=== PATIENT | male | born 1945 | race Caucasian/White ===

== ENCOUNTER 2017-01-04 01:36 | Inpatient (IN) | payer MEDICARE, OTHER ==
[~2017-01-04] VITALS: Ht 172.7 cm; Wt 73.4 kg
[2017-01-04] VITALS (20 sets, daily range): BP systolic 94–143; BP diastolic 58–85; PULSE 77–97; RESP 18–24; TEMP 96.6–100.7; O2SAT 92–98
[~2017-01-04 01:36] MED LIST: ALBU1AER INH; ASPI81TA82 PO; AZIT250T74 PO; DUONI NEB; MEDR4PAK3 PO; METO50CR PO; SIMV40TA PO; SYMB160A INH; TAMS0.4C67 PO; TRAZ100 PO; VENL-37 PO; Z.0.OXYGENDME NC
[2017-01-04] MEDS ORDERED: SODIUM CHLORIDE 0.9% FLUSH 5 ML FLUSH IVF PRN ×2 (01:45→04:15)
[2017-01-04] MEDS ORDERED: AZITHROMYCIN INJ 500 MG in SODIUM CHLOR 0.9% 250 ML INJ 250 ML IV ONE (01:45)
[2017-01-04] MEDS ORDERED: cefTRIAXone INJ 1,000 MG in SODIUM CHLORIDE 0.9% INJ 100 ML IV ONE (01:45)
[2017-01-04] MEDS ORDERED: methylPREDNISolone SOD SUCC 125 MG/2 ML VIAL IVP ONE (01:45)
[2017-01-04] MEDS ORDERED: ACETAMINOPHEN 325 MG TAB PO ONE (01:45)
[2017-01-04] MEDS: RESP: ALBUTEROL 2.5 MG/IPRATROPIUM 0.5 MG NEB (SCH) INH (01:47)
[2017-01-04] MEDS ORDERED: SYMB160A INH (01:49)
[2017-01-04] MEDS ORDERED: ASPI1TAB69 PO (01:49)
[2017-01-04] MEDS ORDERED: TAMS0.4C4 PO (01:49)
[2017-01-04] MEDS ORDERED: ALBU0.08 NEB (01:49)
[2017-01-04] MEDS ORDERED: VENL37.5 PO (01:49)
[2017-01-04] MEDS ORDERED: TRAZ100T4 PO (01:49)
[2017-01-04] MEDS ORDERED: ALBUAER3 INH (01:49)
[2017-01-04] MEDS ORDERED: SIMV40TA PO (01:49)
[2017-01-04] MEDS ORDERED: METO50TA11 PO (01:49)
--- NOTE | 2017-01-04 02:11 | RADHPO ---
EXAM DATE/TIME: 01/04/2017 02:03 [place] COMPARISON: CHEST SINGLE AP, April 18, 2016, 10:09. INDICATIONS : Shortness of breath for 2 days MEDICAL HISTORY : Hypertension. Chronic obstructive pulmonary disease. Hypercholesterolemia. Hiatal hernia. Asthma SURGICAL HISTORY : Cholecystectomy. Inguinal hernia repair. ENCOUNTER: Initial ACUITY: 2 days PAIN SCORE: 5/10 LOCATION: Bilateral chest FINDINGS: There is significant patient rotation towards the right. The left lung is clear. In the medial righ t lower lung, there is a focal area of consolidation causing loss of delineation of the medial right hemidiaphragm. The heart is normal in size when taking into consideration the rotation. No evidence pneumothorax. The osseous structures are grossly intact. CONCLUSION: Probable consolidative infiltrate in the medial right lower lung. Sreekanth Vital MD on January 04, 2017 at 2:08 Board Certified Radiologist. This report was verified electronically.
[2017-01-04 02:30] LABS: CHLORIDE 103 MEQ/L (98-107); POTASSIUM 3.9 MEQ/L (3.5-5.1); SODIUM (NA) 139 MEQ/L (136-145)
[2017-01-04 02:33] LABS: AUTOMATED NEUTROPHIL # 9.6 TH/MM3 (1.8-7.7); BASOPHIL % 0.3 % (0.0-2.0); EOSINOPHIL % 0.3 % (0.0-4.0); HEMATOCRIT 52.8 % (39.0-51.0); LYMPH % 5.4 % (9.0-44.0); LYMPHOCYTE # 0.6 TH/MM3 (1.0-4.8); MEAN CELL VOLUME 90.9 FL (80.0-100.0); MEAN CORPUSCULAR HEMOGLOBIN 30.4 PG (27.0-34.0); MEAN CORPUSCULAR HGB CONC 33.4 % (32.0-36.0); MONO % 3.7 % (0.0-8.0); NEUT % 90.3 % (16.0-70.0); PLATELET COUNT 144 TH/MM3 (150-450); RED BLOOD COUNT 5.81 MIL/MM3 (4.50-5.90); RED CELL DISTRIBUTION WIDTH 13.5 % (11.6-17.2); WHITE BLOOD COUNT 10.6 TH/MM3 (4.0-11.0)
[2017-01-04 02:34] LABS: ANION GAP 10 MEQ/L (5-15); BICARBONATE 25.7 MEQ/L (21.0-32.0); BLOOD UREA NITROGEN 13 MG/DL (7-18); MAGNESIUM 1.8 MG/DL (1.5-2.5)
[2017-01-04 02:35] LABS: HEMO FLAGS AUTO DIFF
[2017-01-04 02:36] LABS: APTT (PATIENT) 28.8 SEC (24.3-30.1); INTERNATIONAL NORMALIZED RATIO 1.1 RATIO; PROTHROMBIN TIME - PATIENT 11.9 SEC (9.8-11.6)
[2017-01-04 02:37] LABS: ALT (GPT) 27 U/L (12-78); AST (GOT) 27 U/L (15-37); GLOMERULAR FILTRATION RATE 54 ML/MIN (>89)
[2017-01-04 02:39] LABS: TOTAL BILIRUBIN ADULT 1.7 MG/DL (0.2-1.0)
[2017-01-04 02:40] LABS: ALKALINE PHOSPHATASE 96 U/L (45-117); CREATINE KINASE 582 U/L (39-308)
[2017-01-04 02:52] LABS: CKMB 1.1 NG/ML (0.5-3.6)
[2017-01-04 03:02] LABS: PLATELET ESTIMATE SMEAR NORMAL (NORMAL); PLATELET MORPHOLOGY NORMAL (NORMAL)
[2017-01-04 03:03] LABS: SCAN/DIFF AUTO DIFF CONFIRMED
[2017-01-04] MEDS ORDERED: ASPIRIN 81 MG CHEW TAB CHEW ONE (03:45)
[2017-01-04] MEDS ORDERED: NITROGLYCERIN 2% OINT 1 GM PACKET TOPICAL ONE (03:45)
[2017-01-04] MEDS ORDERED: SODIUM CHLOR 0.9% 1000 ML INJ 1,000 ML IV ONE ×4 (03:45→15:45)
[2017-01-04] MEDS ORDERED: RESP: ALBUTEROL 2.5 MG/IPRATROPIUM 0.5 MG NEB (SCH) NEB ONE (04:00)
[2017-01-04] MEDS ORDERED: ONDANSETRON HCL 4 MG/2 ML VIAL IVP PRN (04:15)
[2017-01-04] MEDS ORDERED: ACETAMINOPHEN 325 MG TAB PO PRN (04:15)
[2017-01-04] MEDS ORDERED: BISACODYL 10 MG SUPP PR PRN (04:15)
--- NOTE | 2017-01-04 04:43 | PD ---
HPI Chief Complaint: Respiratory Symptoms Time Seen by Provider: 01:39 Travel History International Travel<30 days: No Contact w/Intl Traveler<30days: No Traveled to known affect area: No History of Present Illness HPI 71-year-old male presents to the emergency department from home by EMS transport for 2 days of shortness of breath. Patient was identified to feel warm and concern for fever. Patient was given updrafts 3 with symptom relief. Patient has COPD. Patient is on supplemental oxygen at bedtime 2 L per nasal cannula. Patient's had congested cough. Patient denies chest pain or abdominal pain. No report of nausea vomiting or diarrhea. No recent antibiotic use. PFSH Past Medical History Narrative Medical Arthritis asthma hypertension dyslipidemia COPD anxiety depression carotid endarterectomy cholecystectomy no tobacco use nursing notes reviewed Hx Anticoagulant Therapy: Yes Arthritis: Yes Asthma: Yes Anxiety: Yes Depression: Yes Cancer: No Cardiovascular Problems: Yes High Cholesterol: Yes Congestive Heart Failure: No COPD: Yes Coronary Artery Disease: No Diabetes: No Diminished Hearing: No Endocrine: No Gastrointestinal Disorders: No Genitourinary: No Headaches: Yes Hepatitis: No Hiatal Hernia: Yes Hypertension: No Immune Disorder: No Implanted Vascular Access Dvce: No Medical other: No Musculoskeletal: No Neurologic: Yes (memo hands numbness/tingling) Psychiatric: Yes Reproductive: No Respiratory: Yes Immunizations Current: Yes Thyroid Disease: No Tetanus Vaccination: < 5 Years Influenza Vaccination: Yes Past Surgical History Abdominal Surgery: Yes (LAP JONA, MEMO. ING. HERNIA REP) AICD: No Cardiac Surgery: Yes (LEFT CAROTID ARTERY ENDARECTOMY) Cholecystectomy: Yes Ear Surgery: No Endocrine Surgery: No Eye Surgery: No Genitourinary Surgery: No Joint Replacement: No Neurologic Surgery: No Oral Surgery: No Pacemaker: No Thoracic Surgery: No Other Surgery: Yes (HERNIA REPAIR) Social History Alcohol Use: No Tobacco Use: No (QUIT 2005) Substance Use: No Allergies-Medications (Allergen,Severity, Reaction): Coded Allergies: Levaquin (Verified Allergy, Mild, ITCHING, 01/04/17) Penicillin (Verified Allergy, Mild, RASH, 01/04/17) Reported Meds & Prescriptions Reported Meds & Active Scripts Active Reported Effexor (Venlafaxine HCl) 37.5 Mg Tab 37.5 Mg PO DAILY Tamsulosin (Tamsulosin HCl) 0.4 Mg Cap 0.4 Mg PO HS Albuterol Neb (Albuterol Sulfate) 2.5 Mg/3 Ml Neb 2.5 Mg NEB QID NEB Simvastatin 40 Mg Tab 40 Mg PO HS Trazodone (Trazodone HCl) 100 Mg Tab 200 Mg PO HS Proair Hfa 8.5 GM Inh (Albuterol Sulfate) 90 Mcg/Act Aer 2 Puff INH Q4-6H PRN 108 mcg/actuation Metoprolol Succinate ER 24 HR (Metoprolol Succinate) 50 Mg Tab 50 Mg PO DAILY Symbicort Inh (Budesonide/Formoterol Fumarate) 160-4.5 Mcg/Act Aero 2 Puff INH Q12HR Aspirin 81 Mg Tabdr 81 Mg PO DAILY Review of Systems Except as stated in HPI: all other systems reviewed are Neg General / Constitutional: Positive: Fever Eyes: No: Visual changes HENT: No: Congestion Cardiovascular: No: Chest Pain or Discomfort (subjective) Respiratory: Positive: Cough, Shortness of Breath, Wheezing Gastrointestinal: No: Vomiting, Abdominal Pain Genitourinary: No: Flank Pain Musculoskeletal: No: Myalgias, Arthralgias Skin: No Rash Neurologic: Positive: Weakness Psychiatric: No: Anxiety Endocrine: No: Heat Intolerance Hematologic/Lymphatic: No: Easy Bruising Physical Exam Narrative GENERAL: Elderly male in no acute distress with complaint of shortness of breath : T: 100.7F; HR: 92: RR:20; BP: 122/84;O2sat: 94%;HR: 92; Neuro: GCS:15 CN: 2- 12 intact as tested SKIN: Warm and dry. HEAD: Normocephalic. EYES: No scleral icterus. No injection or drainage. NECK: Supple, trachea midline. No JVD or lymphadenopathy. CARDIOVASCULAR: Regular rate and rhythm without murmurs, gallops, or rubs. RESPIRATORY: Breath sounds equal bilaterally with wheezing and diminished. No accessory muscle use. GASTROINTESTINAL: Abdomen soft, non-tender, nondistended. MUSCULOSKELETAL: No cyanosis, or edema. BACK: Nontender without obvious deformity. No CVA tenderness. Data Data Last Documented VS Orders Complete Blood Count With Diff (01/04/17 01:39) Comprehensive Metabolic Panel (01/04/17 01:39) B-Type Natriuretic Peptide (01/04/17 01:39) Act Partial Throm Time (Ptt) (01/04/17 01:39) Prothrombin Time / Inr (Pt) (01/04/17 01:39) Magnesium (Mg) (01/04/17 01:39) Ckmb (Isoenzyme) Profile (01/04/17 01:39) Troponin I (01/04/17 01:39) Urinalysis - C+S If Indicated (01/04/17 01:39) Influenzae A/B Antigen (01/04/17 01:39) Blood Culture (01/04/17 01:39) Iv Access Insert/Monitor (01/04/17 01:39) Electrocardiogram (01/04/17 01:39) Ecg Monitoring (01/04/17 01:39) Oximetry (01/04/17:39) Oxygen Administration (01/04/17 01:39) Chest, Single Ap (01/04/17 01:39) Sodium Chloride 0.9% Flush (Ns Flush) (01/04/17 01:45) Methylprednisolone So Succ Inj (Solumedr (01/04/17 01:45) Albuterol-Ipratropium Neb (Duoneb Neb) (01/04/17 01:45) Acetaminophen (Tylenol) (01/04/17 01:45) Azithromycin Inj (Zithromax Inj) (01/04/17 01:45) Ceftriaxone Inj (Rocephin Inj) (01/04/17 01:45) Lactic Acid Sepsis Protocol (01/04/17 01:39) CKMB (01/04/17 01:56) CKMB% (01/04/17 01:56) Aspirin Chew (Aspirin Chew) (01/04/17 03:45) Sodium Chlor 0.9% 1000 Ml Inj (Ns 1000 M (01/04/17 03:45) Nitroglycerin 2% Oint (Nitroglycerin 2% (01/04/17 03:45) Albuterol-Ipratropium Neb (Duoneb Neb) (01/04/17 04:00) Admit Order (Ed Use Only) (01/04/17 ) ^ Saline Lock (01/04/17 04:10) Resp Oxygen Julián C Titrat 1-4 L (01/04/17 ) ^ Notify Dr: Other (01/04/17 04:10) Sodium Chloride 0.9% Flush (Ns Flush) (01/04/17 09:00) Sodium Chloride 0.9% Flush (Ns Flush) (01/04/17 04:15) Labs Laboratory Tests Test 01/04/17 01/04/17 01:56 03:30 White Blood Count 10.6 TH/MM3 Red Blood Count 5.81 MIL/MM3 Hemoglobin 17.7 GM/DL Hematocrit 52.8 % Mean Corpuscular Volume 90.9 FL Mean Corpuscular Hemoglobin 30.4 PG Mean Corpuscular Hemoglobin 33.4 % Concent Red Cell Distribution Width 13.5 % Platelet Count 144 TH/MM3 Mean Platelet Volume 7.1 FL Neutrophils (%) (Auto) 90.3 % Lymphocytes (%) (Auto) 5.4 % Monocytes (%) (Auto) 3.7 % Eosinophils (%) (Auto) 0.3 % Basophils (%) (Auto) 0.3 % Neutrophils # (Auto) 9.6 TH/MM3 Lymphocytes # (Auto) 0.6 TH/MM3 Monocytes # (Auto) 0.4 TH/MM3 Eosinophils # (Auto) 0.0 TH/MM3 Basophils # (Auto) 0.0 TH/MM3 CBC Comment AUTO DIFF Differential Comment AUTO DIFF CONFIRMED Platelet Estimate NORMAL Platelet Morphology Comment NORMAL Prothrombin Time 11.9 SEC Prothromb Time International 1.1 RATIO Ratio Activated Partial 28.8 SEC Thromboplast Time Sodium Level 139 MEQ/L Potassium Level 3.9 MEQ/L Chloride Level 103 MEQ/L Carbon Dioxide Level 25.7 MEQ/L Anion Gap 10 MEQ/L Blood Urea Nitrogen 13 MG/DL Creatinine 1.30 MG/DL Estimat Glomerular Filtration 54 ML/MIN Rate Random Glucose 108 MG/DL Calcium Level 8.7 MG/DL Magnesium Level 1.8 MG/DL Total Bilirubin 1.7 MG/DL Aspartate Amino Transf 27 U/L (AST/SGOT) Alanine Aminotransferase 27 U/L (ALT/SGPT) Alkaline Phosphatase 96 U/L Total Creatine Kinase 582 U/L Creatine Kinase MB 1.1 NG/ML Creatine Kinase MB % 0.2 % Troponin I 0.06 NG/ML B-Type Natriuretic Peptide 34 PG/ML Total Protein 8.4 GM/DL Albumin 4.3 GM/DL Lactic Acid Level 2.2 mmol/L MDM Medical Decision Making Medical Screen Exam Complete: Yes Emergency Medical Condition: Yes Medical Record Reviewed: Yes Interpretation(s) EKG: Normal sinus rhythm rate 93 and inverted T waves with anterior septal mild ST depression in V3 and V4 concerning for myocardial ischemia no acute ST elevation; changes noted to lesser extent on prior EKG Vital Signs Date Time Temp Pulse Resp B/P Pulse Ox O2 Delivery O2 Flow Rate FiO2 01/04/17 03:56 86 18 111/67 92 01/04/17 02:21 97 18 126/71 93 Nasal Cannula 2 01/04/17 02:20 93 Nasal Cannula 2 01/04/17 02:00 95 Nasal Cannula 2.00 01/04/17 01:56 92 Room Air 01/04/17 01:56 92 20 92 Room Air 01/04/17 01:56 94 20 92 Room Air 01/04/17 01:56 100.7 94 20 122/85 92 Room Air 01/04/17 01:50 100.7 94 20 122/85 92 Last Impressions Chest X-Ray 01/04/17 0139 Signed Impressions: Service Date/Time: Wednesday, January 04, 2017 02:03 - CONCLUSION: Probable consolidative infiltrate in the medial right lower lung. Sreekanth Vital MD CBC & BMP Diagram 01/04/17 01:56 Lactic acid: 2.2, elevated Troponin I: 0.06 elevated; CK: 582, elevated however MB percent is 0.2%, not elevated; BNP 34, not elevated Differential Diagnosis Exacerbation COPD pneumonia sepsis ACS Narrative Course Patient placed on cigar packer and shader IV access obtained specimens collected and sent for resulting patient administered DuoNeb updraft Solu-Medrol from EMS administered and patient given IV antibiotics after blood cultures obtained EKG performed which shows anterior septal ST-T changes for possible cardiac ischemia no acute ST elevation this is also noted on EMS EKG and Prilosec stent on prior EKGs; patient again queried regarding chest pain and denies chest pain. Chest x-ray shows right lower lobe medial infiltrate; patient with left shift 90 % neutrophils by automated differential; lactic acid is elevated 2.2 Patient is clinically improved and will be admitted for exacerbation COPD pneumonia as thirst/early sepsis; patient also noted to have elevated troponin I with ischemic changes on EKG administered aspirin and Nitropaste after IV fluid bolus. @ 0642 patient remains in the ED as ED hold for intermediate care bed --BP has decreased --additional liter of IV fluids administered and admitting team notified --recommendation for upgrade to ICU admission --aware case has been discussed with branch specialist --will see in consultation as needed; current BP: 98/ 58 map 71 hr 77 O2 sat 3L/M NC 96% afebrile GCS 15 voicing no complaints. Critical Care Narrative Aggregate critical care time was 40 minutes. Time to perform other separately billable procedures was not included in the critical care time. My time did not include minutes spent treating any other patients simultaneously or on activities that did not directly contribute to the patient's treatment. The services I provided to this patient were to treat and/or prevent clinically significant deterioration that could result in: Respiratory failure, septic shock, myocardial infarction, I provided critical care services requiring my management, as noted below: Chart data review, documentation time, medication orders and management, vital sign assessments/reviewing monitor data, ordering and reviewing lab tests, ordering and interpreting/reviewing x-rays and diagnostic studies, care of the patient and discussion of the patient with the admitting physicians. Sepsis Criteria SIRS Criteria (2 or more): Temp > 100.9 or < 96.8, Heart rate over 90 Sepsis Criteria (SIRS+source): Infect source susp/known (pneumonia) Severe Sepsis (+one): Lactate >2 Physician Communication Physician Communication Case discussed with on-call [facility] MD Dr Sherwood for admission; discussed with branch specialist, Dr Ferrari --will see in consultation as needed Diagnosis Primary Impression: Pneumonia Qualified Code: J18.1 - Pneumonia of right lower lobe due to infectious organism Additional Impressions: Chronic obstructive pulmonary disease with acute exacerbation Elevated troponin I level Sepsis Qualified Code: A41.9 - Sepsis, due to unspecified organism Admitting Information Admitting Physician Requests: Rachell Reeves MD Jan 04, 2017 04:43 organism Additional Impressions: Chronic obstructive pulmonary disease with acute exacerbation Elevated troponin I level Sepsis Qualified Code: A41.9 - Sepsis, due to unspecified organism Admitting Information Admitting Physician Requests: Rachell Reeves MD Jan 04, 2017 04:43
[2017-01-04] MEDS: methylPREDNISolone SOD SUCC 40 MG/1 ML VIAL IV PUSH SCH ×3 (05:33→18:08)
[2017-01-04 05:40] LABS: LACTIC ACID GHOST NOT REPORTABLE
[2017-01-04 05:57] LABS: BLOOD, URINE TRACE (NEG); GLUCOSE,URINE NEG (NEG); KETONE, URINE 15 mg/dL (NEG); NITRITE,URINE NEG (NEG)
[2017-01-04 06:31] LABS: METHOD OF COLLECTION VOIDED; MUCUS URINE FEW /lpf (OCC); URINE COLOR YELLOW (YELLW/STRAW)
[2017-01-04 06:32] LABS: BACTERIA, URINE RARE /hpf; SQUAMOUS EPITHELIAL CELL URINE 0-5 /hpf (0-5); WBC, URINE 0-2 /hpf (0-5)
[2017-01-04 06:33] LABS: COMMENT (UR) CULT NOT INDICATED; CULTURE IF INDICATED CULT NOT INDICATED
[2017-01-04] MEDS: RESP: ALBUTEROL 2.5 MG/IPRATROPIUM 0.5 MG NEB (SCH) NEB ×4 (07:24→19:25)
[2017-01-04] MEDS ORDERED: SODIUM CHLORIDE 0.9% FLUSH 5 ML FLUSH IVF SCH (09:00)
[2017-01-04] MEDS: SODIUM CHLORIDE 0.9% FLUSH 5 ML FLUSH FLUSH SCH ×2 (09:00→21:37)
[2017-01-04] MEDS: METOPROLOL SUCCINATE 50 MG EXTENDED RELEASE TAB PO SCH (09:00)
[2017-01-04] MEDS: BUDESONIDE-FORMOTEROL 160/4.5 MCG INHALER INH SCH ×2 (09:07→21:36)
[2017-01-04] MEDS: ASPIRIN EC 81 MG TABEC PO SCH (09:08)
[2017-01-04] MEDS: guaiFENesin E.R. 600 MG TAB PO SCH ×2 (09:08→21:36)
[2017-01-04] MEDS: VENLAFAXINE HCL XR 37.5 MG CAP PO SCH (09:09)
[2017-01-04] MEDS: cefTRIAXone INJ 1,000 MG in SODIUM CHLORIDE 0.9% INJ 100 ML IV SCH (13:55)
[2017-01-04] MEDS ORDERED: NITROGLYCERIN 0.4 MG SL 25 TABS/BTL SL PRN (14:15)
[2017-01-04 14:49] LABS: CKMB 3.9 NG/ML (0.5-3.6)
--- NOTE | 2017-01-04 15:54 | HHI.HP ---
[facility] Jessica Yeboah MD Admission Diagnosis pneumonia; sirs; exacerbation COPD;elevated troponin I Diagnoses: Chief Complaint: Shortness of breath for 2 days Travel History International Travel<30 Days: No Contact w/Intl Traveler <30 Da: No Traveled to Known Affected Are: No Sepsis Criteria SIRS Criteria (2 or more): Temp > 100.9 or < 96.8, WBC > 75533, < 4000 or > 10 % bands Sepsis Criteria (SIRS+source): Infect source susp/known Severe Sepsis (+one): Hypotension History of Present Illness This patient is a very pleasant 71-year-old gentleman who was in reasonable state of health until the last 3 days. The patient had come to the emergency room complaining of this and was found to have bilateral pneumonia with evidence of sepsis. Chest x-ray on my evaluation does show right lower lobe pneumonia He was admitted and given IV antibiotics. Patient also found to have acute kidney injury, rhabdomyolysis. Suddenly he began complaining of chest pain and tightness for 2 hours and had abnormal EKG on my evaluation and elevated cardiac enzymes. Patient says this chest discomfort, improved with nitroglycerin. He has not eaten in several days because he has felt ill. He has had a strong family history of cardiac disease including his mother and his brother having had cardiac events and his mother dying of cardiac heart failure. The patient does have signs and symptoms of sepsis and COPD underlying and has been therefore admitted for further treatment and evaluation of pneumonia and sepsis with elevated troponin. Review of Systems Constitutional: DENIES: Diaphoretic episodes, Fatigue, Fever, Weight gain, Weight loss, Chills, Dizziness, Change in appetite, Night Sweats Endocrine: DENIES: Heat/cold intolerance, Polydipsia, Polyuria, Polyphagia Eyes: DENIES: Blurred vision, Diplopia, Eye inflammation, Eye pain, Vision loss , Photosensitivity, Double Vision Ears, nose, mouth, throat: DENIES: Tinnitus, Hearing loss, Vertigo, Nasal discharge, Oral lesions, Throat pain, Hoarseness, Ear Pain, Running Nose, Epistaxis, Sinus Pain, Toothache, Odynophagia Respiratory: COMPLAINS OF: Cough, Shortness of breath, DENIES: Apneas, Snoring , Wheezing, Hemoptysis, Sputum production Cardiovascular: COMPLAINS OF: Chest pain, DENIES: Palpitations, Syncope, Dyspnea on Exertion, PND, Lower Extremity Edema, Orthopnea, Claudication Gastrointestinal: DENIES: Abdominal pain, Black stools, Bloody stools, Constipation, Diarrhea, Nausea, Vomiting, Difficulty Swallowing, Anorexia Genitourinary: DENIES: Sexual dysfunction, Urinary frequency, Urinary incontinence, Urgency, Hematuria, Dysuria, Nocturia, Penile Discharge, Testicular Pain, Testicular Swelling Musculoskeletal: DENIES: Joint pain, Muscle aches, Stiffness, Joint Swelling, Back pain, Neck pain Integumentary: DENIES: Abnormal pigmentation, Nail changes, Pruritus, Rash Hematologic/lymphatic: DENIES: Bruising, Lymphadenopathy Immunologic/allergic: DENIES: Eczema, Urticaria Neurologic: DENIES: Abnormal gait, Headache, Localized weakness, Paresthesias, Seizures, Speech Problems, Tremor, Poor Balance Psychiatric: DENIES: Anxiety, Confusion, Mood changes, Depression, Hallucinations, Agitation, Suicidal Ideation, Homicidal Ideation, Delusions Past Family Social History Past Medical History COPD Left carotid surgery. Past Surgical History Carotid artery surgery, cholecystectomy, bilateral hernia repair Reported Medications Reviewed in the medical record Allergies: Coded Allergies: Levaquin (Verified Allergy, Mild, ITCHING, 01/04/17) Penicillin (Verified Allergy, Mild, RASH, 01/04/17) Active Ordered Medications Reviewed in the medical record Family History Mother of congestive heart failure at 82, father from stomach cancer. Brother had a heart attack at 78 and another brother from diphtheria as a child Social History Lives with a friend, no tobacco or alcohol dependency Physical Exam Vital Signs Vital Signs Date Time Temp Pulse Resp B/P Pulse Ox O2 Delivery O2 Flow Rate FiO2 01/04/17 15:20 77 20 130/70 94 Nasal Cannula 3 01/04/17 13:50 85 18 112/65 96 Nasal Cannula 3 01/04/17 12:05 78 20 125/72 96 Nasal Cannula 3 01/04/17 10:40 85 20 118/79 98 Nasal Cannula 3 01/04/17 09:10 86 20 94/60 95 Nasal Cannula 3 01/04/17 07:26 96 Nasal Cannula 4.00 01/04/17 07:20 97.7 85 22 136/69 97 Nasal Cannula 4 01/04/17 07:20 22 97 Nasal Cannula 4 01/04/17 07:20 97 Nasal Cannula 4 01/04/17 06:40 96.6 78 22 98/58 93 01/04/17 04:17 85 22 111/67 95 Nasal Cannula 2 01/04/17 03:56 86 18 111/67 92 01/04/17 02:21 97 18 126/71 93 Nasal Cannula 2 01/04/17 02:20 93 Nasal Cannula 2 01/04/17 02:00 95 Nasal Cannula 2.00 01/04/17 01:56 92 Room Air 01/04/17 01:56 92 20 92 Room Air 01/04/17 01:56 94 20 92 Room Air 01/04/17 01:56 100.7 94 20 122/85 92 Room Air 01/04/17 01:50 100.7 94 20 122/85 92 Physical Exam GENERAL: This is a well-nourished, well-developed patient, who appears ill SKIN: No rashes, ecchymoses or lesions. Cool and dry. HEAD: Atraumatic. Normocephalic. No temporal or scalp tenderness. EYES: Pupils equal round and reactive. Extraocular motions intact. No scleral icterus. No injection or drainage. ENT: Nose without bleeding, purulent drainage or septal hematoma. Throat without erythema, tonsillar hypertrophy or exudate. Uvula midline. Airway patent. NECK: Trachea midline. No JVD or lymphadenopathy. Supple, nontender, no meningeal signs. CARDIOVASCULAR: Regular rate and rhythm without murmurs, gallops, or rubs. RESPIRATORY: Clear to auscultation. Breath sounds equal bilaterally. No wheezes , rales, or rhonchi. GASTROINTESTINAL: Abdomen soft, non-tender, nondistended. No hepato-splenomegaly , or palpable masses. No guarding. MUSCULOSKELETAL: Extremities without clubbing, cyanosis, or edema. No joint tenderness, effusion, or edema noted. No calf tenderness. Negative Homans sign bilaterally. NEUROLOGICAL: Awake and alert. Cranial nerves II through XII intact. Motor and sensory grossly within normal limits. Five out of 5 muscle strength in all muscle groups. Normal speech. Laboratory Laboratory Tests Test 01/04/17 01/04/17 01/04/17 01/04/17 01:56 03:30 05:40 06:44 White Blood Count 10.6 Red Blood Count 5.81 Hemoglobin 17.7 Hematocrit 52.8 Mean Corpuscular Volume 90.9 Mean Corpuscular Hemoglobin 30.4 Mean Corpuscular Hemoglobin 33.4 Concent Red Cell Distribution Width 13.5 Platelet Count 144 Mean Platelet Volume 7.1 Neutrophils (%) (Auto) 90.3 Lymphocytes (%) (Auto) 5.4 Monocytes (%) (Auto) 3.7 Eosinophils (%) (Auto) 0.3 Basophils (%) (Auto) 0.3 Neutrophils # (Auto) 9.6 Lymphocytes # (Auto) 0.6 Monocytes # (Auto) 0.4 Eosinophils # (Auto) 0.0 Basophils # (Auto) 0.0 CBC Comment AUTO DIFF Differential Comment AUTO DIFF CONFIRMED Platelet Estimate NORMAL Platelet Morphology Comment NORMAL Prothrombin Time 11.9 Prothromb Time International 1.1 Ratio Activated Partial 28.8 Thromboplast Time Sodium Level 139 Potassium Level 3.9 Chloride Level 103 Carbon Dioxide Level 25.7 Anion Gap 10 Blood Urea Nitrogen 13 Creatinine 1.30 Estimat Glomerular Filtration 54 Rate Random Glucose 108 Calcium Level 8.7 Magnesium Level 1.8 Total Bilirubin 1.7 Aspartate Amino Transf 27 (AST/SGOT) Alanine Aminotransferase 27 (ALT/SGPT) Alkaline Phosphatase 96 Total Creatine Kinase 582 Creatine Kinase MB 1.1 Creatine Kinase MB % 0.2 Troponin I 0.06 B-Type Natriuretic Peptide 34 Total Protein 8.4 Albumin 4.3 Lactic Acid Level 2.2 2.9 Urine Collection Type VOIDED Urine Color YELLOW Urine Turbidity CLEAR Urine pH 6.0 Urine Specific [place] 1.018 Urine Protein 30 Urine Glucose (UA) NEG Urine Ketones 15 Urine Occult Blood TRACE Urine Nitrite NEG Urine Bilirubin NEG Urine Leukocyte Esterase NEG Urine WBC 0-2 Urine Squamous Epithelial 0-5 Cells Urine Bacteria RARE Urine Mucus FEW Microscopic Urinalysis Comment CULT NOT INDICATED Test 01/04/17 01/04/17 10:35 14:07 Troponin I 0.42 0.32 Total Creatine Kinase 915 Creatine Kinase MB 3.9 Creatine Kinase MB % 0.4 Date/Time Procedure Status Source Growth 01/04/17 01:55 Influenza Types A,B Antigen ([facility]) - Final Complete Nasal Washing NEGATIVE FOR FLU A AND B ANTIGEN.... 01/04/17 01:55 Aerobic Blood Culture Received Blood Peripheral Pending 01/04/17 01:55 Anaerobic Blood Culture Received Blood Peripheral Pending Result Diagram: 01/04/17 0156 01/04/17155 Septic Shock Reassessment Heart: Regular rate and rhythm, Irregular Skin: Warm Peripheral Pulses: Bounding Right Radial Bounding Left Radial Bounding Right Popliteal Bounding Left Popliteal Bounding Right Dorsalis Pedis Bounding Left Dorsalis Pedis Bounding Right Posterior Tibial Bounding Left Posterior Tibial Assessment and Plan Problem List: (1) Pneumonia ICD Code: J18.9 Status: Acute Plan: Evidence of severe sepsis due to hypotension, acute kidney injury and fever Continue empiric antibiotics, Rocephin and azithromycin, follow blood cultures (2) COPD (chronic obstructive pulmonary disease) ICD Code: J44.9 Status: Chronic Plan: Continue with nebulized bronchodilators, IV steroids follow O2 needs (3) Rhabdomyolysis ICD Code: M62.82 Status: Acute Plan: Continue IV hydration, follow CPK. Physician Certification 2 Midnight Certification Type: Admission for Inpatient Services Order for Inpatient Services The services are ordered in accordance with Medicare regulations or non- Medicare payer requirements, as applicable. In the case of services not specified as inpatient-only, they are appropriately provided as inpatient services in accordance with the 2-midnight benchmark. Estimated LOS (days): 3 3 days is the estimated time the patient will need to remain in the hospital, assuming treatment plan goals are met and no additional complications. Post-Hospital Plan: Home Problem Qualifiers (1) Pneumonia: Qualified Code: J18.1 - Pneumonia of right lower lobe due to infectious organism Tsering Hung MD Jan 04, 2017 15:54
[2017-01-04] MEDS: ENOXAPARIN SODIUM 80 MG/0.8 ML SYRINGE SQ SCH (16:01)
[2017-01-04] MEDS: SODIUM CHLOR 0.9% 1000 ML INJ 1,000 ML IV SCH (16:02)
[2017-01-04 16:40] LABS: BICARBONATE 18.5 MEQ/L (21.0-32.0); POTASSIUM 3.2 MEQ/L (3.5-5.1)
[2017-01-04] MEDS ORDERED: cefTRIAXone INJ 1,000 MG in SODIUM CHLORIDE 0.9% INJ 100 ML IV SCH (18:00)
--- NOTE | 2017-01-04 18:40 | EKG ---
Date Performed: 01/04/2017 Time Performed: 14:00:40 PTAGE: 71 years EKG: Sinus rhythm Ant/septal and lateral ST-T changes may be due to myocardial ischemia Low QRS voltages in limb leads Abnormal ECG PREVIOUS TRACING : 01/04/2017 01.41 Compared to prior tracing no significant change DOCTOR: Juan A Castano Interpretating Date/Time 01/04/2017 18:39:06
--- NOTE | 2017-01-04 19:26 | EKG ---
Date Performed: 01/04/2017 Time Performed: 01:41:10 PTAGE: 71 years EKG: Sinus rhythm Ant/septal and lateral ST-T changes may be due to myocardial ischemia Low QRS voltages in limb leads Abnormal ECG PREVIOUS TRACING : 04/18/2016 22.09 Compared to prior tracing no significant change DOCTOR: Juan A Castano Interpretating Date/Time 01/04/2017 19:24:54
[2017-01-04] MEDS: PRAVASTATIN SOD 80 MG TAB PO SCH (21:36)
[2017-01-04] MEDS: TAMSULOSIN HCL 0.4 MG CAP PO SCH (21:36)
[2017-01-04] MEDS: traZODone HCL 100 MG TAB PO SCH (21:36)
[2017-01-05] VITALS (15 sets, daily range): BP systolic 96–147; BP diastolic 53–68; PULSE 70–93; RESP 20–24; TEMP 98–98.3; O2SAT 93–97
[2017-01-05] MEDS: cefTRIAXone INJ 1,000 MG in SODIUM CHLORIDE 0.9% INJ 100 ML IV SCH ×3 (01:07→23:37)
[2017-01-05] MEDS: methylPREDNISolone SOD SUCC 40 MG/1 ML VIAL IV PUSH SCH ×5 (01:07→23:37)
[2017-01-05 01:15] LABS: CKMB 7.7 NG/ML (0.5-3.6)
[2017-01-05] MEDS ORDERED: SODIUM CHLORID 0.9% 500 ML INJ 500 ML IV ONE (02:00)
[2017-01-05] MEDS: SODIUM CHLOR 0.9% 1000 ML INJ 1,000 ML IV SCH ×3 (02:06→21:28)
[2017-01-05] MEDS: RESP: ALBUTEROL 2.5 MG/IPRATROPIUM 0.5 MG NEB (PRN) NEB ×2 (03:05→23:57)
[2017-01-05] MEDS: ENOXAPARIN SODIUM 80 MG/0.8 ML SYRINGE SQ SCH ×2 (03:07→14:29)
[2017-01-05] MEDS: AZITHROMYCIN INJ 500 MG in SODIUM CHLOR 0.9% 250 ML INJ 250 ML IV SCH (05:44)
[2017-01-05 05:55] LABS: AUTOMATED NEUTROPHIL # 11.6 TH/MM3 (1.8-7.7); BASOPHIL % 0.1 % (0.0-2.0); HEMATOCRIT 38.2 % (39.0-51.0); HEMO FLAGS DIFF FINAL; LYMPH % 2.6 % (9.0-44.0); LYMPHOCYTE # 0.3 TH/MM3 (1.0-4.8); MEAN CELL VOLUME 89.9 FL (80.0-100.0); MEAN CORPUSCULAR HEMOGLOBIN 30.7 PG (27.0-34.0); MEAN CORPUSCULAR HGB CONC 34.1 % (32.0-36.0); MONO % 2.5 % (0.0-8.0); NEUT % 94.8 % (16.0-70.0); PLATELET COUNT 131 TH/MM3 (150-450); RED BLOOD COUNT 4.25 MIL/MM3 (4.50-5.90); RED CELL DISTRIBUTION WIDTH 13.9 % (11.6-17.2); WHITE BLOOD COUNT 12.3 TH/MM3 (4.0-11.0)
[2017-01-05 06:23] LABS: ANION GAP 11 MEQ/L (5-15); AST (GOT) 38 U/L (15-37); BICARBONATE 19.7 MEQ/L (21.0-32.0); BLOOD UREA NITROGEN 11 MG/DL (7-18); CHLORIDE 117 MEQ/L (98-107); GLOMERULAR FILTRATION RATE 95 ML/MIN (>89); POTASSIUM 3.5 MEQ/L (3.5-5.1); SODIUM (NA) 148 MEQ/L (136-145)
[2017-01-05 06:26] LABS: ALKALINE PHOSPHATASE 54 U/L (45-117); ALT (GPT) 23 U/L (12-78); TOTAL BILIRUBIN ADULT 0.3 MG/DL (0.2-1.0)
[2017-01-05] MEDS: RESP: ALBUTEROL 2.5 MG/IPRATROPIUM 0.5 MG NEB (SCH) NEB ×4 (08:04→20:28)
[2017-01-05] MEDS: BUDESONIDE-FORMOTEROL 160/4.5 MCG INHALER INH SCH ×2 (08:59→21:23)
[2017-01-05] MEDS: METOPROLOL SUCCINATE 50 MG EXTENDED RELEASE TAB PO SCH (08:59)
[2017-01-05] MEDS: guaiFENesin E.R. 600 MG TAB PO SCH ×2 (08:59→21:00)
[2017-01-05] MEDS: SODIUM CHLORIDE 0.9% FLUSH 5 ML FLUSH FLUSH SCH ×2 (08:59→21:23)
[2017-01-05] MEDS: ASPIRIN EC 81 MG TABEC PO SCH (08:59)
[2017-01-05] MEDS: VENLAFAXINE HCL XR 37.5 MG CAP PO SCH ×2 (09:00→21:23)
--- NOTE | 2017-01-05 11:37 | HHI.PR ---
Subjective Remarks Follow up on respiratory failure, increase troponin, rhabdomyolysis, pneumonia Patient complaining of worsening breathing but chest pain is better, no nausea or vomiting Objective Vitals Vital Signs Date Time Temp Pulse Resp B/P Pulse Ox O2 Delivery O2 Flow Rate FiO2 01/05/17 10:00 74 01/05/17 08:04 96 Nasal Cannula 3.00 01/05/17 08:00 83 01/05/17 08:00 98.0 83 20 147/64 97 01/05/17 06:00 74 01/05/17 04:00 98.2 71 22 109/53 95 01/05/17 04:00 71 01/05/17 02:00 93 01/05/17 00:00 98.0 71 22 96/55 95 01/05/17 00:00 70 01/04/17 22:00 86 01/04/17 21:00 97.9 92 24 143/67 95 01/04/17 20:29 18 95 01/04/17 19:27 95 Nasal Cannula 3.00 01/04/17 19:12 83 20 95 Nasal Cannula 3 01/04/17 19:12 86 20 119/62 94 Nasal Cannula 3 01/04/17 18:10 87 20 117/64 97 Nasal Cannula 3 01/04/17 16:40 77 18 128/65 96 Nasal Cannula 3 01/04/17 16:40 18 96 Nasal Cannula 3 01/04/17 16:40 96 Nasal Cannula 3 01/04/17 15:20 77 20 130/70 94 Nasal Cannula 3 01/04/17 13:50 85 18 112/65 96 Nasal Cannula 3 01/04/17 12:05 78 20 125/72 96 Nasal Cannula 3 I/O 01/04/17 01/04/17 01/04/17 01/05/17 01/05/17 01/05/17 07:00 15:00 23:00 07:00 15:00 23:00 Intake Total 3350 ml 2340 ml 1255 ml Output Total 1000 ml 600 ml 650 ml Balance 2350 ml 1740 ml 605 ml Intake Oral 240 ml 0 ml IV Total 3350 ml 2100 ml 1255 ml Output Urine Total 1000 ml 600 ml 650 ml Stool Total 0 ml 0 ml Result Diagram: 01/05/17 0539 01/05/17 0539 Objective Remarks GENERAL: This is a frail 71 years old male well-developed patient, in no apparent distress. SKIN: No rashes, warm and dry HEAD: Atraumatic. Normocephalic. EYES: Pupils equal round and reactive. Extraocular motions intact. No scleral icterus. ENT: Nose without bleeding, or drainage, Airway patent. NECK: Trachea midline. Supple CARDIOVASCULAR: Regular rate and rhythm without murmurs, gallops, or rubs. RESPIRATORY: Mild diminished breath sounds bibasilar GASTROINTESTINAL: Abdomen soft, non-tender, nondistended. Positive bowel sounds MUSCULOSKELETAL: Extremities without clubbing, cyanosis, or edema. Pedal pulses appreciated NEUROLOGICAL: Awake and alert. Moves all extremity. Normal speech.no focal neurological deficit A/P Problem List: (1) Pneumonia ICD Code: J18.9 Status: Acute (2) COPD (chronic obstructive pulmonary disease) ICD Code: J44.9 Status: Chronic (3) Rhabdomyolysis ICD Code: M62.82 Status: Acute (4) Elevated troponin I level ICD Code: R74.8 Status: Acute Assessment and Plan Acute respiratory failure Lactic acidosis Right lower lobe pneumonia Rhabdomyolysis>> little increased Increase troponin rule out ACS/non-STEMI Hypokalemia>> resolved DVT prophylaxis on full anticoagulation Lovenox Plan: Admited to ICU O2, DuoNeb, Solu-Medrol Rocephin and Zithromax Sputum culture if available Urine antigen for Legionella and pneumococcus Iv fluid, monitor CK Start full into ablation Lovenox Cardiac enzyme continue monitoring Cardiology consult, I discussed with Dr. Velazco over the phone, he recommended continuing Lovenox for now, he would like to do stress test some point when he is more stable Repeat lactic acid today Problem Qualifiers (1) Pneumonia: Qualified Code: J18.1 - Pneumonia of right lower lobe due to infectious organism Rafia Bhatt MD Jan 05, 2017 11:37 Rafia Bhatt MD Jan 05, 2017 11:37
[2017-01-05] MEDS: ACETAMINOPHEN/HYDROcodone 325 MG/5 MG TAB PO PRN (12:07)
--- NOTE | 2017-01-05 12:12 | MB ---
cc: JUAN A BARTLETT DO DATE OF CONSULTATION: 01/05/2017 REASON FOR CONSULTATION Elevation of troponins. HISTORY OF PRESENT ILLNESS Karlo Waite is a pleasant 71-year-old male who presented to [facility] Emergency Room on January 04, 2017 due to shortness of breath. On arrival he was found to have bilateral pneumonia with evidence of sepsis. While here he started having more extensive shortness of breath and then felt some chest tightness. He felt like that during this he just could not get his breath and that is what was causing it. He denies pressure, stabbing, burning within the chest. EKG was done which shows anterior and septal T-wave changes but no significant difference from March,. During this cardiac enzymes were done and he had an elevation of 0.42 decreasing to 0.17. He was given a nitro during this and it bottomed out his blood pressure. Currently seeing him he states that he has no chest pain but still has shortness of breath and feels that he is somewhat wheezy from his COPD. PAST MEDICAL HISTORY 1. Chronic obstructive pulmonary disease. 2. Peripheral vascular disease with previous left carotid surgery. PAST SURGICAL HISTORY 1. Left carotid endarterectomy (around 2006). 2. Cholecystectomy. 3. Previous cardiac catheterization (2006 before his carotid endarterectomy) with unknown coronary anatomy. 4. Bilateral hernia repair. ALLERGIES 1. LEVAQUIN 2. PENICILLIN. MEDICATIONS 1. Symbicort two puffs every 12 hours. 2. Flomax 0.4 mg every night. 3. Trazodone 200 mg every night, 4. Effexor 37.5 mg daily. 5. Albuterol two puffs every 4-6 hours as needed. 6. Toprol XL 50 mg daily. 7. Zocor 40 mg every night. 8. Aspirin 81 mg daily. FAMILY HISTORY Mother of congestive heart failure at the age of 82. Father of stomach cancer. Brother had a heart attack at age 78. Another brother from diphtheria as a child. SOCIAL HISTORY The patient lives with a friend. Denies tobacco or alcohol dependency. REVIEW OF SYSTEMS Fourteen systems were reviewed including osteopathic, pertinent positives and negatives above otherwise negative. PHYSICAL EXAMINATION VITAL SIGNS: Temperature 98.2, heart rate 74, blood pressure 109/53, respirations 22, pulse ox 96% on 3 liters. GENERAL: The patient appears well, in no acute distress. Alert, awake and oriented x3. HEAD, EYES, EARS, NOSE AND THROAT: Extraocular muscles intact. Mucous membranes moist. NECK: Neck is supple. No JVD at 45 degrees. No carotid bruits heard bilaterally. Carotid upstroke is brisk in nature. HEART: Heart is regular rate and rhythm. Positive first and second heart sounds with no noted murmurs, gallops or rubs. PMI is nondisplaced. LUNGS: Lungs have decreased breath sounds bilaterally with scattered rhonchi and exertional wheezing. ABDOMEN: Abdomen is soft, nontender, nondistended. No organomegaly noted. EXTREMITIES: Extremities show no clubbing, cyanosis or edema. Femoral and distal pulses intact bilaterally. NEUROLOGIC: No focal deficits. SKIN: Warm, dry and intact. OSTEOPATHIC: Osteopathically, no kyphoscoliosis, scoliosis, lordosis or paraspinal tender points. LABORATORY DATA White blood cells 12.3, hemoglobin 13.0, hematocrit 38.2, platelets 131. Potassium 3.5, BUN 11, creatinine 0.8, troponin 0.42 decreasing to 0.17, creatine kinase 1825. Electrocardiogram (January 04, 2017 at 1400): Normal sinus rhythm, anteroseptal ST-T wave changes. No change from January 04, 2017 at 0141 or April 18, 2016. IMPRESSIONS 1. Atypical chest pain for coronary insufficiency with some concerning features. 2. Elevation of troponins with a quick drop-off may be type 2 in nature. 3. Elevation of CK is consistent with rhabdomyolysis. 4. Bilateral pneumonia. 5. Sepsis. 6. Lactic acidosis. 7. Abnormal EKG. No significant change from March,. 8. History of peripheral vascular disease with previous left CEA (2006). RECOMMENDATIONS 1. Mr. Waite does have an elevation of his troponins and has some chest pain, although it was felt this was somewhat atypical for coronary insufficiency. 2. He currently has sepsis, lactic acidosis and bilateral pneumonia which may be a cause as well as his COPD and hypoxia of his elevation of his troponins. 3. For right now, I would continue supportive care. Eventually he will need to undergo an ischemic evaluation. For right now, I would plan on a possible pharmacologic nuclear stress test once he is through his acute illness. I will further discuss this with him and consideration of cardiac catheterization if he would like. 4. We will check a 2D echo to look at his overall left ventricular function, cardiac structure and possible valvulopathies. 5. He will continue on aspirin and statin therapy. 6. We will currently avoid beta-pamela due to his acute COPD exacerbation. 7. Further recommendations will be made based on the hospital course. Thank you for allowing me to see Karlo Waite. If there are any questions, please do not hesitate to call. Juan A Bartlett DO VGP/BJF /8:36 AM /11:40 AM
--- NOTE | 2017-01-05 17:22 | EC ---
Study Study Date:01/05/2017 STUDY CONCLUSIONS SUMMARY - Left ventricle: The cavity size was normal. Wall thickness was normal. Systolic function was normal. The estimated ejection fraction was in the range of 50% to 55%. Wall motion was normal; there were no regional wall motion abnormalities. - Pulmonary arteries: PA peak pressure: 31mm Hg (S). If LV function is below 40, please consider prescribing an ACEI or ARB or document rationale for non-use. PROCEDURE DATA STUDY STATUS: Elective. Procedure: Transthoracic echocardiography. Image quality was good. Scanning was performed from the parasternal, apical, and subcostal acoustic windows. Study completion: The patient tolerated the procedure well. Transthoracic echocardiography. M-mode, complete 2D, complete spectral Doppler, and color Doppler. Patient status: Inpatient. CARDIAC ANATOMY LEFT VENTRICLE: The cavity size was normal. Wall thickness was normal. Systolic function was normal. The estimated ejection fraction was in the range of 50% to 55%. Wall motion was normal; there were no regional wall motion abnormalities. AORTIC VALVE: Trileaflet; normal thickness, moderately calcified leaflets. Doppler: Transvalvular velocity was within the normal range. There was no stenosis. No regurgitation. Peak gradient: 11mm Hg (S). AORTA: Aortic root: The aortic root was normal in size. MITRAL VALVE: Structurally normal valve. Doppler: Transvalvular velocity was within the normal range. There was no evidence for stenosis. Trace regurgitation. Peak gradient: 3mm Hg (D). LEFT ATRIUM: The atrium was normal in size. RIGHT VENTRICLE: The cavity size was normal. Wall thickness was normal. PULMONIC VALVE: Doppler: Transvalvular velocity was within the normal range. There was no evidence for stenosis. No regurgitation. TRICUSPID VALVE: Structurally normal valve. Doppler: Transvalvular velocity was within the normal range. Trace regurgitation. PULMONARY ARTERY: The main pulmonary artery was normal-sized. Systolic pressure was within the normal range. RIGHT ATRIUM: The atrium was normal in size. PERICARDIUM: There was no pericardial effusion. SYSTEMIC VEINS: Inferior vena cava: The vessel was normal in size. BASIC MEASUREMENTS ADULT Normal Left ventricle LV internal dimension, ED, chordal level, 49.7 mm 43-52 PLAX LV internal dimension, ES, chordal level, *40.4 mm 23-38 PLAX Fractional shortening, chordal level, PLAX *19 % >29 LV posterior wall thickness, ED 6.7 mm IVS/LVPW ratio, ED *1.32 <1.3 Ventricular septum Septal thickness, ED 8.82 mm Aortic valve Leaflet separation 18 mm 15-26 Left atrium Anterior-posterior dimension 35 mm Right ventricle RV internal dimension, ED, PLAX 26.8 mm 19-38 BASIC MEASUREMENTS ADULT Normal Aortic valve Leaflet separation 18 mm 15-26 Aorta Root diameter, ED 36 mm 20-37 DOPPLER MEASUREMENTS ADULT Normal Main pulmonary artery Pressure, S *31 mm Hg =30 Aortic valve Peak velocity, S 163 cm/s Peak gradient, S 11 mm Hg Mitral valve Peak E-wave velocity 92.8 cm/s Peak A-wave velocity 93.3 cm/s Peak gradient, D 3 mm Hg Peak E/A ratio 1 Tricuspid valve Regurgitant peak velocity 212 cm/s Peak RV-RA gradient, S 18 mm Hg Maximal regurgitant velocity 212 cm/s Systemic veins Estimated CVP 5 mm Hg Right ventricle RV pressure, S *31 mm Hg <30 LEGEND: Mean values are shown as u=mean value. Asterisk (*) marino values outside specified normal range. Prepared and signed by Norman Enrique [id number]
[2017-01-05] MEDS: PRAVASTATIN SOD 80 MG TAB PO SCH (21:00)
[2017-01-05] MEDS: TAMSULOSIN HCL 0.4 MG CAP PO SCH (21:00)
[2017-01-05] MEDS: traZODone HCL 100 MG TAB PO SCH (21:23)
[2017-01-06] VITALS (15 sets, daily range): BP systolic 110–170; BP diastolic 59–82; PULSE 63–86; RESP 20–24; TEMP 97.2–98.7; O2SAT 93–98
[2017-01-06] MEDS: RESP: ALBUTEROL 2.5 MG/IPRATROPIUM 0.5 MG NEB (PRN) NEB (04:49)
[2017-01-06] MEDS: methylPREDNISolone SOD SUCC 40 MG/1 ML VIAL IV PUSH SCH ×3 (05:20→17:53)
[2017-01-06] MEDS: ENOXAPARIN SODIUM 80 MG/0.8 ML SYRINGE SQ SCH ×2 (05:20→16:00)
[2017-01-06] MEDS: AZITHROMYCIN INJ 500 MG in SODIUM CHLOR 0.9% 250 ML INJ 250 ML IV SCH (05:20)
[2017-01-06] MEDS: SODIUM CHLOR 0.9% 1000 ML INJ 1,000 ML IV SCH (05:21)
[2017-01-06] MEDS: RESP: ALBUTEROL 2.5 MG/IPRATROPIUM 0.5 MG NEB (SCH) NEB ×4 (07:16→20:50)
[2017-01-06] MEDS: METOPROLOL SUCCINATE 50 MG EXTENDED RELEASE TAB PO SCH (08:30)
[2017-01-06] MEDS: guaiFENesin E.R. 600 MG TAB PO SCH ×2 (08:30→20:58)
[2017-01-06] MEDS: ASPIRIN EC 81 MG TABEC PO SCH (08:30)
[2017-01-06] MEDS: VENLAFAXINE HCL XR 37.5 MG CAP PO SCH ×2 (08:30→20:59)
[2017-01-06] MEDS: ACETAMINOPHEN/HYDROcodone 325 MG/5 MG TAB PO PRN ×2 (08:31→13:29)
[2017-01-06] MEDS: MORPHINE SULFATE 4 MG/ML INJ IV PRN ×2 (08:31→13:29)
[2017-01-06] MEDS: SODIUM CHLORIDE 0.9% FLUSH 5 ML FLUSH FLUSH SCH ×2 (08:31→21:00)
[2017-01-06] MEDS: BUDESONIDE-FORMOTEROL 160/4.5 MCG INHALER INH SCH ×2 (08:31→20:57)
--- NOTE | 2017-01-06 08:46 | PD.CARD.PN ---
Subjective Subjective Remarks No chest pain, still with some shortness of breath Objective Medications Current Medications Medications (Trade) Dose Ordered Sig/Marty Route Start Time Stop Time Status Last Admin (Zithromax Inj/ NS 250 ml Inj) 250 ml @ 250 mls/hr Q24H IV 01/05/17 06:00 01/06/17 05:20 (Mucinex Er) 600 mg BID PO 01/04/17 09:00 01/06/17 08:30 (SoluMEDROL INJ) 40 mg Q6HR IV PUSH 01/04/17 06:00 01/06/17 05:20 (NS Flush) 2 ml UNSCH PRN FLUSH 01/04/17 04:15 (NS Flush) 2 ml BID FLUSH 01/04/17 09:00 01/06/17 08:31 (Zofran Inj) 4 mg Q6H PRN IVP 01/04/17 04:15 (Dulcolax Supp) 10 mg DAILY PRN [place] 01/04/17 04:15 (Tylenol) 650 mg Q6H PRN PO 01/04/17 04:15 ([place] 5-325 Mg) 1 tab Q4H PRN PO 01/04/17 04:15 01/06/17 08:31 (Morphine Inj) 2 mg Q3H PRN IV 01/04/17 04:15 01/06/17 08:31 (Ecotrin Ec) 81 mg DAILY PO 01/04/17 09:00 01/06/17 08:30 (Symbicort 160-4.5 Inh) 2 puff Q12HR INH 01/04/17 09:00 01/06/17 08:31 (Toprol Xl) 50 mg DAILY PO 01/04/17 09:00 01/06/17 08:30 (Flomax) 0.4 mg HS PO 01/04/17 21:00 01/04/17 21:36 (Desyrel) 200 mg HS PO 01/04/17 21:00 01/05/17 21:23 Pravastatin Sodium 80 mg 80 mg HS PO 01/04/17 21:00 01/04/17 21:36 (Rocephin Inj/NS Inj) 100 ml @ 200 mls/hr Q12H IV 01/04/17 14:00 01/05/17 23:37 Nitroglycerin 0.4 mg 0.4 mg Q5M PRN SL 01/04/17 14:15 01/04/17 14:17 (NS 1000 ml Inj) 1,000 ml @ 100 mls/hr Q10H IV 01/04/17 15:45 01/06/17 05:21 (Lovenox Inj) 70 mg Q12H SQ 01/04/17 16:00 01/06/17 05:20 (Effexor Xr) 37.5 mg DAILY PO 01/05/17 21:15 01/05/17 21:23 Vital Signs / I&O Vital Signs Date Time Temp Pulse Resp B/P Pulse Ox O2 Delivery O2 Flow Rate FiO2 01/06/17 08:00 71 01/06/17 07:16 93 Nasal Cannula 3.00 01/06/17 06:00 72 01/06/17 04:00 97.5 86 22 110/82 94 01/06/17 04:00 71 01/06/17 03:00 73 01/06/17 00:00 97.2 65 22 146/68 94 01/06/17 00:00 65 01/05/17 22:00 71 01/05/17 20:29 93 Nasal Cannula 3.00 01/05/17 20:00 74 01/05/17 20:00 98.1 74 24 143/68 94 01/05/17 18:00 74 01/05/17 16:19 98.3 72 20 124/58 94 01/05/17 16:00 71 01/05/17 14:00 74 01/05/17 12:45 20 01/05/17 12:00 88 01/05/17 12:00 98.0 76 20 132/68 95 01/05/17 10:00 74 I/O 01/05/17 01/05/17 01/05/17 01/06/17 01/06/17 01/06/17 07:00 15:00 23:00 07:00 15:00 23:00 Intake Total 1255 ml 2622 ml 1382 ml Output Total 650 ml 950 ml 400 ml Balance 605 ml 1672 ml 982 ml Intake Oral 0 ml 900 ml 750 ml IV Total 1255 ml 1722 ml 632 ml Output Urine Total 650 ml 950 ml 400 ml Stool Total 0 ml 0 ml Physical Exam GENERAL: NAD, AAOx3 SKIN: Warm and dry. HEAD: Atraumatic. Normocephalic. EYES: Pupils equal and round. No scleral icterus. No injection or drainage. ENT: No nasal bleeding or discharge. Mucous membranes pink and moist. NECK: Trachea midline. No JVD. CARDIOVASCULAR: Regular rate and rhythm. No murmurs noted RESPIRATORY: No accessory muscle use. Decreased breath sounds bilaterally, no active wheezing GASTROINTESTINAL: Abdomen soft, non-tender, nondistended. Hepatic and splenic margins not palpable. MUSCULOSKELETAL: Extremities without clubbing, cyanosis, or edema. No obvious deformities. NEUROLOGICAL: Awake and alert. No obvious cranial nerve deficits. Motor grossly within normal limits. Five out of 5 muscle strength in the arms and legs. Normal speech. PSYCHIATRIC: Appropriate mood and affect; insight and judgment normal. Laboratory Laboratory Tests Test 01/04/17 01/04/17 01/04/17 01/04/17 01:56 03:30 05:40 06:44 White Blood Count 10.6 TH/MM3 (4.0-11.0) Red Blood Count 5.81 MIL/MM3 (4.50-5.90) Hemoglobin 17.7 GM/DL (13.0-17.0) Hematocrit 52.8 % (39.0-51.0) Mean Corpuscular Volume 90.9 FL (80.0-100.0) Mean Corpuscular Hemoglobin 30.4 PG (27.0-34.0) Mean Corpuscular Hemoglobin 33.4 % Concent (32.0-36.0) Red Cell Distribution Width 13.5 % (11.6-17.2) Platelet Count 144 TH/MM3 (150-450) Mean Platelet Volume 7.1 FL (7.0-11.0) Neutrophils (%) (Auto) 90.3 % (16.0-70.0) Lymphocytes (%) (Auto) 5.4 % (9.0-44.0) Monocytes (%) (Auto) 3.7 % (0.0-8.0) Eosinophils (%) (Auto) 0.3 % (0.0-4.0) Basophils (%) (Auto) 0.3 % (0.0-2.0) Neutrophils # (Auto) 9.6 TH/MM3 (1.8-7.7) Lymphocytes # (Auto) 0.6 TH/MM3 (1.0-4.8) Monocytes # (Auto) 0.4 TH/MM3 (0-0.9) Eosinophils # (Auto) 0.0 TH/MM3 (0-0.4) Basophils # (Auto) 0.0 TH/MM3 (0-0.2) CBC Comment AUTO DIFF Differential Comment AUTO DIFF CONFIRMED Platelet Estimate NORMAL (NORMAL) Platelet Morphology Comment NORMAL (NORMAL) Prothrombin Time 11.9 SEC (9.8-11.6) Prothromb Time International 1.1 RATIO Ratio Activated Partial 28.8 SEC Thromboplast Time (24.3-30.1) Sodium Level 139 MEQ/L (136-145) Potassium Level 3.9 MEQ/L (3.5-5.1) Chloride Level 103 MEQ/L (98-107) Carbon Dioxide Level 25.7 MEQ/L (21.0-32.0) Anion Gap 10 MEQ/L (5-15) Blood Urea Nitrogen 13 MG/DL (7-18) Creatinine 1.30 MG/DL (0.60-1.30) Estimat Glomerular Filtration 54 ML/MIN (>89) Rate Random Glucose 108 MG/DL (74-106) Calcium Level 8.7 MG/DL (8.5-10.1) Magnesium Level 1.8 MG/DL (1.5-2.5) Total Bilirubin 1.7 MG/DL (0.2-1.0) Aspartate Amino Transf 27 U/L (15-37) (AST/SGOT) Alanine Aminotransferase 27 U/L (12-78) (ALT/SGPT) Alkaline Phosphatase 96 U/L (45-117) Total Creatine Kinase 582 U/L (39-308) Creatine Kinase MB 1.1 NG/ML (0.5-3.6) Creatine Kinase MB % 0.2 % (0.0-4.0) Troponin I 0.06 NG/ML (0.02-0.05) B-Type Natriuretic Peptide 34 PG/ML (0-100) Total Protein 8.4 GM/DL (6.4-8.2) Albumin 4.3 GM/DL (3.4-5.0) Lactic Acid Level 2.2 mmol/L 2.9 mmol/L (0.4-2.0) (0.4-2.0) Urine Collection Type VOIDED Urine Color YELLOW (YELLW/STRAW) Urine Turbidity CLEAR (CLEAR) Urine pH 6.0 (5.0-8.5) Urine Specific [place] 1.018 (1.002-1.035) Urine Protein 30 mg/dL (NEG-TRACE) Urine Glucose (UA) NEG mg/dL (NEG) Urine Ketones 15 mg/dL (NEG) Urine Occult Blood TRACE (NEG) Urine Nitrite NEG (NEG) Urine Bilirubin NEG (NEG) Urine Leukocyte Esterase NEG (NEG) Urine WBC 0-2 /hpf (0-5) Urine Squamous Epithelial 0-5 /hpf (0-5) Cells Urine Bacteria RARE /hpf (NONE) Urine Mucus FEW /lpf (OCC) Microscopic Urinalysis Comment CULT NOT INDICATED Test 01/04/17 01/04/17 01/04/17 01/04/17 10:35 14:07 16:05 21:30 Troponin I 0.42 NG/ML 0.32 NG/ML (0.02-0.05) (0.02-0.05) Sodium Level 145 MEQ/L (136-145) Potassium Level 3.2 MEQ/L (3.5-5.1) Chloride Level 114 MEQ/L (98-107) Carbon Dioxide Level 18.5 MEQ/L (21.0-32.0) Anion Gap 13 MEQ/L (5-15) Blood Urea Nitrogen 12 MG/DL (7-18) Creatinine 1.10 MG/DL (0.60-1.30) Estimat Glomerular Filtration 66 ML/MIN (>89) Rate Random Glucose 190 MG/DL (74-106) Calcium Level 7.6 MG/DL (8.5-10.1) Total Creatine Kinase 915 U/L (39-308) Creatine Kinase MB 3.9 NG/ML (0.5-3.6) Creatine Kinase MB % 0.4 % (0.0-4.0) Lactic Acid Level 2.7 mmol/L (0.4-2.0) Nasal Screen MRSA (PCR) NEGATIVE (NEGATIVE) Test 01/04/17 01/05/17 23:34 05:39 Total Creatine Kinase 1559 U/L 1825 U/L (39-308) (39-308) Creatine Kinase MB 7.7 NG/ML 12.0 NG/ML (0.5-3.6) (0.5-3.6) Creatine Kinase MB % 0.5 % (0.0-4.0) 0.7 % (0.0-4.0) Troponin I 0.18 NG/ML 0.17 NG/ML (0.02-0.05) (0.02-0.05) White Blood Count 12.3 TH/MM3 (4.0-11.0) Red Blood Count 4.25 MIL/MM3 (4.50-5.90) Hemoglobin 13.0 GM/DL (13.0-17.0) Hematocrit 38.2 % (39.0-51.0) Mean Corpuscular Volume 89.9 FL (80.0-100.0) Mean Corpuscular Hemoglobin 30.7 PG (27.0-34.0) Mean Corpuscular Hemoglobin 34.1 % Concent (32.0-36.0) Red Cell Distribution Width 13.9 % (11.6-17.2) Platelet Count 131 TH/MM3 (150-450) Mean Platelet Volume 7.1 FL (7.0-11.0) Neutrophils (%) (Auto) 94.8 % (16.0-70.0) Lymphocytes (%) (Auto) 2.6 % (9.0-44.0) Monocytes (%) (Auto) 2.5 % (0.0-8.0) Eosinophils (%) (Auto) 0.0 % (0.0-4.0) Basophils (%) (Auto) 0.1 % (0.0-2.0) Neutrophils # (Auto) 11.6 TH/MM3 (1.8-7.7) Lymphocytes # (Auto) 0.3 TH/MM3 (1.0-4.8) Monocytes # (Auto) 0.3 TH/MM3 (0-0.9) Eosinophils # (Auto) 0.0 TH/MM3 (0-0.4) Basophils # (Auto) 0.0 TH/MM3 (0-0.2) CBC Comment DIFF FINAL Differential Comment Sodium Level 148 MEQ/L (136-145) Potassium Level 3.5 MEQ/L (3.5-5.1) Chloride Level 117 MEQ/L (98-107) Carbon Dioxide Level 19.7 MEQ/L (21.0-32.0) Anion Gap 11 MEQ/L (5-15) Blood Urea Nitrogen 11 MG/DL (7-18) Creatinine 0.80 MG/DL (0.60-1.30) Estimat Glomerular Filtration 95 ML/MIN (>89) Rate Random Glucose 135 MG/DL (74-106) Calcium Level 7.6 MG/DL (8.5-10.1) Total Bilirubin 0.3 MG/DL (0.2-1.0) Aspartate Amino Transf 38 U/L (15-37) (AST/SGOT) Alanine Aminotransferase 23 U/L (12-78) (ALT/SGPT) Alkaline Phosphatase 54 U/L (45-117) Total Protein 5.7 GM/DL (6.4-8.2) Albumin 2.9 GM/DL (3.4-5.0) Assessment and Plan Problem List: (1) Pneumonia (2) COPD (chronic obstructive pulmonary disease) (3) Sepsis (4) Elevated troponin (5) Rhabdomyolysis (6) Chronic obstructive pulmonary disease with acute exacerbation (7) Hypertension (8) Hyperlipidemia Assessment and Plan 1) Atypical chest pain, mild elevation of trop with quick drop off possible Type 2 in nature... will plan on pharmacologic nuclear stress testing in the morning 2) Continue medical management with ASA/Statin... BB avoided with acute COPD 3) EF 50-55% Problem Qualifiers (1) Pneumonia: Qualified Code: J18.1 - Pneumonia of right lower lobe due to infectious organism (2) Sepsis: Qualified Code: A41.9 - Sepsis, due to unspecified organism Juan A Castano DO Jan 06, 2017 08:46
--- NOTE | 2017-01-06 08:56 | HHI.PR ---
Subjective Remarks Patient seen in follow-up for acute respiratory failure, right lower lobe pneumonia, lactic acidosis, elevated troponins and rhabdomyolysis. Patient reports that he still having a hard time breathing. However reports improvement compared to yesterday. He denies chest pain. Objective Vitals Vital Signs Date Time Temp Pulse Resp B/P Pulse Ox O2 Delivery O2 Flow Rate FiO2 01/06/17 08:00 71 01/06/17 07:16 93 Nasal Cannula 3.00 01/06/17 06:00 72 01/06/17 04:00 97.5 86 22 110/82 94 01/06/17 04:00 71 01/06/17 03:00 73 01/06/17 00:00 97.2 65 22 146/68 94 01/06/17 00:00 65 01/05/17 22:00 71 01/05/17 20:29 93 Nasal Cannula 3.00 01/05/17 20:00 74 01/05/17 20:00 98.1 74 24 143/68 94 01/05/17 18:00 74 01/05/17 16:19 98.3 72 20 124/58 94 01/05/17 16:00 71 01/05/17 14:00 74 01/05/17 12:45 20 01/05/17 12:00 88 01/05/17 12:00 98.0 76 20 132/68 95 01/05/17 10:00 74 I/O 01/05/17 01/05/17 01/05/17 01/06/17 01/06/17 01/06/17 07:00 15:00 23:00 07:00 15:00 23:00 Intake Total 1255 ml 2622 ml 1382 ml Output Total 650 ml 950 ml 400 ml Balance 605 ml 1672 ml 982 ml Intake Oral 0 ml 900 ml 750 ml IV Total 1255 ml 1722 ml 632 ml Output Urine Total 650 ml 950 ml 400 ml Stool Total 0 ml 0 ml Result Diagram: 01/05/17 0539 01/05/17 0539 Imaging Last Impressions Chest X-Ray 01/04/17 0139 Signed Impressions: Service Date/Time: Wednesday, January 04, 2017 02:03 - CONCLUSION: Probable consolidative infiltrate in the medial right lower lung. Sreekanth Vital MD Objective Remarks GENERAL: Elderly male in no acute distress. CARDIOVASCULAR: Normal rate and regular rhythm without murmurs, gallops, or rubs. RESPIRATORY: Air movement is fair. There is diffuse bilateral rhonchi. No wheezing. GASTROINTESTINAL: Abdomen soft, non-tender, non-distended. Normal active bowel sounds MUSCULOSKELETAL: Extremities without cyanosis, or edema. NEURO: Alert & Oriented x4 to person, place, time, situation. Moves all ext x4 PSYCH: Appropriate mood and affect. A/P Problem List: (1) Pneumonia ICD Code: J18.9 Status: Acute (2) COPD (chronic obstructive pulmonary disease) ICD Code: J44.9 Status: Chronic (3) Rhabdomyolysis ICD Code: M62.82 Status: Acute (4) Elevated troponin I level ICD Code: R74.8 Status: Acute Assessment and Plan 71-year-old male with: Acute respiratory failure secondary to pneumonia: Improving - Continue supplemental oxygen. - Continue Rocephin and azithromycin - Continue Solu-Medrol. Plan to transition to oral prednisone tomorrow. Right lower lobe pneumonia: Antibiotics as above. Elevated troponins: Appreciate cardiology following. Continue full dose Lovenox per cardiology with plans for further ischemic workup when more stable. 2-D echo report reviewed and is unremarkable. Hypernatremia: Follow-up labs. Discontinue IV fluid. Rhabdomyolysis: Total CK is more elevated today. Hold statin. Follow-up level in a.m. GI prophylaxis: Stool softener PRN constipation. DVT PPx: Lovenox Discharge Planning Stable. Okay to transfer to floor today. Problem Qualifiers (1) Pneumonia: Qualified Code: J18.1 - Pneumonia of right lower lobe due to infectious organism Patrick Rey MD Jan 06, 2017 08:56
[2017-01-06 10:28] LABS: AUTOMATED NEUTROPHIL # 11.6 TH/MM3 (1.8-7.7); BASOPHIL % 0.2 % (0.0-2.0); EOSINOPHIL % 0.1 % (0.0-4.0); HEMATOCRIT 38.3 % (39.0-51.0); LYMPH % 2.1 % (9.0-44.0); LYMPHOCYTE # 0.3 TH/MM3 (1.0-4.8); MEAN CORPUSCULAR HEMOGLOBIN 30.9 PG (27.0-34.0); MEAN CORPUSCULAR HGB CONC 34.4 % (32.0-36.0); MONO % 2.2 % (0.0-8.0); NEUT % 95.4 % (16.0-70.0); PLATELET COUNT 161 TH/MM3 (150-450); RED BLOOD COUNT 4.25 MIL/MM3 (4.50-5.90); RED CELL DISTRIBUTION WIDTH 14.1 % (11.6-17.2); WHITE BLOOD COUNT 12.2 TH/MM3 (4.0-11.0)
[2017-01-06 10:30] LABS: HEMO FLAGS AUTO DIFF
[2017-01-06 11:07] LABS: CALCIUM-PROTEIN CORRECTED 8.2 MG/DL (8.5-10.1)
[2017-01-06 11:19] LABS: BANDS 6 % (0-6); MYELOCYTES 1 % (0-0); NEUTROPHIL # MANUAL DIFF 11.8 TH/MM3 (1.8-7.7); PLATELET ESTIMATE SMEAR NORMAL (NORMAL); PLATELET MORPHOLOGY NORMAL (NORMAL); POLYS (SEG NEUTROPHILS) 90 % (16-70); SCAN/DIFF FINAL DIFF MANUAL; WBC DIFF SAMPLE 100
[2017-01-06] MEDS: cefTRIAXone INJ 1,000 MG in SODIUM CHLORIDE 0.9% INJ 100 ML IV SCH (14:00)
[2017-01-06] MEDS ORDERED: POTASSIUM CHLORIDE 10 MEQ CONTROLLED RELEASE TAB PO ONE (18:00)
[2017-01-06] MEDS: TAMSULOSIN HCL 0.4 MG CAP PO SCH (20:57)
[2017-01-06] MEDS: traZODone HCL 100 MG TAB PO SCH (20:57)
[2017-01-07] VITALS (14 sets, daily range): BP systolic 117–165; BP diastolic 56–96; PULSE 52–84; RESP 15–20; TEMP 97.6–98.5; O2SAT 90–97
[2017-01-07] MEDS: methylPREDNISolone SOD SUCC 40 MG/1 ML VIAL IV PUSH SCH ×3 (01:35→15:27)
[2017-01-07] MEDS: cefTRIAXone INJ 1,000 MG in SODIUM CHLORIDE 0.9% INJ 100 ML IV SCH ×2 (01:35→15:27)
[2017-01-07] MEDS: ENOXAPARIN SODIUM 80 MG/0.8 ML SYRINGE SQ SCH ×2 (03:50→15:26)
[2017-01-07] MEDS: MORPHINE SULFATE 4 MG/ML INJ IV PRN ×2 (03:51→15:27)
[2017-01-07] MEDS: AZITHROMYCIN INJ 500 MG in SODIUM CHLOR 0.9% 250 ML INJ 250 ML IV SCH (04:19)
[2017-01-07 05:53] LABS: MEAN CELL VOLUME 88.9 FL (80.0-100.0); MEAN CORPUSCULAR HEMOGLOBIN 30.4 PG (27.0-34.0); MEAN CORPUSCULAR HGB CONC 34.2 % (32.0-36.0); PLATELET COUNT 162 TH/MM3 (150-450); RED BLOOD COUNT 4.62 MIL/MM3 (4.50-5.90); RED CELL DISTRIBUTION WIDTH 13.7 % (11.6-17.2); REVIEW FLAG FINAL; WHITE BLOOD COUNT 12.9 TH/MM3 (4.0-11.0)
[2017-01-07 06:06] LABS: BICARBONATE 24.9 MEQ/L (21.0-32.0); POTASSIUM 3.6 MEQ/L (3.5-5.1)
[2017-01-07] MEDS: RESP: ALBUTEROL 2.5 MG/IPRATROPIUM 0.5 MG NEB (SCH) NEB ×4 (07:58→20:01)
[2017-01-07] MEDS: ASPIRIN EC 81 MG TABEC PO SCH (08:16)
[2017-01-07] MEDS: guaiFENesin E.R. 600 MG TAB PO SCH ×2 (08:16→21:31)
[2017-01-07] MEDS: SODIUM CHLORIDE 0.9% FLUSH 5 ML FLUSH FLUSH SCH ×2 (08:16→21:32)
[2017-01-07] MEDS: METOPROLOL SUCCINATE 50 MG EXTENDED RELEASE TAB PO SCH (08:16)
[2017-01-07] MEDS: BUDESONIDE-FORMOTEROL 160/4.5 MCG INHALER INH SCH ×2 (08:25→21:32)
--- NOTE | 2017-01-07 10:02 | PD.CARD.PN ---
Subjective Subjective Remarks No chest pain, shortness of breath somewhat better Objective Medications Current Medications Medications (Trade) Dose Ordered Sig/Marty Route Start Time Stop Time Status Last Admin (Zithromax Inj/ NS 250 ml Inj) 250 ml @ 250 mls/hr Q24H IV 01/05/17 06:00 01/07/17 04:19 (Mucinex Er) 600 mg BID PO 01/04/17 09:00 01/07/17 08:16 (SoluMEDROL INJ) 40 mg Q6HR IV PUSH 01/04/17 06:00 01/07/17 04:19 (NS Flush) 2 ml UNSCH PRN FLUSH 01/04/17 04:15 (NS Flush) 2 ml BID FLUSH 01/04/17 09:00 01/07/17 08:16 (Zofran Inj) 4 mg Q6H PRN IVP 01/04/17 04:15 (Dulcolax Supp) 10 mg DAILY PRN ID 01/04/17 04:15 (Tylenol) 650 mg Q6H PRN PO 01/04/17 04:15 (Avalon 5-325 Mg) 1 tab Q4H PRN PO 01/04/17 04:15 01/06/17 13:29 (Morphine Inj) 2 mg Q3H PRN IV 01/04/17 04:15 01/07/17 03:51 (Ecotrin Ec) 81 mg DAILY PO 01/04/17 09:00 01/07/17 08:16 (Symbicort 160-4.5 Inh) 2 puff Q12HR INH 01/04/17 09:00 01/07/17 08:25 (Toprol Xl) 50 mg DAILY PO 01/04/17 09:00 01/07/17 08:16 (Flomax) 0.4 mg HS PO 01/04/17 21:00 01/04/17 21:36 (Desyrel) 200 mg HS PO 01/04/17 21:00 01/06/17 20:57 Pravastatin Sodium 80 mg 80 mg HS PO 01/04/17 21:00 Hold 01/04/17 21:36 (Rocephin Inj/NS Inj) 100 ml @ 200 mls/hr Q12H IV 01/04/17 14:00 01/07/17 01:35 (Nitrostat Sl) 0.4 mg Q5M PRN SL 01/04/17 14:15 01/04/17 14:17 (Lovenox Inj) 70 mg Q12H SQ 01/04/17 16:00 01/07/17 03:50 (Effexor Xr) 37.5 mg DAILY PO 01/05/17 21:15 01/06/17 20:59 Vital Signs / I&O Vital Signs Date Time Temp Pulse Resp B/P Pulse Ox O2 Delivery O2 Flow Rate FiO2 01/07/17 07:58 92 Nasal Cannula 2.00 01/07/17 06:00 56 01/07/17 04:00 98.5 62 18 149/71 91 01/07/17 04:00 62 01/07/17 02:00 58 01/07/17 00:00 98.4 72 20 117/56 95 01/07/17 00:00 80 01/06/17 22:00 64 01/06/17 21:59 64 01/06/17 20:50 93 Nasal Cannula 2.00 01/06/17 20:00 98.1 76 20 170/81 98 01/06/17 20:00 76 01/06/17 18:00 72 01/06/17 16:00 73 01/06/17 16:00 97.2 65 22 170/80 94 01/06/17 14:18 20 01/06/17 14:00 72 01/06/17 13:34 20 01/06/17 12:00 71 01/06/17 12:00 98.7 63 22 118/59 95 01/06/17 10:00 72 I/O 01/06/17 01/06/17 01/06/17 01/07/17 01/07/17 01/07/17 07:00 15:00 23:00 07:00 15:00 23:00 Intake Total 1382 ml 1040 ml 375 ml Output Total 400 ml 750 ml 400 ml Balance 982 ml 290 ml -25 ml Intake Oral 750 ml 840 ml IV Total 632 ml 200 ml 375 ml Output Urine Total 400 ml 750 ml 400 ml Stool Total 0 ml 0 ml # Voids 1 1 Physical Exam GENERAL: NAD, AAOx3 SKIN: Warm and dry. HEAD: Atraumatic. Normocephalic. EYES: Pupils equal and round. No scleral icterus. No injection or drainage. ENT: No nasal bleeding or discharge. Mucous membranes pink and moist. NECK: Trachea midline. No JVD. CARDIOVASCULAR: Regular rate and rhythm. No murmurs noted RESPIRATORY: No accessory muscle use. Decreased breath sounds bilaterally, no active wheezing GASTROINTESTINAL: Abdomen soft, non-tender, nondistended. Hepatic and splenic margins not palpable. MUSCULOSKELETAL: Extremities without clubbing, cyanosis, or edema. No obvious deformities. NEUROLOGICAL: Awake and alert. No obvious cranial nerve deficits. Motor grossly within normal limits. Five out of 5 muscle strength in the arms and legs. Normal speech. PSYCHIATRIC: Appropriate mood and affect; insight and judgment normal. Laboratory Laboratory Tests Test 01/07/17 04:45 White Blood Count 12.9 TH/MM3 Red Blood Count 4.62 MIL/MM3 Hemoglobin 14.0 GM/DL Hematocrit 41.0 % Mean Corpuscular Volume 88.9 FL Mean Corpuscular Hemoglobin 30.4 PG Mean Corpuscular Hemoglobin 34.2 % Concent Red Cell Distribution Width 13.7 % Platelet Count 162 TH/MM3 Mean Platelet Volume 7.6 FL Sodium Level 146 MEQ/L Potassium Level 3.6 MEQ/L Chloride Level 113 MEQ/L Carbon Dioxide Level 24.9 MEQ/L Anion Gap 8 MEQ/L Blood Urea Nitrogen 16 MG/DL Creatinine 0.79 MG/DL Estimat Glomerular Filtration 97 ML/MIN Rate Random Glucose 103 MG/DL Calcium Level 7.9 MG/DL Assessment and Plan Problem List: (1) Pneumonia (2) COPD (chronic obstructive pulmonary disease) (3) Sepsis (4) Elevated troponin (5) Rhabdomyolysis (6) Chronic obstructive pulmonary disease with acute exacerbation (7) Hypertension (8) Hyperlipidemia Assessment and Plan 1) Atypical chest pain, mild elevation of trop with quick drop off possible Type 2 in nature... will plan on pharmacologic nuclear stress testing today 2) Continue medical management with ASA/Statin... BB avoided with acute COPD 3) EF 50-55% Problem Qualifiers (1) Pneumonia: Qualified Code: J18.1 - Pneumonia of right lower lobe due to infectious organism (2) Sepsis: Qualified Code: A41.9 - Sepsis, due to unspecified organism Juan A Castano DO Jan 07, 2017 10:02
--- NOTE | 2017-01-07 16:24 | HHI.PR ---
Subjective Remarks Patient seen earlier this morning follow-up for acute respiratory failure, right lower lobe pneumonia, lactic acidosis, elevated troponins and rhabdomyolysis. Patient denies any chest pain. Frustrated because he is NPO for stress test. No chest pain. Shortness of breath is unchanged compared to yesterday. Objective Vitals Vital Signs Date Time Temp Pulse Resp B/P Pulse Ox O2 Delivery O2 Flow Rate FiO2 01/07/17 14:00 62 01/07/17 12:00 64 01/07/17 12:00 97.9 64 20 139/64 92 01/07/17 10:00 52 01/07/17 08:00 64 01/07/17 08:00 97.9 64 15 165/96 93 01/07/17 07:58 92 Nasal Cannula 2.00 01/07/17 06:00 56 01/07/17 04:00 98.5 62 18 149/71 91 01/07/17 04:00 62 01/07/17 02:00 58 01/07/17 00:00 98.4 72 20 117/56 95 01/07/17 00:00 80 01/06/17 22:00 64 01/06/17 21:59 64 01/06/17 20:50 93 Nasal Cannula 2.00 01/06/17 20:00 98.1 76 20 170/81 98 01/06/17 20:00 76 01/06/17 18:00 72 I/O 01/06/17 01/06/17 01/06/17 01/07/17 01/07/17 01/07/17 07:00 15:00 23:00 07:00 15:00 23:00 Intake Total 1382 ml 1040 ml 375 ml 340 ml Output Total 400 ml 750 ml 400 ml 350 ml Balance 982 ml 290 ml -25 ml -10 ml Intake Oral 750 ml 840 ml 240 ml IV Total 632 ml 200 ml 375 ml 100 ml Output Urine Total 400 ml 750 ml 400 ml 350 ml Stool Total 0 ml 0 ml 0 ml # Voids 1 1 Result Diagram: 01/07/1744401/07/17444 Objective Remarks GENERAL: Elderly male in no acute distress. CARDIOVASCULAR: Normal rate and regular rhythm without murmurs, gallops, or rubs. RESPIRATORY: Air movement is fair. There is diffuse bilateral rhonchi. No wheezing. GASTROINTESTINAL: Abdomen soft, non-tender, non-distended. Normal active bowel sounds MUSCULOSKELETAL: Extremities without cyanosis, or edema. NEURO: Alert & Oriented x4 to person, place, time, situation. Moves all ext x4 PSYCH: Appropriate mood and affect. A/P Problem List: (1) Pneumonia ICD Code: J18.9 Status: Acute (2) COPD (chronic obstructive pulmonary disease) ICD Code: J44.9 Status: Chronic (3) Rhabdomyolysis ICD Code: M62.82 Status: Acute (4) Elevated troponin I level ICD Code: R74.8 Status: Acute Assessment and Plan 71-year-old male with: Acute respiratory failure secondary to pneumonia: Improving - Continue supplemental oxygen. - Continue Rocephin and azithromycin - Transition to oral prednisone today Right lower lobe pneumonia: Antibiotics as above. Elevated troponins: Appreciate cardiology following. Continue full dose Lovenox per cardiology. Nuclear stress test pending. 2-D echo report reviewed and is unremarkable. Rhabdomyolysis: Hold statin. Follow-up levels. GI prophylaxis: Stool softener PRN constipation. DVT PPx: Lovenox Discharge Planning Stable. Okay to transfer to floor when a bed is available Problem Qualifiers (1) Pneumonia: Qualified Code: J18.1 - Pneumonia of right lower lobe due to infectious organism Patrick Rey MD Jan 07, 2017 16:24
[2017-01-07] MEDS: LORazepam 2 MG/ML VIAL IV PRN (18:49)
[2017-01-07] MEDS: traZODone HCL 100 MG TAB PO SCH (21:31)
[2017-01-07] MEDS: TAMSULOSIN HCL 0.4 MG CAP PO SCH (21:32)
[2017-01-07] MEDS: predniSONE 20 MG TAB PO SCH (21:32)
[2017-01-07 22:07] LABS: CKMB 10.2 NG/ML (0.5-3.6)
[2017-01-08] VITALS (11 sets, daily range): BP systolic 121–161; BP diastolic 57–88; PULSE 60–80; RESP 17–20; TEMP 96.5–98.1; O2SAT 91–95
[2017-01-08] MEDS: ENOXAPARIN SODIUM 80 MG/0.8 ML SYRINGE SQ SCH (04:04)
[2017-01-08] MEDS: cefTRIAXone INJ 1,000 MG in SODIUM CHLORIDE 0.9% INJ 100 ML IV SCH ×2 (04:05→14:04)
[2017-01-08] MEDS: SODIUM CHLORIDE 0.9% FLUSH 5 ML FLUSH FLUSH PRN (04:05)
[2017-01-08] MEDS: AZITHROMYCIN INJ 500 MG in SODIUM CHLOR 0.9% 250 ML INJ 250 ML IV SCH (04:45)
[2017-01-08] MEDS: RESP: ALBUTEROL 2.5 MG/IPRATROPIUM 0.5 MG NEB (SCH) NEB (07:33)
[2017-01-08] MEDS: BUDESONIDE-FORMOTEROL 160/4.5 MCG INHALER INH SCH ×2 (08:46→21:55)
[2017-01-08] MEDS: ASPIRIN EC 81 MG TABEC PO SCH (08:46)
[2017-01-08] MEDS: guaiFENesin E.R. 600 MG TAB PO SCH ×2 (08:46→21:51)
[2017-01-08] MEDS: predniSONE 20 MG TAB PO SCH ×2 (08:46→21:51)
[2017-01-08] MEDS: SODIUM CHLORIDE 0.9% FLUSH 5 ML FLUSH FLUSH SCH ×2 (08:47→21:53)
[2017-01-08] MEDS: METOPROLOL SUCCINATE 50 MG EXTENDED RELEASE TAB PO SCH (08:47)
[2017-01-08] MEDS: VENLAFAXINE HCL XR 37.5 MG CAP PO SCH (08:47)
[2017-01-08 08:52] LABS: HEMATOCRIT 41.1 % (39.0-51.0); MEAN CELL VOLUME 88.2 FL (80.0-100.0); MEAN CORPUSCULAR HEMOGLOBIN 30.7 PG (27.0-34.0); MEAN CORPUSCULAR HGB CONC 34.8 % (32.0-36.0); PLATELET COUNT 171 TH/MM3 (150-450); RED BLOOD COUNT 4.66 MIL/MM3 (4.50-5.90); RED CELL DISTRIBUTION WIDTH 13.7 % (11.6-17.2); REVIEW FLAG FINAL; WHITE BLOOD COUNT 13.3 TH/MM3 (4.0-11.0)
[2017-01-08 09:37] LABS: BICARBONATE 25.9 MEQ/L (21.0-32.0); POTASSIUM 3.6 MEQ/L (3.5-5.1)
[2017-01-08 09:53] LABS: CKMB 9.7 NG/ML (0.5-3.6)
--- NOTE | 2017-01-08 10:36 | HHI.PR ---
Subjective Remarks Patient reports feeling better overall. Some generalized weakness but denies any pain. No chest pressure or pain. SOB improved. He refused nuclear stress test for now and states he will consider it in the future. Objective Vitals Vital Signs Date Time Temp Pulse Resp B/P Pulse Ox O2 Delivery O2 Flow Rate FiO2 01/08/17 08:00 96.5 70 18 142/72 93 01/08/17 06:00 80 01/08/17 04:00 97.5 73 18 161/79 95 01/08/17 04:00 80 01/08/17 02:00 72 01/08/17 00:00 78 01/08/17 00:00 97.4 62 17 121/62 94 01/07/17 22:00 76 01/07/17 20:01 90 Nasal Cannula 2.50 01/07/17 20:00 97.6 75 19 147/80 97 01/07/17 20:00 74 01/07/17 18:00 84 01/07/17 16:00 98.0 63 20 162/77 91 01/07/17 16:00 63 01/07/17 14:00 62 01/07/17 12:00 64 01/07/17 12:00 97.9 64 20 139/64 92 I/O 01/07/17 01/07/17 01/07/17 01/08/17 01/08/17 01/08/17 07:00 15:00 23:00 07:00 15:00 23:00 Intake Total 375 ml 340 ml 460 ml 100 ml Output Total 400 ml 350 ml 450 ml Balance -25 ml -10 ml 460 ml -350 ml Intake Oral 240 ml 460 ml 100 ml IV Total 375 ml 100 ml Output Urine Total 400 ml 350 ml 450 ml Stool Total 0 ml 0 ml # Voids 1 1 Result Diagram: 01/08/1718 01/08/1718 Objective Remarks GENERAL: Elderly male in no acute distress. CARDIOVASCULAR: Normal rate and regular rhythm without murmurs, gallops, or rubs. RESPIRATORY: Air movement is fair. There is diffuse bilateral rhonchi. No wheezing. GASTROINTESTINAL: Abdomen soft, non-tender, non-distended. Normal active bowel sounds MUSCULOSKELETAL: Extremities without cyanosis, or edema. NEURO: Alert & Oriented x4 to person, place, time, situation. Moves all ext x4 PSYCH: Appropriate mood and affect. A/P Problem List: (1) Pneumonia ICD Code: J18.9 Status: Acute (2) COPD (chronic obstructive pulmonary disease) ICD Code: J44.9 Status: Chronic (3) Rhabdomyolysis ICD Code: M62.82 Status: Acute (4) Elevated troponin I level ICD Code: R74.8 Status: Acute Assessment and Plan 71-year-old male with: Acute respiratory failure secondary to pneumonia: Improving - Continue supplemental oxygen. - Continue Rocephin and azithromycin - On oral prednisone. Continue to taper. Right lower lobe pneumonia: Antibiotics as above. Elevated troponins: Appreciate cardiology following. Nuclear stress test ordered but the patient refused because he was NPO. Patient state he will consider this in the future. [facility]. Patient aware of possible complications. Change Lovenox to prophylaxis dose. 2-D echo report reviewed and is unremarkable. Rhabdomyolysis: Unclear etiology. Improving. Hold statin. Continue to follow levels. GI prophylaxis: Stool softener PRN constipation. DVT PPx: Lovenox Discharge Planning Will need SNF vs C with PT. Problem Qualifiers (1) Pneumonia: Qualified Code: J18.1 - Pneumonia of right lower lobe due to infectious organism Patrick Rey MD Jan 08, 2017 10:36
--- NOTE | 2017-01-08 10:42 | PD.CARD.PN ---
Subjective Subjective Remarks No chest pain, still with shortness of breath Objective Medications Current Medications Medications (Trade) Dose Ordered Sig/Marty Route Start Time Stop Time Status Last Admin (Zithromax Inj/ NS 250 ml Inj) 250 ml @ 250 mls/hr Q24H IV 01/05/17 06:00 01/08/17 04:45 (Mucinex Er) 600 mg BID PO 01/04/17 09:00 01/08/17 08:46 (NS Flush) 2 ml UNSCH PRN FLUSH 01/04/17 04:15 01/08/17 04:05 (NS Flush) 2 ml BID FLUSH 01/04/17 09:00 01/08/17 08:47 (Zofran Inj) 4 mg Q6H PRN IVP 01/04/17 04:15 01/08/17 06:31 (Dulcolax Supp) 10 mg DAILY PRN [place] 01/04/17 04:15 (Tylenol) 650 mg Q6H PRN PO 01/04/17 04:15 (L[place]lan 5-325 Mg) 1 tab Q4H PRN PO 01/04/17 04:15 01/06/17 13:29 (Morphine Inj) 2 mg Q3H PRN IV 01/04/17 04:15 01/07/17 15:27 (Ecotrin Ec) 81 mg DAILY PO 01/04/17 09:00 01/08/17 08:46 (Symbicort 160-4.5 Inh) 2 puff Q12HR INH 01/04/17 09:00 01/08/17 08:46 (Toprol Xl) 50 mg DAILY PO 01/04/17 09:00 01/08/17 08:47 (Flomax) 0.4 mg HS PO 01/04/17 21:00 01/07/17 21:32 (Desyrel) 200 mg HS PO 01/04/17 21:00 01/07/17 21:31 Pravastatin Sodium 80 mg 80 mg HS PO 01/04/17 21:00 Hold 01/04/17 21:36 (Rocephin Inj/NS Inj) 100 ml @ 200 mls/hr Q12H IV 01/04/17 14:00 01/08/17 04:05 (Nitrostat Sl) 0.4 mg Q5M PRN SL 01/04/17 14:15 01/04/17 14:17 (Lovenox Inj) 70 mg Q12H SQ 01/04/17 16:00 01/08/17 04:04 (Effexor Xr) 37.5 mg DAILY PO 01/05/17 21:15 01/06/17 20:59 (Deltasone) 20 mg BID PO 01/07/17 21:00 01/08/17 08:46 (Ativan Inj) 1 mg Q6H PRN IV 01/07/17 18:45 01/07/17 18:49 Vital Signs / I&O Vital Signs Date Time Temp Pulse Resp B/P Pulse Ox O2 Delivery O2 Flow Rate FiO2 01/08/17 08:00 96.5 70 18 142/72 93 01/08/17 06:00 80 01/08/17 04:00 97.5 73 18 161/79 95 01/08/17 04:00 80 01/08/17 02:00 72 01/08/17 00:00 78 01/08/17 00:00 97.4 62 17 121/62 94 01/07/17 22:00 76 01/07/17 20:01 90 Nasal Cannula 2.50 01/07/17 20:00 97.6 75 19 147/80 97 01/07/17 20:00 74 01/07/17 18:00 84 01/07/17 16:00 98.0 63 20 162/77 91 01/07/17 16:00 63 01/07/17 14:00 62 01/07/17 12:00 64 01/07/17 12:00 97.9 64 20 139/64 92 I/O 01/07/17 01/07/17 01/07/17 01/08/17 01/08/17 01/08/17 07:00 15:00 23:00 07:00 15:00 23:00 Intake Total 375 ml 340 ml 460 ml 100 ml Output Total 400 ml 350 ml 450 ml Balance -25 ml -10 ml 460 ml -350 ml Intake Oral 240 ml 460 ml 100 ml IV Total 375 ml 100 ml Output Urine Total 400 ml 350 ml 450 ml Stool Total 0 ml 0 ml # Voids 1 1 Physical Exam GENERAL: NAD, AAOx3 SKIN: Warm and dry. HEAD: Atraumatic. Normocephalic. EYES: Pupils equal and round. No scleral icterus. No injection or drainage. ENT: No nasal bleeding or discharge. Mucous membranes pink and moist. NECK: Trachea midline. No JVD. CARDIOVASCULAR: Regular rate and rhythm. No murmurs noted RESPIRATORY: No accessory muscle use. Decreased breath sounds bilaterally, no active wheezing GASTROINTESTINAL: Abdomen soft, non-tender, nondistended. Hepatic and splenic margins not palpable. MUSCULOSKELETAL: Extremities without clubbing, cyanosis, or edema. No obvious deformities. NEUROLOGICAL: Awake and alert. No obvious cranial nerve deficits. Motor grossly within normal limits. Five out of 5 muscle strength in the arms and legs. Normal speech. PSYCHIATRIC: Appropriate mood and affect; insight and judgment normal. Laboratory Laboratory Tests Test 01/08/17 08:18 White Blood Count 13.3 TH/MM3 Red Blood Count 4.66 MIL/MM3 Hemoglobin 14.3 GM/DL Hematocrit 41.1 % Mean Corpuscular Volume 88.2 FL Mean Corpuscular Hemoglobin 30.7 PG Mean Corpuscular Hemoglobin 34.8 % Concent Red Cell Distribution Width 13.7 % Platelet Count 171 TH/MM3 Mean Platelet Volume 7.2 FL Sodium Level 142 MEQ/L Potassium Level 3.6 MEQ/L Chloride Level 107 MEQ/L Carbon Dioxide Level 25.9 MEQ/L Anion Gap 9 MEQ/L Blood Urea Nitrogen 15 MG/DL Creatinine 0.81 MG/DL Estimat Glomerular Filtration 94 ML/MIN Rate Random Glucose 103 MG/DL Calcium Level 8.0 MG/DL Total Creatine Kinase 1098 U/L Creatine Kinase MB 9.7 NG/ML Creatine Kinase MB % 0.9 % Assessment and Plan Problem List: (1) Pneumonia (2) COPD (chronic obstructive pulmonary disease) (3) Sepsis (4) Elevated troponin (5) Rhabdomyolysis (6) Chronic obstructive pulmonary disease with acute exacerbation (7) Hypertension (8) Hyperlipidemia Assessment and Plan 1) Atypical chest pain, mild elevation of trop with quick drop off possible Type 2 in nature also with mild rhabdomyolysis, offered ischemic evaluation, but at this time does not want further evaluation 2) Continue medical management with ASA/Statin... BB avoided with acute COPD 3) EF 50-55% 4) Rhabdomyolysis, question of atypical PNAs? possible Mycoplasma PNA? consider further evaluation? Problem Qualifiers (1) Pneumonia: Qualified Code: J18.1 - Pneumonia of right lower lobe due to infectious organism (2) Sepsis: Qualified Code: A41.9 - Sepsis, due to unspecified organism Juan A Castano DO Jan 08, 2017 10:42
[2017-01-08] MEDS: LORazepam 2 MG/ML VIAL IV PRN (14:03)
[2017-01-08] MEDS: RESP: ALBUTEROL 2.5 MG/IPRATROPIUM 0.5 MG NEB (PRN) NEB ×2 (14:42→19:46)
[2017-01-08] MEDS ORDERED: VENLAFAXINE HCL XR 37.5 MG CAP PO SCH (21:00)
[2017-01-08] MEDS: TAMSULOSIN HCL 0.4 MG CAP PO SCH (21:52)
[2017-01-08] MEDS: traZODone HCL 100 MG TAB PO SCH (21:53)
[2017-01-09] VITALS: BP 126/68; PULSE 55; PULSE 57; RESP 20; TEMP 97.7; O2SAT 93
[2017-01-09 02:00] VITALS: PULSE 60
[2017-01-09] MEDS: SODIUM CHLORIDE 0.9% FLUSH 5 ML FLUSH FLUSH PRN (03:17)
[2017-01-09] MEDS: cefTRIAXone INJ 1,000 MG in SODIUM CHLORIDE 0.9% INJ 100 ML IV SCH ×2 (03:17→13:27)
[2017-01-09 04:00] VITALS: BP 174/85; PULSE 65; RESP 20; TEMP 97.6; O2SAT 95
[2017-01-09] MEDS: AZITHROMYCIN INJ 500 MG in SODIUM CHLOR 0.9% 250 ML INJ 250 ML IV SCH (05:57)
[2017-01-09 06:29] LABS: BICARBONATE 28.1 MEQ/L (21.0-32.0); POTASSIUM 3.7 MEQ/L (3.5-5.1)
[2017-01-09 07:43] VITALS: O2SAT 93
[2017-01-09] MEDS: RESP: ALBUTEROL 2.5 MG/IPRATROPIUM 0.5 MG NEB (PRN) NEB (07:43)
[2017-01-09 08:00] VITALS: BP 182/94; PULSE 60; PULSE 69; RESP 20; TEMP 97.5; O2SAT 94
[2017-01-09] MEDS: SODIUM CHLORIDE 0.9% FLUSH 5 ML FLUSH FLUSH SCH (08:55)
[2017-01-09] MEDS: predniSONE 20 MG TAB PO SCH (08:55)
[2017-01-09] MEDS: BUDESONIDE-FORMOTEROL 160/4.5 MCG INHALER INH SCH (08:55)
[2017-01-09] MEDS: guaiFENesin E.R. 600 MG TAB PO SCH (08:55)
[2017-01-09] MEDS: METOPROLOL SUCCINATE 50 MG EXTENDED RELEASE TAB PO SCH (08:56)
[2017-01-09] MEDS: ASPIRIN EC 81 MG TABEC PO SCH (08:56)
[2017-01-09] MEDS ORDERED: CEFT500T3 PO ×3 (09:32→09:43)
[2017-01-09] MEDS ORDERED: LORA-474 PO ×3 (09:32→09:43)
--- NOTE | 2017-01-09 09:33 | HHI.DS ---
Discharge Summary Admission Date Jan 04, 2017 at 04:13 Discharge Date: Jan 09, 2017 Admitting Diagnosis pneumonia; sirs; exacerbation COPD;elevated troponin I (1) Pneumonia ICD Code: J18.9 (2) COPD (chronic obstructive pulmonary disease) ICD Code: J44.9 (3) Rhabdomyolysis ICD Code: M62.82 (4) Elevated troponin I level ICD Code: R74.8 (5) Physical deconditioning ICD Code: R53.81 Procedures None Brief History - From Admission This patient is a very pleasant 71-year-old gentleman who was in reasonable state of health until the last 3 days. The patient had come to the emergency room complaining of this and was found to have bilateral pneumonia with evidence of sepsis. Chest x-ray on my evaluation does show right lower lobe pneumonia He was admitted and given IV antibiotics. Patient also found to have acute kidney injury, rhabdomyolysis. Suddenly he began complaining of chest pain and tightness for 2 hours and had abnormal EKG on my evaluation and elevated cardiac enzymes. Patient says this chest discomfort, improved with nitroglycerin. He has not eaten in several days because he has felt ill. He has had a strong family history of cardiac disease including his mother and his brother having had cardiac events and his mother dying of cardiac heart failure. The patient does have signs and symptoms of sepsis and COPD underlying and has been therefore admitted for further treatment and evaluation of pneumonia and sepsis with elevated troponin. CBC/BMP: 01/08/17 0818 01/09/17 0446 Significant Findings Laboratory Tests Test 01/06/17 01/07/17 01/08/17 01/09/17 09:58 04:45 08:18 04:46 White Blood Count 12.2 TH/MM3 12.9 TH/MM3 13.3 TH/MM3 (4.0-11.0) (4.0-11.0) (4.0-11.0) Red Blood Count 4.25 MIL/MM3 (4.50-5.90) Hematocrit 38.3 % (39.0-51.0) Neutrophils (%) (Auto) 95.4 % (16.0-70.0) Lymphocytes (%) (Auto) 2.1 % (9.0-44.0) Neutrophils # (Auto) 11.6 TH/MM3 (1.8-7.7) Lymphocytes # (Auto) 0.3 TH/MM3 (1.0-4.8) Neutrophils % (Manual) 90 % (16-70) Lymphocytes % 2 % (9-44) Neutrophils # (Manual) 11.8 TH/MM3 (1.8-7.7) Myelocytes 1 % (0-0) Potassium Level 3.0 MEQ/L (3.5-5.1) Chloride Level 113 MEQ/L 113 MEQ/L (98-107) (98-107) Estimat Glomerular Filtration 77 ML/MIN (>89) 85 ML/MIN (>89) Rate Random Glucose 174 MG/DL (74-106) Calcium Level 7.3 MG/DL 7.9 MG/DL 8.0 MG/DL 8.2 MG/DL (8.5-10.1) (8.5-10.1) (8.5-10.1) (8.5-10.1) Protein Corrected Calcium 8.2 MG/DL (8.5-10.1) Total Protein 5.5 GM/DL (6.4-8.2) Sodium Level 146 MEQ/L (136-145) Total Creatine Kinase 1060 U/L 1098 U/L 705 U/L (39-308) (39-308) (39-308) Creatine Kinase MB 10.2 NG/ML 9.7 NG/ML 6.0 NG/ML (0.5-3.6) (0.5-3.6) (0.5-3.6) Imaging Last Impressions Chest X-Ray 01/04/17 0139 Signed Impressions: Service Date/Time: Wednesday, January 04, 2017 02:03 - CONCLUSION: Probable consolidative infiltrate in the medial right lower lung. Sreekanth Vital MD PE at Discharge GENERAL: Elderly male in no acute distress. CARDIOVASCULAR: Normal rate and regular rhythm without murmurs, gallops, or rubs. RESPIRATORY: Air movement is fair. There is diffuse bilateral rhonchi. No wheezing. GASTROINTESTINAL: Abdomen soft, non-tender, non-distended. Normal active bowel sounds MUSCULOSKELETAL: Extremities without cyanosis, or edema. NEURO: Alert & Oriented x4 to person, place, time, situation. Moves all ext x4 PSYCH: Appropriate mood and affect. Pt update on day of discharge Reports feeling better except for generalized weakness. Otherwise breathing better. Looking forward to go to rehab. Would like to continue Ativan as needed for Anxiety. Hospital Course 71-year-old male admitted with acute respiratory failure secondary to pneumonia. Evaluation and treatment course detailed below: Acute respiratory failure secondary to pneumonia: Patient was treated with Rocephin and azithromycin. He is discharged on Ceftin to complete the course of antibiotics. Patient is on a prednisone taper as well. Chest pain and Elevated troponins: The patient was followed by cardiology and initially started on therapeutic Lovenox. A nuclear stress as was recommended. However the patient refused to have the tests. He states he will consider it in the future. His chest pain resolved. Patient to continue aspirin, metoprolol, and simvastatin. He is advised to follow up outpatient. Rhabdomyolysis: Unclear etiology. Improved. Physical deconditioning: Secondary to above conditions. Patient is discharged to care home facility to continue rehabilitation. Pt Condition on Discharge: Stable Discharge Disposition: Discharge to SNF Discharge Time: > 30 minutes Discharge Instructions DIET: Follow Instructions for: As Tolerated, No Restrictions Activities you can perform: See Additionl Instruction Other Activity Instructions: Per PT instructions. Follow up Referrals: Appointment for Follow Up with PCP New Medications: Cefuroxime (Ceftin) 500 Mg Tab 500 MG PO BID Infection #10 Ref 0 TAB Lorazepam (Ativan) 1 Mg Tab 1 MG PO Q6H PRN ANXIETY AND/OR AGITATION #10 Ref 0 TAB Continued Medications: Albuterol 8.5 GM Inh (Proair Hfa 8.5 GM Inh) 90 Mcg/Act Aer 2 PUFF INH Q4-6H 108 mcg/actuation PRN SHORTNESS OF BREATH #1 Ref 0 INHALER Albuterol Neb (Albuterol Neb) 2.5 Mg/3 Ml Neb 2.5 MG NEB QID NEB Breathing Treatment #60 Ref 0 NEBULE Aspirin (Aspirin) 81 Mg Tabdr 81 MG PO DAILY TAB Budesonide-Formoterol Inh (Symbicort Inh) 160-4.5 Mcg/Act Aero 2 PUFF INH Q12HR #1 Ref 0 INHALER Metoprolol Succinate ER 24 HR (Metoprolol Succinate ER 24 HR) 50 Mg Tab 50 MG PO DAILY #30 Ref 0 TAB Simvastatin (Simvastatin) 40 Mg Tab 40 MG PO HS Cholesterol Management #30 Ref 0 TAB Tamsulosin (Tamsulosin) 0.4 Mg Cap 0.4 MG PO HS Manage Prostate Problems #30 Ref 0 CAP Trazodone (Trazodone) 100 Mg Tab 200 MG PO HS Control Depression #30 Ref 0 TAB Venlafaxine (Effexor) 37.5 Mg Tab 37.5 MG PO DAILY #60 Ref 0 TAB Patrick Rey MD Jan 09, 2017 09:33
[2017-01-09] MEDS: LORazepam 2 MG/ML VIAL IV PRN (11:00)
[2017-01-09] MEDS ORDERED: ENOXAPARIN SODIUM 40 MG/0.4 ML SYRINGE SQ SCH (11:00)
[2017-01-09 12:00] VITALS: BP 184/98; PULSE 62; PULSE 65; RESP 20; TEMP 97.4; O2SAT 96
--- NOTE | 2017-01-09 17:19 | PD.CARD.PN ---
Subjective Subjective Remarks Patient seen earlier, no chest pain, decreased shortness of breath Objective Medications Current Medications IV Flush (NS Flush) 2 ml UNSCH PRN IVF FLUSH AFTER USING IV ACCESS; Start 01/04 at 01:45; Stop 01/04/17 at 04:19; Status DC Methylprednisolone Sodium Succinate (SoluMEDROL INJ) 125 mg ONCE ONCE IVP Last administered on 01/04/17 02:13; Start 01/04/17 at 01:45; Stop 01/04/17 at 01:46; Status DC Albuterol/ Ipratropium (Duoneb Neb) 1 ampule Q15M INH Last administered on 01/04 01:47; Start 01/04/17 at 01:45; Stop 01/04/17 at 02:01; Status DC Acetaminophen 650 mg 650 mg ONCE ONCE PO Last administered on 01/04/17 02:13 ; Start 01/04/17 at 01:45; Stop 01/04/17 at 01:46; Status DC Azithromycin 500 mg/Sodium Chloride 250 ml @ 250 mls/hr ONCE ONCE IV Last administered on 01/04/17 02:16; Start 01/04/17 at 01:45; Stop 01/04/17 at 02:44 ; Status DC Ceftriaxone Sodium/Sodium Chloride (Rocephin Inj/NS Inj) 100 ml @ 200 mls/hr ONCE ONCE IV Last administered on 01/04/17 02:13; Start 01/04/17 at 01:45; Stop 01/04/17 at 02:14; Status DC Aspirin 162 mg 162 mg ONCE ONCE CHEW Last administered on 01/04/17 03:55; Start 01/04/17 at 03:45; Stop 01/04/17 at 03:46; Status DC Sodium Chloride (NS 1000 ml Inj) 1,000 ml @ 999 mls/hr BOLUS ONCE IV Last administered on 01/04/17 03:55; Start 01/04/17 at 03:45; Stop 01/04/17 at 04:45 ; Status DC Nitroglycerin (Nitroglycerin 2% Oint) 1 inch ONCE ONCE TOPICAL ; Start at 03:45; Stop 01/04/17 at 03:46; Status DC Albuterol/ Ipratropium (Duoneb Neb) 1 ampule ONCE ONCE NEB Last administered on 01/04/17 03:59; Start 01/04/17 at 04:00; Stop 01/04/17 at 04:01; Status DC IV Flush (NS Flush) 2 ml BID IVF ; Start 01/04/17 at 09:00; Stop 01/04/17 at 09: 00; Status DC IV Flush 2 ml 2 ml UNSCH PRN IVF FLUSH AFTER USING IV ACCESS; Start 01/04/17 at 04:15; Stop 01/04/17 at 04:36; Status DC Ceftriaxone Sodium 1000 mg/ Sodium Chloride 100 ml @ 200 mls/hr Q12H IV ; Start 01/04/17 at 18:00; Status Cancel Azithromycin/ Sodium Chloride (Zithromax Inj/ NS 250 ml Inj) 250 ml @ 250 mls/ hr Q24H IV Last administered on 01/09/17 05:57; Start 01/05/17 at 06:00; Stop 01/09/17 at 14:56; Status DC Albuterol/ Ipratropium (Duoneb Neb) 1 ampule Q4HR WHILE AWAKE NEB NEB Last administered on 01/08/17 07:33; Start 01/04/17 at 08:00; Stop 01/08/17 at 08:00 ; Status DC Albuterol/ Ipratropium (Duoneb Neb) 1 ampule Q2HR NEB PRN NEB SOB/WHEEZING Last administered on 01/09/17 07:43; Start 01/04/17 at 04:15; Stop 01/09/17 at 14:56; Status DC Guaifenesin (Mucinex Er) 600 mg BID PO Last administered on 01/09/17 08:55; Start 01/04/17 at 09:00; Stop 01/09/17 at 14:56; Status DC Methylprednisolone Sodium Succinate (SoluMEDROL INJ) 40 mg Q6HR IV PUSH Last administered on 01/07/17 15:27; Start 01/04/17 at 06:00; Stop 01/07/17 at 16:23 ; Status DC IV Flush (NS Flush) 2 ml UNSCH PRN FLUSH FLUSH AFTER USING IV ACCESS Last administered on 01/09/17 03:17; Start 01/04/17 at 04:15; Stop 01/09/17 at 14:56 ; Status DC IV Flush (NS Flush) 2 ml BID FLUSH Last administered on 01/09/17 08:55; Start 01/04/17 at 09:00; Stop 01/09/17 at 14:56; Status DC Ondansetron HCl (Zofran Inj) 4 mg Q6H PRN IVP NAUSEA OR VOMITING Last administered on 01/08/17 06:31; Start 01/04/17 at 04:15; Stop 01/09/17 at 14:56 ; Status DC Bisacodyl (Dulcolax Supp) 10 mg DAILY PRN [place] CONSTIPATION; Start 01/04/17 at 04 :15; Stop 01/09/17 at 14:56; Status DC Acetaminophen (Tylenol) 650 mg Q6H PRN PO FEVER/PAIN SCALE 1 TO 2; Start at 04:15; Stop 01/09/17 at 14:56; Status DC Acetaminophen/ Hydrocodone Bitart (Nixon 5-325 Mg) 1 tab Q4H PRN PO PAIN SCALE 3 TO 5 Last administered on 01/06/17 13:29; Start 01/04/17 at 04:15; Stop 01/09/17 at 14:56; Status DC Morphine Sulfate (Morphine Inj) 2 mg Q3H PRN IV Pain 6-10 Last administered on 01/07/17 15:27; Start 01/04/17 at 04:15; Stop 01/09/17 at 14:56; Status DC Aspirin (Ecotrin Ec) 81 mg DAILY PO Last administered on 01/09/17 08:56; Start 01/04/17 at 09:00; Stop 01/09/17 at 14:56; Status DC Budesonide/ Formoterol Fumarate (Symbicort 160-4.5 Inh) 2 puff Q12HR INH Last administered on 01/09/17 08:55; Start 01/04/17 at 09:00; Stop 01/09/17 at 14:56 ; Status DC Metoprolol Succinate (Toprol Xl) 50 mg DAILY PO Last administered on 01/09/17 08:56; Start 01/04/17 at 09:00; Stop 01/09/17 at 14:56; Status DC Tamsulosin HCl (Flomax) 0.4 mg HS PO Last administered on 01/08/17 21:52; Start 01/04/17 at 21:00; Stop 01/09/17 at 14:56; Status DC Trazodone HCl (Desyrel) 200 mg HS PO Last administered on 01/08/17 21:53; Start 01/04/17 at 21:00; Stop 01/09/17 at 14:56; Status DC Pravastatin Sodium (Pravachol) 80 mg HS PO Last administered on 01/04/17 21:36 ; Start 01/04/17 at 21:00; Stop 01/09/17 at 14:56; Status DC Venlafaxine HCl 37.5 mg 37.5 mg DAILY PO Last administered on 01/04/17 09:09; Start 01/04/17 at 09:00; Stop 01/05/17 at 21:09; Status DC Ceftriaxone Sodium 1000 mg/ Sodium Chloride 100 ml @ 200 mls/hr Q12H IV Last administered on 01/09/17 13:27; Start 01/04/17 at 14:00; Stop 01/09/17 at 14:56 ; Status DC Sodium Chloride 1,000 ml @ 999 mls/hr BOLUS ONCE IV Last administered on 01/04 05:34; Start 01/04/17 at 05:00; Stop 01/04/17 at 06:00; Status DC Sodium Chloride (NS 1000 ml Inj) 1,000 ml @ 999 mls/hr BOLUS ONCE IV Last administered on 01/04/17 06:43; Start 01/04/17 at 06:45; Stop 01/04/17 at 07:45 ; Status DC Nitroglycerin 0.4 mg 0.4 mg Q5M PRN SL X 3 doses for chest pain Last administered on 01/04/17 14:17; Start 01/04/17 at 14:15; Stop 01/09/17 at 14:56 ; Status DC Sodium Chloride 1,000 ml @ 999 mls/hr BOLUS ONCE IV Last administered on 01/04 16:02; Start 01/04/17 at 15:45; Stop 01/04/17 at 16:45; Status DC Sodium Chloride (NS 1000 ml Inj) 1,000 ml @ 100 mls/hr Q10H IV Last administered on 01/06/17 05:21; Start 01/04/17 at 15:45; Stop 01/06/17 at 09:20 ; Status DC Enoxaparin Sodium 70 mg 70 mg Q12H SQ Last administered on 01/08/17 04:04; Start 01/04/17 at 16:00; Stop 01/08/17 at 10:40; Status DC Sodium Chloride (NS 500 ml Inj) 500 ml @ 500 mls/hr BOLUS ONCE IV Last administered on 01/05/17 02:00; Start 01/05/17 at 02:00; Stop 01/05/17 at 02:59 ; Status DC Venlafaxine HCl (Effexor Xr) 37.5 mg DAILY PO Last administered on 01/06/17 20 :59; Start 01/05/17 at 21:15; Stop 01/08/17 at 10:39; Status DC Potassium Chloride (KCl) 30 meq ONCE ONCE PO Last administered on 01/06/17 18 :00; Start 01/06/17 at 18:00; Stop 01/06/17 at 18:01; Status DC Prednisone (Deltasone) 20 mg BID PO Last administered on 01/09/17 08:55; Start 01/07/17 at 21:00; Stop 01/09/17 at 14:56; Status DC Lorazepam (Ativan Inj) 1 mg Q6H PRN IV ANXIETY Last administered on 01/09/17 11:00; Start 01/07/17 at 18:45; Stop 01/09/17 at 14:56; Status DC Venlafaxine HCl (Effexor Xr) 37.5 mg HS PO Last administered on 01/08/17 21:52 ; Start 01/08/17 at 21:00; Stop 01/09/17 at 14:56; Status DC Enoxaparin Sodium (Lovenox Inj) 40 mg Q24H SQ Last administered on 01/09/17 11 :00; Start 01/09/17 at 11:00; Stop 01/09/17 at 14:56; Status DC Vital Signs / I&O Vital Signs Date Time Temp Pulse Resp B/P Pulse Ox O2 Delivery O2 Flow Rate FiO2 01/09/17 12:00 97.4 62 20 184/98 96 01/09/17 12:00 65 01/09/17 08:00 97.5 60 20 182/94 94 01/09/17 08:00 69 01/09/17 07:43 93 Nasal Cannula 2.50 01/09/17 04:00 97.6 65 20 174/85 95 01/09/17 02:00 60 01/09/17 00:00 57 01/09/17 00:00 97.7 55 20 126/68 93 01/08/17 22:00 60 01/08/17 20:00 98.0 62 20 126/88 92 01/08/17 20:00 61 01/08/17 19:46 91 Nasal Cannula 3.00 I/O 01/08/17 01/08/17 01/08/17 01/09/17 01/09/17 01/09/17 07:00 15:00 23:00 07:00 15:00 23:00 Intake Total 100 ml 365 ml 1000 ml Output Total 450 ml 1000 ml Balance -350 ml 365 ml 0 ml Intake Oral 100 ml 240 ml 1000 ml IV Total 125 ml Output Urine Total 450 ml 1000 ml # Bowel Movements 0 Physical Exam GENERAL: NAD, AAOx3 SKIN: Warm and dry. HEAD: Atraumatic. Normocephalic. EYES: Pupils equal and round. No scleral icterus. No injection or drainage. ENT: No nasal bleeding or discharge. Mucous membranes pink and moist. NECK: Trachea midline. No JVD. CARDIOVASCULAR: Regular rate and rhythm. No murmurs noted RESPIRATORY: No accessory muscle use. Decreased breath sounds bilaterally, no active wheezing GASTROINTESTINAL: Abdomen soft, non-tender, nondistended. Hepatic and splenic margins not palpable. MUSCULOSKELETAL: Extremities without clubbing, cyanosis, or edema. No obvious deformities. NEUROLOGICAL: Awake and alert. No obvious cranial nerve deficits. Motor grossly within normal limits. Five out of 5 muscle strength in the arms and legs. Normal speech. PSYCHIATRIC: Appropriate mood and affect; insight and judgment normal. Laboratory Laboratory Tests Test 01/09/17 04:46 Sodium Level 143 MEQ/L Potassium Level 3.7 MEQ/L Chloride Level 106 MEQ/L Carbon Dioxide Level 28.1 MEQ/L Anion Gap 9 MEQ/L Blood Urea Nitrogen 14 MG/DL Creatinine 0.88 MG/DL Estimat Glomerular Filtration 85 ML/MIN Rate Random Glucose 100 MG/DL Calcium Level 8.2 MG/DL Total Creatine Kinase 705 U/L Creatine Kinase MB 6.0 NG/ML Creatine Kinase MB % 0.9 % Assessment and Plan Problem List: (1) Pneumonia (2) COPD (chronic obstructive pulmonary disease) (3) Sepsis (4) Elevated troponin (5) Rhabdomyolysis (6) Chronic obstructive pulmonary disease with acute exacerbation (7) Hypertension (8) Hyperlipidemia Assessment and Plan 1) Atypical chest pain, mild elevation of trop with quick drop off possible Type 2 in nature also with mild rhabdomyolysis, offered ischemic evaluation, but at this time does not want further evaluation 2) Continue medical management with ASA/Statin... BB avoided with acute COPD 3) EF 50-55% 4) Will follow up in the office with me for consideration of stress testing Problem Qualifiers (1) Pneumonia: Qualified Code: J18.1 - Pneumonia of right lower lobe due to infectious organism (2) Sepsis: Qualified Code: A41.9 - Sepsis, due to unspecified organism Juan A Castano DO Jan 09, 2017 17:19
== END 2017-01-09 14:49 | DRG 871 ==
LOC: PHED 01:36 → PHEDA 04:13 → PHEDH 08:10 → HIME 20:50 → HCPC 01-07 18:50
PROVIDERS: ADMIT Family Medicine; ATTEND Family Medicine
DX: A41.9 Sepsis, unspecified organism (principal); J18.9 Pneumonia, unspecified organism; J96.00 Acute respiratory failure, unspecified whether with hypoxia or hypercapnia; N17.9 Acute kidney failure, unspecified; E87.0 Hyperosmolality and hypernatremia; J44.0 Chronic obstructive pulmonary disease with (acute) lower respiratory infection; M62.82 Rhabdomyolysis; J44.1 Chronic obstructive pulmonary disease with (acute) exacerbation; E87.2 Acidosis; E87.6 Hypokalemia; J45.909 Unspecified asthma, uncomplicated; I10 Essential (primary) hypertension; E78.5 Hyperlipidemia, unspecified; M19.90 Unspecified osteoarthritis, unspecified site; Z82.49 Family history of ischemic heart disease and other diseases of the circulatory system; Z87.891 Personal history of nicotine dependence; Z88.0 Allergy status to penicillin; Z88.1 Allergy status to other antibiotic agents; Z99.81 Dependence on supplemental oxygen
CPT/HCPCS: 71010; 76937; 80048; 80053; 81001; 82550; 82552; 83605; 83735; 83880; 84155; 84484; 85007; 85025; 85027; 85610; 85730; 87040; 87070; 87205; 87449; 87641; 87804; 93005; 93306; 94640; 94664; 96365; 96368; 96375; J0456; J0696; J1650; J2060; J2270; J2405; J2920; J2930; J7030; J7040; J7050; J7512

== ENCOUNTER 2017-05-12 17:02 | Observation (INO) | payer MEDICARE, OTHER ==
[2017-05-12] VITALS (7 sets, daily range): BP systolic 101–160; BP diastolic 71–97; PULSE 76–83; RESP 20; TEMP 97.6–97.9; O2SAT 89–94
[~2017-05-12 17:02] MED LIST changes: +ALBU0.08 NEB; -ALBU1AER INH; +ALBUAER3 INH; +ASPI1TAB69 PO; -ASPI81TA82 PO; -AZIT250T74 PO; +CEFT500T3 PO; -DUONI NEB; +LORA-474 PO; -MEDR4PAK3 PO; -METO50CR PO; +METO50TA11 PO; +TAMS0.4C4 PO; -TAMS0.4C67 PO; -TRAZ100 PO; +TRAZ100T4 PO; -VENL-37 PO; +VENL37.5 PO; -Z.0.OXYGENDME NC
[2017-05-12] MEDS ORDERED: ONDANSETRON HCL 4 MG/2 ML VIAL IV PUSH ONE (17:15)
[2017-05-12] MEDS ORDERED: SODIUM CHLORID 0.9% 500 ML INJ 500 ML IV ONE (17:15)
[2017-05-12] MEDS ORDERED: SODIUM CHLORIDE 0.9% FLUSH 10 ML FLUSH IVF PRN (17:15)
[2017-05-12] MEDS ORDERED: MORPHINE SULFATE 8 MG/ML INJ IV PUSH ONE (17:15)
[2017-05-12] MEDS ORDERED: methylPREDNISolone SOD SUCC 125 MG/2 ML VIAL IVP ONE (17:15)
[2017-05-12] MEDS ORDERED: ASPI81CH37 CHEW (17:20)
[2017-05-12] MEDS ORDERED: TRAZ100T6 PO (17:20)
--- NOTE | 2017-05-12 17:20 | PD ---
HPI Chief Complaint: Respiratory Symptoms Time Seen by Provider: 17:08 Travel History International Travel<30 days: No Contact w/Intl Traveler<30days: No Traveled to known affect area: No History of Present Illness HPI The patient is a 72-year-old male who presents emergency department for right sided chest pain, shortness of breath, lightheadedness, dizziness, and cough for last 3-4 days. The patient does have a history of COPD, is on oxygen at night, 2 L, but has been wearing the oxygen continuously for the last several days secondary to his current symptoms. The patient notes a history of dry nonproductive cough. He now complains of right sided pleuritic chest pain is worse with coughing, deep inspiration, certain types of movement. He also notes mild increase in his shortness of breath. The patient does note intermittent chills and sweats, denies any fever. The patient does have a history of COPD, quit smoking 10 years ago after left carotid endarterectomy. The patient is followed by his primary physician, Dr. Yeboah, and his permit coordinator, Dr. Alarcon. The patient denies any left-sided chest pain. The patient denies any nausea, vomiting, diarrhea, or abdominal pain. He denies any swelling to lower extremities and denies any known history of pulmonary embolism or DVT. Symptoms are moderate, there are no current alleviating or exacerbating factors. PFSH Past Medical History Hx Anticoagulant Therapy: Yes Arthritis: Yes Asthma: Yes Anxiety: Yes Depression: Yes Cancer: No Cardiovascular Problems: Yes High Cholesterol: Yes Congestive Heart Failure: No COPD: Yes Coronary Artery Disease: No Diabetes: No Diminished Hearing: No Endocrine: No Gastrointestinal Disorders: No Genitourinary: No Headaches: Yes Hepatitis: No Hiatal Hernia: Yes Hypertension: No Immune Disorder: No Implanted Vascular Access Dvce: No Musculoskeletal: No Neurologic: Yes (memo hands numbness/tingling) Psychiatric: Yes Reproductive: No Respiratory: Yes Immunizations Current: Yes Thyroid Disease: No ?: Not Past Surgical History Abdominal Surgery: Yes (LAP JONA, MEMO. ING. HERNIA REP) AICD: No Cardiac Surgery: Yes (LEFT CAROTID ARTERY ENDARECTOMY) Cholecystectomy: Yes Ear Surgery: No Endocrine Surgery: No Eye Surgery: No Genitourinary Surgery: No Joint Replacement: No Neurologic Surgery: No Oral Surgery: No Pacemaker: No Thoracic Surgery: No Other Surgery: Yes (HERNIA REPAIR) Social History Alcohol Use: No Tobacco Use: No (QUIT 2005) Substance Use: No Allergies-Medications (Allergen,Severity, Reaction): Coded Allergies: Levaquin (Verified Allergy, Mild, ITCHING, 05/12/17) Penicillin (Verified Allergy, Mild, RASH, 05/12/17) Reported Meds & Prescriptions Reported Meds & Active Scripts Active Reported Aspirin Low Dose (Aspirin) 81 Mg Chew 81 Mg CHEW DAILY Trazodone (Trazodone HCl) 100 Mg Tablet 200 Mg PO HS Effexor (Venlafaxine HCl) 37.5 Mg Tab 37.5 Mg PO DAILY Tamsulosin (Tamsulosin HCl) 0.4 Mg Cap 0.4 Mg PO HS Albuterol Neb (Albuterol Sulfate) 2.5 Mg/3 Ml Neb 2.5 Mg NEB QID NEB Simvastatin 40 Mg Tab 40 Mg PO HS Proair Hfa 8.5 GM Inh (Albuterol Sulfate) 90 Mcg/Act Aer 2 Puff INH Q4-6H PRN 108 mcg/actuation Metoprolol Succinate ER 24 HR (Metoprolol Succinate) 50 Mg Tab 50 Mg PO DAILY Symbicort Inh (Budesonide/Formoterol Fumarate) 160-4.5 Mcg/Act Aero 2 Puff INH Q12HR Review of Systems Except as stated in HPI: all other systems reviewed are Neg General / Constitutional: Positive: Chills, No: Fever HENT: Positive: Lightheadedness Cardiovascular: Positive: Chest Pain or Discomfort (right sided pleuritic chest pain), Diaphoresis Respiratory: Positive: Cough, Shortness of Breath, Wheezing, Pleuritic Pain Gastrointestinal: No: Nausea, Vomiting, Abdominal Pain Musculoskeletal: No: Edema Neurologic: Positive: Dizziness Physical Exam Narrative GENERAL: Awake, alert, pleasant 72-year-old male who appears his stated age and is in no acute respiratory distress. SKIN: Focused skin assessment warm/dry. HEAD: Atraumatic. Normocephalic. EYES: No injection or drainage. ENT: No nasal bleeding or discharge. Mucous membranes pink and moist. NECK: Trachea midline. No JVD. CARDIOVASCULAR: Regular rate and rhythm. No murmur appreciated. Heart rate in the 80s. RESPIRATORY: No accessory muscle use. Diminished breath sounds throughout with prolonged expiratory phase and wheezing. GASTROINTESTINAL: Abdomen soft, non-tender, nondistended. No rebound tenderness. MUSCULOSKELETAL: No obvious deformities. No clubbing. No cyanosis. No edema. Calves are soft bilaterally. NEUROLOGICAL: Awake and alert. No obvious cranial nerve deficits. Motor grossly within normal limits. Normal speech. PSYCHIATRIC: Appropriate mood and affect; insight and judgment normal. Data Data Last Documented VS Vital Signs Date Time Temp Pulse Resp B/P Pulse Ox O2 Delivery O2 Flow Rate FiO2 05/12/17 19:08 76 20 101/71 94 Room Air 05/12/17 18:06 21 05/12/17 17:09 97.6 Orders Complete Blood Count With Diff (05/12/17 17:12) Comprehensive Metabolic Panel (05/12/17 17:12) B-Type Natriuretic Peptide (05/12/17 17:12) Act Partial Throm Time (Ptt) (05/12/17 17:12) Prothrombin Time / Inr (Pt) (05/12/17 17:12) Magnesium (Mg) (05/12/17 17:12) Ckmb (Isoenzyme) Profile (05/12/17 17:12) Troponin I (05/12/17 17:12) Blood Culture (05/12/17 17:12) Iv Access Insert/Monitor (05/12/17 17:12) Ecg Monitoring (05/12/17 17:12) Oximetry (05/12/17 17:12) Oxygen Administration (05/12/17 17:12) Chest, Single Ap (05/12/17 17:12) Sodium Chloride 0.9% Flush (Ns Flush) (05/12/17 17:15) Methylprednisolone So Succ Inj (Solumedr (05/12/17 17:15) Albuterol-Ipratropium Neb (Duoneb Neb) (05/12/17 17:15) Lactic Acid (05/12/17 17:12) Resp Blood Gas Venous (05/12/17 ) Ondansetron Inj (Zofran Inj) (05/12/17 17:15) Morphine Inj (Morphine Inj) (05/12/17 17:15) Sodium Chlorid 0.9% 500 Ml Inj (Ns 500 M (05/12/17 17:15) Blood Gas Venous (Vbg) (05/12/17 17:28) CKMB (05/12/17 17:20) CKMB% (05/12/17 17:20) Azithromycin Inj (Zithromax Inj) (05/12/17 19:00) Admit Order (Ed Use Only) (05/12/17 19:22) Labs Laboratory Tests Test 05/12/17 05/12/17 05/12/17 17:20 17:25 17:28 White Blood Count 5.6 TH/MM3 Red Blood Count 4.97 MIL/MM3 Hemoglobin 14.6 GM/DL Hematocrit 44.9 % Mean Corpuscular Volume 90.4 FL Mean Corpuscular Hemoglobin 29.3 PG Mean Corpuscular Hemoglobin 32.4 % Concent Red Cell Distribution Width 12.6 % Platelet Count 221 TH/MM3 Mean Platelet Volume 6.7 FL Neutrophils (%) (Auto) 87.1 % Lymphocytes (%) (Auto) 7.5 % Monocytes (%) (Auto) 4.2 % Eosinophils (%) (Auto) 0.7 % Basophils (%) (Auto) 0.5 % Neutrophils # (Auto) 5.0 TH/MM3 Lymphocytes # (Auto) 0.4 TH/MM3 Monocytes # (Auto) 0.2 TH/MM3 Eosinophils # (Auto) 0.0 TH/MM3 Basophils # (Auto) 0.0 TH/MM3 CBC Comment DIFF FINAL Differential Comment Prothrombin Time 11.0 SEC Prothromb Time International 1.0 RATIO Ratio Activated Partial 27.8 SEC Thromboplast Time Sodium Level 142 MEQ/L Potassium Level 3.9 MEQ/L Chloride Level 107 MEQ/L Carbon Dioxide Level 27.5 MEQ/L Anion Gap 8 MEQ/L Blood Urea Nitrogen 12 MG/DL Creatinine 1.20 MG/DL Estimat Glomerular Filtration 60 ML/MIN Rate Random Glucose 162 MG/DL Calcium Level 9.2 MG/DL Magnesium Level 1.7 MG/DL Total Bilirubin 0.5 MG/DL Aspartate Amino Transf 26 U/L (AST/SGOT) Alanine Aminotransferase 23 U/L (ALT/SGPT) Alkaline Phosphatase 96 U/L Total Creatine Kinase 210 U/L Creatine Kinase MB 3.5 NG/ML Troponin I LESS THAN 0.02 NG/ML B-Type Natriuretic Peptide 38 PG/ML Total Protein 6.8 GM/DL Albumin 3.5 GM/DL Lactic Acid Level 1.9 mmol/L Blood Gas Puncture Site L.AC Blood Gas Patient Temperature 37.0 Venous Blood pH 7.41 Venous Blood Partial Pressure 44 mmHg CO2 Venous Blood Partial Pressure 34 mmHg O2 Venous Blood HCO3 28 mmol/L Venous Blood Oxygen Saturation 61 % Venous Blood Oxygen Content 13.4 Vol % Venous Blood Base Excess 3.3 mmol/L Blood Gas Inspired Oxygen 21 % MDM Medical Decision Making Medical Screen Exam Complete: Yes Emergency Medical Condition: Yes Medical Record Reviewed: Yes Interpretation(s) EKG reveals normal sinus rhythm with a rate 84. Low QRS voltage in the extremity leads. Inverted T waves noted in lead V1, V2, V3. Laboratory Tests Test 05/12/17 05/12/17 05/12/17 17:20 17:25 17:28 White Blood Count 5.6 TH/MM3 Red Blood Count 4.97 MIL/MM3 Hemoglobin 14.6 GM/DL Hematocrit 44.9 % Mean Corpuscular Volume 90.4 FL Mean Corpuscular Hemoglobin 29.3 PG Mean Corpuscular Hemoglobin 32.4 % Concent Red Cell Distribution Width 12.6 % Platelet Count 221 TH/MM3 Mean Platelet Volume 6.7 FL Neutrophils (%) (Auto) 87.1 % Lymphocytes (%) (Auto) 7.5 % Monocytes (%) (Auto) 4.2 % Eosinophils (%) (Auto) 0.7 % Basophils (%) (Auto) 0.5 % Neutrophils # (Auto) 5.0 TH/MM3 Lymphocytes # (Auto) 0.4 TH/MM3 Monocytes # (Auto) 0.2 TH/MM3 Eosinophils # (Auto) 0.0 TH/MM3 Basophils # (Auto) 0.0 TH/MM3 CBC Comment DIFF FINAL Differential Comment Prothrombin Time 11.0 SEC Prothromb Time International 1.0 RATIO Ratio Activated Partial 27.8 SEC Thromboplast Time Sodium Level 142 MEQ/L Potassium Level 3.9 MEQ/L Chloride Level 107 MEQ/L Carbon Dioxide Level 27.5 MEQ/L Anion Gap 8 MEQ/L Blood Urea Nitrogen 12 MG/DL Creatinine 1.20 MG/DL Estimat Glomerular Filtration 60 ML/MIN Rate Random Glucose 162 MG/DL Calcium Level 9.2 MG/DL Magnesium Level 1.7 MG/DL Total Bilirubin 0.5 MG/DL Aspartate Amino Transf 26 U/L (AST/SGOT) Alanine Aminotransferase 23 U/L (ALT/SGPT) Alkaline Phosphatase 96 U/L Total Creatine Kinase 210 U/L Creatine Kinase MB 3.5 NG/ML Troponin I LESS THAN 0.02 NG/ML B-Type Natriuretic Peptide 38 PG/ML Total Protein 6.8 GM/DL Albumin 3.5 GM/DL Lactic Acid Level 1.9 mmol/L Blood Gas Puncture Site L.AC Blood Gas Patient Temperature 37.0 Venous Blood pH 7.41 Venous Blood Partial Pressure 44 mmHg CO2 Venous Blood Partial Pressure 34 mmHg O2 Venous Blood HCO3 28 mmol/L Venous Blood Oxygen Saturation 61 % Venous Blood Oxygen Content 13.4 Vol % Venous Blood Base Excess 3.3 mmol/L Blood Gas Inspired Oxygen 21 % Differential Diagnosis Differential diagnosis includes COPD exacerbation, pneumonia, bronchitis, pleural effusion, pneumonia, atypical ACS, sepsis, pneumothorax. Narrative Course IV was established, labs are drawn and sent, and the patient was placed on cardiac telemetry monitoring and continuous pulse oximetry monitoring. EKG was ordered and interpreted. Chest x-ray was obtained. The patient was administered Solu-Medrol 125 mg intravenously and duo nebs 3. Lactic acid and blood culture were sent to lab. The patient's lactic acid is 1.9, white count is normal with slight increase in neutrophils. Chest x-ray reveals increased interstitial markings but no evidence of pneumonia. The patient was reevaluated at 6:45 PM, he still feels weak, lightheaded, dizzy. He states he has difficulty ambulating secondary to generalized weakness. The patient lives alone, states his neighbor drove him to the hospital. We had a discussion regarding outpatient follow-up with his permit coordinator tomorrow, however, the patient does not believe he'll be able to return home and drive himself to the physician's office secondary to his deconditioning. Therefore, after discussion was agreed the patient be 23 hour observation. He was provided Zithromax intravenously in the emergency Department. Patient may need PT evaluation and this is unable to do ADLs, may need short term prison facility placement. Physician Communication [facility]. I discussed the patient with Dr. Sherwood who agrees with 23 hour observation. Diagnosis Primary Impression: Chronic obstructive pulmonary disease with acute exacerbation Additional Impression: Physical deconditioning Admitting Information Admitting Physician Requests: Observation Condition: Stable Salvador Kaur MD May 12, 2017 17:19 Salvador Kaur MD May 12, 2017 17:19
[2017-05-12 17:33] LABS: BLOOD GAS VENOUS BASE EXCESS 3.3 mmol/L (-2-2); BLOOD GAS VENOUS HCO3 28 mmol/L (22-26); BLOOD GAS VENOUS O2 CONTENT 13.4 Vol % (9.0-17.0); BLOOD GAS VENOUS O2 HGB SAT 61 % (70-76); BLOOD GAS VENOUS PCO2 44 mmHg (44-48); BLOOD GAS VENOUS PO2 34 mmHg (35-40); BLOOD GAS VENOUS pH 7.41 (7.360-7.400)
[2017-05-12 17:34] LABS: CRITICAL VALUE NO; FIO2 21 %; STAT YES
[2017-05-12] MEDS: RESP: ALBUTEROL 2.5 MG/IPRATROPIUM 0.5 MG NEB (SCH) INH ×2 (17:39→17:40)
[2017-05-12 17:50] LABS: BASOPHIL % 0.5 % (0.0-2.0); EOSINOPHIL % 0.7 % (0.0-4.0); HEMATOCRIT 44.9 % (39.0-51.0); HEMO FLAGS DIFF FINAL; LYMPH % 7.5 % (9.0-44.0); LYMPHOCYTE # 0.4 TH/MM3 (1.0-4.8); MEAN CELL VOLUME 90.4 FL (80.0-100.0); MEAN CORPUSCULAR HEMOGLOBIN 29.3 PG (27.0-34.0); MEAN CORPUSCULAR HGB CONC 32.4 % (32.0-36.0); MONO % 4.2 % (0.0-8.0); NEUT % 87.1 % (16.0-70.0); PLATELET COUNT 221 TH/MM3 (150-450); RED BLOOD COUNT 4.97 MIL/MM3 (4.50-5.90); RED CELL DISTRIBUTION WIDTH 12.6 % (11.6-17.2); WHITE BLOOD COUNT 5.6 TH/MM3 (4.0-11.0)
[2017-05-12 17:58] LABS: CHLORIDE 107 MEQ/L (98-107); POTASSIUM 3.9 MEQ/L (3.5-5.1); SODIUM (NA) 142 MEQ/L (136-145)
[2017-05-12 18:02] LABS: ANION GAP 8 MEQ/L (5-15); APTT (PATIENT) 27.8 SEC (24.3-30.1); BICARBONATE 27.5 MEQ/L (21.0-32.0); BLOOD UREA NITROGEN 12 MG/DL (7-18); MAGNESIUM 1.7 MG/DL (1.5-2.5)
[2017-05-12 18:05] LABS: ALT (GPT) 23 U/L (12-78); AST (GOT) 26 U/L (15-37); GLOMERULAR FILTRATION RATE 60 ML/MIN (>89)
[2017-05-12 18:06] LABS: TOTAL BILIRUBIN ADULT 0.5 MG/DL (0.2-1.0)
[2017-05-12 18:08] LABS: ALKALINE PHOSPHATASE 96 U/L (45-117); CREATINE KINASE 210 U/L (39-308)
[2017-05-12 18:20] LABS: CKMB 3.5 NG/ML (0.5-3.6)
--- NOTE | 2017-05-12 18:36 | RADRPT ---
EXAM DATE/TIME: 05/12/2017 18:18 [facility] COMPARISON: CHEST SINGLE AP, January 04, 2017, 2:03. INDICATIONS : Short of breath, cough, chest pains MEDICAL HISTORY : Chronic obstructive pulmonary disease. Emphysema. Hypertension. SURGICAL HISTORY : Cholecystectomy. ENCOUNTER: Initial ACUITY: 3 days PAIN SCORE: 6/10 LOCATION: Bilateral chest FINDINGS: There is slight prominence of the interstitial markings partially technical. There is no appreciable pleural effusion for technique. Heart and mediastinum are unremarkable. CONCLUSION: Slight prominence of the interstitial markings. Ludivina Lovett MD on May 12, 2017 at 18:34 Board Certified Radiologist. This report was verified electronically.
[2017-05-12] MEDS ORDERED: AZITHROMYCIN INJ 500 MG in SODIUM CHLOR 0.9% 250 ML INJ 250 ML IV ONE (19:00)
[2017-05-12] MEDS ORDERED: BISACODYL 10 MG SUPP RECTAL PRN (19:30)
[2017-05-12] MEDS ORDERED: ONDANSETRON HCL 4 MG/2 ML VIAL IVP PRN (19:30)
[2017-05-12] MEDS ORDERED: RESP: ALBUTEROL 2.5 MG/IPRATROPIUM 0.5 MG NEB (PRN) NEB (19:30)
[2017-05-12] MEDS ORDERED: MAGNESIUM HYDROXIDE SUSP 30 ML CUP PO PRN (19:30)
[2017-05-12] MEDS ORDERED: SENNOSIDES 8.6 MG TAB PO PRN (19:30)
[2017-05-12] MEDS ORDERED: ACETAMINOPHEN 325 MG TAB PO PRN (19:30)
[2017-05-12] MEDS ORDERED: SODIUM CHLORIDE 0.9% FLUSH 10 ML FLUSH IV FLUSH PRN (19:30)
[2017-05-12] MEDS ORDERED: ACETAMINOPHEN/HYDROcodone 325 MG/5 MG TAB PO PRN (19:30)
[2017-05-12] MEDS ORDERED: ACETAMINOPHEN/HYDROcodone 325 MG/10 MG TAB PO PRN (19:30)
[2017-05-12] MEDS ORDERED: LACTULOSE SYRUP 20 GM/30 ML CUP PO PRN (19:30)
[2017-05-12] MEDS: RESP: ALBUTEROL 2.5 MG/IPRATROPIUM 0.5 MG NEB (SCH) NEB (20:00)
[2017-05-12] MEDS: traZODone HCL 100 MG TAB PO SCH (22:18)
[2017-05-12] MEDS: guaiFENesin E.R. 600 MG TAB PO SCH (22:18)
[2017-05-12] MEDS: BUDESONIDE-FORMOTEROL 160/4.5 MCG INHALER INH SCH (22:18)
[2017-05-12] MEDS: DOCUSATE SODIUM 50 MG/SENNA 8.6 MG TAB PO SCH (22:19)
[2017-05-12] MEDS: SODIUM CHLORIDE 0.9% FLUSH 10 ML FLUSH IV FLUSH SCH (22:19)
[2017-05-12] MEDS: PRAVASTATIN SOD 80 MG TAB PO SCH (22:19)
[2017-05-12] MEDS: TAMSULOSIN HCL 0.4 MG CAP PO SCH (22:19)
[2017-05-12] MEDS: methylPREDNISolone SOD SUCC 40 MG/1 ML VIAL IV PUSH SCH (23:34)
[2017-05-13] VITALS (7 sets, daily range): BP systolic 113–131; BP diastolic 71–79; PULSE 67–80; RESP 16–18; TEMP 95.7–97.4; O2SAT 93–95
[2017-05-13] MEDS: methylPREDNISolone SOD SUCC 40 MG/1 ML VIAL IV PUSH SCH ×3 (05:35→17:29)
[2017-05-13 06:38] LABS: AUTOMATED NEUTROPHIL # 4.9 TH/MM3 (1.8-7.7); BASOPHIL % 0.5 % (0.0-2.0); EOSINOPHIL % 0.1 % (0.0-4.0); HEMATOCRIT 45.3 % (39.0-51.0); HEMO FLAGS DIFF FINAL; LYMPH % 6.3 % (9.0-44.0); LYMPHOCYTE # 0.3 TH/MM3 (1.0-4.8); MEAN CELL VOLUME 91.2 FL (80.0-100.0); MEAN CORPUSCULAR HEMOGLOBIN 29.8 PG (27.0-34.0); MEAN CORPUSCULAR HGB CONC 32.7 % (32.0-36.0); MONO % 1.3 % (0.0-8.0); NEUT % 91.8 % (16.0-70.0); PLATELET COUNT 231 TH/MM3 (150-450); RED BLOOD COUNT 4.96 MIL/MM3 (4.50-5.90); RED CELL DISTRIBUTION WIDTH 12.4 % (11.6-17.2); WHITE BLOOD COUNT 5.3 TH/MM3 (4.0-11.0)
[2017-05-13 06:56] LABS: CHLORIDE 107 MEQ/L (98-107); POTASSIUM 4.4 MEQ/L (3.5-5.1); SODIUM (NA) 144 MEQ/L (136-145)
[2017-05-13 07:02] LABS: ANION GAP 8 MEQ/L (5-15); BICARBONATE 28.9 MEQ/L (21.0-32.0)
[2017-05-13 07:03] LABS: BLOOD UREA NITROGEN 10 MG/DL (7-18)
[2017-05-13 07:05] LABS: ALT (GPT) 24 U/L (12-78); AST (GOT) 23 U/L (15-37); GLOMERULAR FILTRATION RATE 73 ML/MIN (>89)
[2017-05-13 07:06] LABS: TOTAL BILIRUBIN ADULT 0.5 MG/DL (0.2-1.0)
[2017-05-13 07:08] LABS: ALKALINE PHOSPHATASE 92 U/L (45-117)
[2017-05-13] MEDS: RESP: ALBUTEROL 2.5 MG/IPRATROPIUM 0.5 MG NEB (SCH) NEB ×4 (07:32→19:39)
[2017-05-13] MEDS: ASPIRIN 81 MG CHEW TAB CHEW SCH (08:14)
[2017-05-13] MEDS: BUDESONIDE-FORMOTEROL 160/4.5 MCG INHALER INH SCH ×2 (08:14→20:16)
[2017-05-13] MEDS: METOPROLOL SUCCINATE 50 MG EXTENDED RELEASE TAB PO SCH (08:15)
[2017-05-13] MEDS: SODIUM CHLORIDE 0.9% FLUSH 10 ML FLUSH IV FLUSH SCH ×2 (08:16→20:16)
[2017-05-13] MEDS: DOCUSATE SODIUM 50 MG/SENNA 8.6 MG TAB PO SCH ×2 (08:16→20:15)
[2017-05-13] MEDS: guaiFENesin E.R. 600 MG TAB PO SCH ×2 (08:16→20:15)
[2017-05-13] MEDS ORDERED: VENLAFAXINE HCL XR 37.5 MG CAP PO SCH (09:00)
[2017-05-13] MEDS: ALPRAZolam 0.5 MG TAB PO PRN (11:02)
--- NOTE | 2017-05-13 11:42 | HHI.HP ---
[facility] Service [facility] Primary Care Physician Jessica Yeboah MD Admission Diagnosis COPD exacerbation, physical deconditioning Diagnoses: Chief Complaint: copd HTN BPH Travel History International Travel<30 Days: No Contact w/Intl Traveler <30 Da: No Traveled to Known Affected Are: No History of Present Illness The patient is a 72-year-old male who presents emergency department complaining of one day moderate right sided chest tightness worse with breathing, shortness of breath, lightheadedness, dizziness, and cough for last 3-4 days. Hwe has increased his nightly home o2 use to all day and the use of his nebulizer. He says this has helped his symptoms but his o2 sats are always above 90. Chest pain is relived by rubbing the area. On my review the cxray does not show pneumonia. Review of Systems Constitutional: COMPLAINS OF: Fatigue, DENIES: Diaphoretic episodes, Fever, Weight gain, Weight loss, Chills, Dizziness, Change in appetite, Night Sweats Endocrine: DENIES: Heat/cold intolerance, Polydipsia, Polyuria, Polyphagia Eyes: DENIES: Blurred vision, Diplopia, Eye inflammation, Eye pain, Vision loss , Photosensitivity, Double Vision Ears, nose, mouth, throat: DENIES: Tinnitus, Hearing loss, Vertigo, Nasal discharge, Oral lesions, Throat pain, Hoarseness, Ear Pain, Running Nose, Epistaxis, Sinus Pain, Toothache, Odynophagia Respiratory: COMPLAINS OF: Cough, Sputum production, Shortness of breath, DENIES: Apneas, Snoring, Wheezing, Hemoptysis Cardiovascular: COMPLAINS OF: Chest pain (with deep breath), DENIES: Palpitations, Syncope, Dyspnea on Exertion, PND, Lower Extremity Edema, Orthopnea, Claudication Gastrointestinal: DENIES: Abdominal pain, Black stools, Bloody stools, Constipation, Diarrhea, Nausea, Vomiting, Difficulty Swallowing, Anorexia Genitourinary: DENIES: Sexual dysfunction, Urinary frequency, Urinary incontinence, Urgency, Hematuria, Dysuria, Nocturia, Penile Discharge, Testicular Pain, Testicular Swelling Musculoskeletal: DENIES: Joint pain, Muscle aches, Stiffness, Joint Swelling, Back pain, Neck pain Integumentary: DENIES: Abnormal pigmentation, Nail changes, Pruritus, Rash Hematologic/lymphatic: DENIES: Bruising, Lymphadenopathy Neurologic: DENIES: Abnormal gait, Headache, Localized weakness, Paresthesias, Seizures, Speech Problems, Tremor, Poor Balance Psychiatric: DENIES: Anxiety, Confusion, Mood changes, Depression, Hallucinations, Agitation, Suicidal Ideation, Homicidal Ideation, Delusions Past Family Social History Past Medical History copd PAD Past Surgical History Carotid artery surgery, cholecystectomy, bilateral hernia repair Reported Medications reviewed in the emr, none new Allergies: Coded Allergies: Levaquin (Verified Allergy, Mild, ITCHING, 05/12/17) Penicillin (Verified Allergy, Mild, RASH, 05/12/17) Active Ordered Medications reviewed in the emr Family History copd Social History quit smoking 2 years ago lives alone no etoh Physical Exam Vital Signs Vital Signs Date Time Temp Pulse Resp B/P Pulse Ox O2 Delivery O2 Flow Rate FiO2 05/13/17 08:00 96.4 74 18 131/71 93 05/13/17 07:35 95 Nasal Cannula 2.00 05/13/17 04:00 05/13/17 01:19 95.7 71 16 113/73 94 05/12/17 21:45 93 Nasal Cannula 3.00 05/12/17 21:00 97.9 76 20 101/71 94 05/12/17 19:08 76 20 101/71 94 Room Air 05/12/17 18:06 89 21 05/12/17 18:04 18 05/12/17 17:44 93 21 05/12/17 17:18 93 Room Air 05/12/17 17:18 83 20 104/74 93 Room Air 05/12/17 17:13 84 20 93 Room Air 05/12/17 17:09 97.6 83 20 160/97 93 Physical Exam GENERAL: This is a well-nourished, well-developed patient, in no apparent distress. SKIN: No rashes, ecchymoses or lesions. Cool and dry. HEAD: Atraumatic. Normocephalic. No temporal or scalp tenderness. EYES: Pupils equal round and reactive. Extraocular motions intact. No scleral icterus. No injection or drainage. ENT: Nose without bleeding, purulent drainage or septal hematoma. Throat without erythema, tonsillar hypertrophy or exudate. Uvula midline. Airway patent. NECK: Trachea midline. No JVD or lymphadenopathy. Supple, nontender, no meningeal signs. CARDIOVASCULAR: Regular rate and rhythm without murmurs, gallops, or rubs. RESPIRATORY: decreased air flow bilaterally. No rales, or rhonchi appreciated GASTROINTESTINAL: Abdomen soft, non-tender, nondistended. No hepato-splenomegaly , or palpable masses. No guarding. MUSCULOSKELETAL: Extremities without clubbing, cyanosis, or edema. No joint tenderness, effusion, or edema noted. No calf tenderness. Negative Homans sign bilaterally. NEUROLOGICAL: Awake and alert. Cranial nerves II through XII intact. Motor and sensory grossly within normal limits. Five out of 5 muscle strength in all muscle groups. Normal speech. Laboratory Laboratory Tests Test 05/12/17 05/12/17 05/12/17 05/13/17 17:20 17:25 17:28 05:50 White Blood Count 5.6 5.3 Red Blood Count 4.97 4.96 Hemoglobin 14.6 14.8 Hematocrit 44.9 45.3 Mean Corpuscular Volume 90.4 91.2 Mean Corpuscular Hemoglobin 29.3 29.8 Mean Corpuscular Hemoglobin 32.4 32.7 Concent Red Cell Distribution Width 12.6 12.4 Platelet Count 221 231 Mean Platelet Volume 6.7 6.7 Neutrophils (%) (Auto) 87.1 91.8 Lymphocytes (%) (Auto) 7.5 6.3 Monocytes (%) (Auto) 4.2 1.3 Eosinophils (%) (Auto) 0.7 0.1 Basophils (%) (Auto) 0.5 0.5 Neutrophils # (Auto) 5.0 4.9 Lymphocytes # (Auto) 0.4 0.3 Monocytes # (Auto) 0.2 0.1 Eosinophils # (Auto) 0.0 0.0 Basophils # (Auto) 0.0 0.0 CBC Comment DIFF FINAL DIFF FINAL Differential Comment Prothrombin Time 11.0 Prothromb Time International 1.0 Ratio Activated Partial 27.8 Thromboplast Time Sodium Level 142 144 Potassium Level 3.9 4.4 Chloride Level 107 107 Carbon Dioxide Level 27.5 28.9 Anion Gap 8 8 Blood Urea Nitrogen 12 10 Creatinine 1.20 1.00 Estimat Glomerular Filtration 60 73 Rate Random Glucose 162 150 Calcium Level 9.2 9.1 Magnesium Level 1.7 Total Bilirubin 0.5 0.5 Aspartate Amino Transf 26 23 (AST/SGOT) Alanine Aminotransferase 23 24 (ALT/SGPT) Alkaline Phosphatase 96 92 Total Creatine Kinase 210 Creatine Kinase MB 3.5 Troponin I LESS THAN 0.02 B-Type Natriuretic Peptide 38 Total Protein 6.8 6.7 Albumin 3.5 3.4 Lactic Acid Level 1.9 Blood Gas Puncture Site L.AC Blood Gas Patient Temperature 37.0 Venous Blood pH 7.41 Venous Blood Partial Pressure 44 CO2 Venous Blood Partial Pressure 34 O2 Venous Blood HCO3 28 Venous Blood Oxygen Saturation 61 Venous Blood Oxygen Content 13.4 Venous Blood Base Excess 3.3 Blood Gas Inspired Oxygen 21 Date/Time Procedure Status Source Growth 05/12/17 17:20 Aerobic Blood Culture - Preliminary Resulted Blood Peripheral NO GROWTH IN 1 DAY 05/12/17 17:20 Anaerobic Blood Culture - Preliminary Resulted Blood Peripheral NO GROWTH IN 1 DAY Result Diagram: 05/13/17 0550 05/13/17 0550 Imaging Last Impressions Chest X-Ray 05/12/17 1712 Signed Impressions: Service Date/Time: Friday, May 12, 2017 18:18 - CONCLUSION: Slight prominence of the interstitial markings. Ludivina Lovett MD Assessment and Plan Problem List: (1) Chronic obstructive pulmonary disease with acute exacerbation ICD Code: J44.1 Status: Acute Plan: Nebs, O2, Steroids IV, ptn education add doxy (2) Hypertension ICD Code: I10 Status: Acute Plan: controlled on metoprolol (3) Anxiety ICD Code: F41.9 Status: Acute Plan: resume ptn home meds xanax, trazodone, effexor Follow with PCP (4) Hyperglycemia ICD Code: R73.9 Status: Acute Plan: check hga1c Lifestyle modification will watch closely on steroids Assessment and Plan plan of care to be determined by hospital course Code Status dnr Discussed Condition With patient Tsering Hung MD May 13, 2017 11:42
[2017-05-13] MEDS: DOXYCYCLINE HYCLATE 100 MG TAB PO SCH ×2 (12:41→20:15)
--- NOTE | 2017-05-13 19:46 | EKG ---
Date Performed: 05/12/2017 Time Performed: 17:05:20 PTAGE: 72 years EKG: Sinus rhythm LOW QRS VOLTAGE IN EXTREMITY LEADS ST DEVIATION AND MODERATE T-WAVE ABNORMALITY, CONSIDER ANTERIOR I SCHEMIA ABNORMAL ECG PREVIOUS TRACING 01/04/2017 14.00 Since previous tracing, no significant change noted DOCTOR: Nettie Motta Interpretating Date/Time 05/13/2017 19:44:28
[2017-05-13] MEDS: PRAVASTATIN SOD 80 MG TAB PO SCH (20:15)
[2017-05-13] MEDS: traZODone HCL 100 MG TAB PO SCH (20:15)
[2017-05-13] MEDS: TAMSULOSIN HCL 0.4 MG CAP PO SCH (20:16)
[2017-05-13] MEDS: VENLAFAXINE HCL XR 37.5 MG CAP PO SCH (20:16)
[2017-05-13 22:08] LABS: HEMOGLOBIN A1a 0.8 %; HEMOGLOBIN A1b 1.7 %; HEMOGLOBIN Ao 85.7 %; HEMOGLOBIN LA1C 2.1 %; HEMOGLOBIN P3 3.7 %
[2017-05-14] VITALS: BP 119/77; PULSE 79; RESP 16; TEMP 97.5; O2SAT 95
[2017-05-14] MEDS: methylPREDNISolone SOD SUCC 40 MG/1 ML VIAL IV PUSH SCH ×2 (00:24→05:25)
[2017-05-14] MEDS: RESP: ALBUTEROL 2.5 MG/IPRATROPIUM 0.5 MG NEB (SCH) NEB (07:24)
[2017-05-14 07:26] VITALS: O2SAT 95
[2017-05-14 08:00] VITALS: BP 145/85; PULSE 65; RESP 20; TEMP 95.4; O2SAT 95
[2017-05-14] MEDS: ALPRAZolam 0.5 MG TAB PO PRN (08:23)
[2017-05-14] MEDS: ASPIRIN 81 MG CHEW TAB CHEW SCH (08:24)
[2017-05-14] MEDS: METOPROLOL SUCCINATE 50 MG EXTENDED RELEASE TAB PO SCH (08:24)
[2017-05-14] MEDS: VENLAFAXINE HCL XR 37.5 MG CAP PO SCH (08:25)
[2017-05-14] MEDS: guaiFENesin E.R. 600 MG TAB PO SCH (08:25)
[2017-05-14] MEDS: DOXYCYCLINE HYCLATE 100 MG TAB PO SCH (08:25)
[2017-05-14] MEDS: SODIUM CHLORIDE 0.9% FLUSH 10 ML FLUSH IV FLUSH SCH (08:26)
[2017-05-14] MEDS: DOCUSATE SODIUM 50 MG/SENNA 8.6 MG TAB PO SCH (08:26)
[2017-05-14] MEDS: BUDESONIDE-FORMOTEROL 160/4.5 MCG INHALER INH SCH (08:26)
[2017-05-14] MEDS ORDERED: PRED20 PO (10:34)
[2017-05-14] MEDS ORDERED: DOXY100T PO (10:34)
--- NOTE | 2017-05-14 10:34 | HHI.DCPOC ---
Discharge Care Plan Diagnosis: (1) COPD (chronic obstructive pulmonary disease) Goals to Promote Your Health * To prevent worsening of your condition and complications * To maintain your health at the optimal level Directions to Meet Your Goals Take your medications as prescribed Follow your dietary instruction Follow activity as directed Keep your appointments as scheduled Take your immunizations and boosters as scheduled If your symptoms worsen call your PCP, if no PCP go to Urgent Care Center or Emergency Room Smoking is Dangerous to Your Health. Avoid second hand smoke Call the 24-hour hour crisis hotline for domestic abuse at Tsering Hung MD May 14, 2017 10:34
--- NOTE | 2017-05-14 10:36 | HHI.DS ---
Discharge Summary Admission Date May 12, 2017 at 19:24 Discharge Date: May 14, 2017 Admitting Diagnosis COPD exacerbation, physical deconditioning (1) Chronic obstructive pulmonary disease with acute exacerbation ICD Code: J44.1 (2) Hypertension ICD Code: I10 (3) Anxiety ICD Code: F41.9 (4) Hyperglycemia ICD Code: R73.9 Procedures None Brief History - From Admission The patient is a 72-year-old male who presents emergency department complaining of one day moderate right sided chest tightness worse with breathing, shortness of breath, lightheadedness, dizziness, and cough for last 3-4 days. Hwe has increased his nightly home o2 use to all day and the use of his nebulizer. He says this has helped his symptoms but his o2 sats are always above 90. Chest pain is relived by rubbing the area. On my review the cxray does not show pneumonia. CBC/BMP: 05/13/17 0550 05/13/17 0550 Significant Findings Laboratory Tests Test 05/12/17 05/12/17 05/13/17 17:20 17:28 05:50 Mean Platelet Volume 6.7 FL 6.7 FL (7.0-11.0) (7.0-11.0) Neutrophils (%) (Auto) 87.1 % 91.8 % (16.0-70.0) (16.0-70.0) Lymphocytes (%) (Auto) 7.5 % 6.3 % (9.0-44.0) (9.0-44.0) Lymphocytes # (Auto) 0.4 TH/MM3 0.3 TH/MM3 (1.0-4.8) (1.0-4.8) Estimat Glomerular Filtration 60 ML/MIN (>89) 73 ML/MIN (>89) Rate Random Glucose 162 MG/DL 150 MG/DL (74-106) (74-106) Troponin I LESS THAN 0.02 NG/ML (0.02-0.05) Venous Blood pH 7.41 (7.360-7.400) Venous Blood Partial Pressure 34 mmHg (35-40) O2 Venous Blood HCO3 28 mmol/L (22-26) Venous Blood Oxygen Saturation 61 % (70-76) Venous Blood Base Excess 3.3 mmol/L (-2-2) Imaging Last Impressions Chest X-Ray 05/12/17 1712 Signed Impressions: Service Date/Time: Friday, May 12, 2017 18:18 - CONCLUSION: Slight prominence of the interstitial markings. Ludivina Lovett MD Pt update on day of discharge Patient seen today in follow-up for COPD and anxiety. Doing much better. Breathing is better. Discharge plans discussed with patient and nursing team. Medications addressed with patient Hospital Course Patient is a 72-year-old gentleman was treated for mild COPD exacerbation. He received IV steroids, nebulizers and of antibiotics as well as education. He also had some component of anxiety which improved with his home medications. Patient began to breathe better and felt better and was discharged home with further outpatient management plans. Pt Condition on Discharge: Good Discharge Disposition: Discharge Home Discharge Time: > 30 minutes Discharge Instructions DIET: Follow Instructions for: As Tolerated, No Restrictions Activities you can perform: Regular-No Restrictions Follow up Referrals: PCP Follow-up - 1 Week New Medications: Prednisone (Prednisone) 20 Mg Tab 20 MG PO DIRECTED Take 40 MG daily x 4 days, then 20 MG x 4 days, then 10 MG daily x 4 days. copd #15 Ref 0 TAB Doxycycline Hyclate (Doxycycline Hyclate) 100 Mg Tab 100 MG PO BID Infection #10 TAB Continued Medications: Albuterol 8.5 GM Inh (Proair Hfa 8.5 GM Inh) 90 Mcg/Act Aer 2 PUFF INH Q4-6H 108 mcg/actuation PRN SHORTNESS OF BREATH #1 Ref 0 INHALER Albuterol Neb (Albuterol Neb) 2.5 Mg/3 Ml Neb 2.5 MG NEB QID NEB Breathing Treatment #60 Ref 0 NEBULE Aspirin (Aspirin Low Dose) 81 Mg Chew 81 MG CHEW DAILY Ref 0 TAB Budesonide-Formoterol Inh (Symbicort Inh) 160-4.5 Mcg/Act Aero 2 PUFF INH Q12HR #1 Ref 0 INHALER Metoprolol Succinate ER 24 HR (Metoprolol Succinate ER 24 HR) 50 Mg Tab 50 MG PO DAILY #30 Ref 0 TAB Simvastatin (Simvastatin) 40 Mg Tab 40 MG PO HS Cholesterol Management #30 Ref 0 TAB Tamsulosin (Tamsulosin) 0.4 Mg Cap 0.4 MG PO HS Manage Prostate Problems #30 Ref 0 CAP Trazodone (Trazodone) 100 Mg Tablet 200 MG PO HS Control Depression #30 Ref 0 TAB Venlafaxine (Effexor) 37.5 Mg Tab 37.5 MG PO DAILY #60 Ref 0 TAB Tsering Hung MD May 14, 2017 10:36
== END 2017-05-14 11:34 | disposition home or self-care (01) ==
LOC: PHED 17:02 → PHEDA 19:24 → PH3B 21:15
PROVIDERS: ADMIT Hospitalist; ATTEND Hospitalist
DX: J44.1 Chronic obstructive pulmonary disease with (acute) exacerbation (principal); I10 Essential (primary) hypertension; Z87.891 Personal history of nicotine dependence; F41.9 Anxiety disorder, unspecified; Z66 Do not resuscitate; R73.9 Hyperglycemia, unspecified; Z99.81 Dependence on supplemental oxygen; Z79.899 Other long term (current) drug therapy; Z79.82 Long term (current) use of aspirin; R94.31 Abnormal electrocardiogram [ECG] [EKG]
CPT/HCPCS: 71010; 80053; 82550; 82552; 82805; 83036; 83605; 83735; 83880; 84484; 85025; 85610; 85730; 87040; 93005; 94640; 94664; 96361; 96374; 96375; 97162; 99285; G0378; G8987; G8988; J0456; J2270; J2405; J2920; J2930; J7040; J7050

== ENCOUNTER 2017-09-12 08:26 | Inpatient (IN) | payer MEDICARE, MEDICAID ==
[~2017-09-12] VITALS: Ht 172.7 cm; Wt 68.5 kg
[2017-09-12] VITALS (9 sets, daily range): BP systolic 84–121; BP diastolic 52–68; PULSE 72–114; RESP 18–28; TEMP 96.1–98.3; O2SAT 88–95
[~2017-09-12 08:26] MED LIST changes: -ASPI1TAB69 PO; +ASPI81CH6 CHEW; -CEFT500T3 PO; +DOXY100T PO; -LORA-474 PO; +METO1TAB9 PO; -METO50TA11 PO; +PRED20 PO; +TRAZ100T10 PO; -TRAZ100T4 PO
[2017-09-12] MEDS ORDERED: IPRASOL INH (08:41)
[2017-09-12] MEDS: RESP: ALBUTEROL 2.5 MG/IPRATROPIUM 0.5 MG NEB (SCH) INH (08:42)
--- NOTE | 2017-09-12 08:58 | PD ---
HPI Chief Complaint: Respiratory Distress Time Seen by Provider: 08:37 Travel History International Travel<30 days: No Contact w/Intl Traveler<30days: No Traveled to known affect area: No History of Present Illness HPI 72yo M with PMH of COPD presents to the ED with c/o sob since this morning. Pt usually uses 2.5 liter of oxygen at night. [place] feverish today. Had increased cough for a few days. Denies any chest pain, n/v, abdominal pain, focal weakness or numbness. Pt given duonebs, methylprednisolone 125mg IV by EVAC. PFSH Past Medical History Hx Anticoagulant Therapy: Yes Arthritis: Yes Asthma: Yes Autoimmune Disease: No Anxiety: Yes Depression: Yes Heart Rhythm Problems: No Cancer: No Cardiovascular Problems: Yes High Cholesterol: Yes Chemotherapy: No Chest Pain: No Congestive Heart Failure: No COPD: Yes Cerebrovascular Accident: No Coronary Artery Disease: Yes Diabetes: No Diminished Hearing: No Endocrine: No Gastrointestinal Disorders: No GERD: No Genitourinary: No Headaches: Yes Hepatitis: No Hiatal Hernia: Yes Hypertension: Yes Immune Disorder: No Implanted Vascular Access Dvce: No Kidney Stones: No Musculoskeletal: No Neurologic: Yes (rosa isela hands numbness/tingling) Psychiatric: Yes Reproductive: No Respiratory: Yes Immunizations Current: Yes Migraines: No Radiation Therapy: No Renal Failure: No Seizures: No Sleep Apnea: No Thyroid Disease: No Ulcer: No Past Surgical History AICD: No Arteriovenous Shunt: No Cardiac Surgery: Yes (LEFT CAROTID ARTERY ENDARECTOMY) Cholecystectomy: Yes Ear Surgery: No Endocrine Surgery: No Eye Surgery: No Genitourinary Surgery: No Insulin Pump: No Joint Replacement: No Neurologic Surgery: No Oral Surgery: No Pacemaker: No Thoracic Surgery: No Other Surgery: Yes (HERNIA REPAIR) Social History Alcohol Use: No Tobacco Use: No (QUIT 2005) Substance Use: No Allergies-Medications (Allergen,Severity, Reaction): Coded Allergies: levofloxacin (Unverified Allergy, Mild, ITCHING, 09/12/17) penicillin G (Unverified Allergy, Mild, RASH, 09/12/17) Reported Meds & Prescriptions Reported Meds & Active Scripts Active Reported Duoneb (Ipratropium-Albuterol Neb) 0.5-2.5 Mg/3 Ml Neb 1 Nebule INH Q4HR NEB Aspirin Low Dose (Aspirin) 81 Mg Chew 81 Mg CHEW DAILY Trazodone (Trazodone HCl) 100 Mg Tablet 200 Mg PO HS Effexor (Venlafaxine HCl) 37.5 Mg Tab 37.5 Mg PO HS Tamsulosin (Tamsulosin HCl) 0.4 Mg Cap 0.4 Mg PO HS Simvastatin 40 Mg Tab 40 Mg PO HS Proair Hfa 8.5 GM Inh (Albuterol Sulfate) 90 Mcg/Act Aer 2 Puff INH Q4-6H PRN 108 mcg/actuation Metoprolol Succinate ER 24 HR (Metoprolol Succinate) 50 Mg Tab 50 Mg PO DAILY Symbicort Inh (Budesonide/Formoterol Fumarate) 160-4.5 Mcg/Act Aero 2 Puff INH Q12HR Review of Systems Except as stated in HPI: all other systems reviewed are Neg Physical Exam Narrative GENERAL: 72yo M in moderate distress. SKIN: Focused skin assessment warm/dry. HEAD: Atraumatic. Normocephalic. EYES: Pupils equal and round. No scleral icterus. No injection or drainage. ENT: No nasal bleeding or discharge. Mucous membranes pink and moist. NECK: Trachea midline. No JVD. CARDIOVASCULAR: Mild tachycardia at 108bpm. No murmur appreciated. RESPIRATORY: + accessory muscle use. Decreased breath sounds bilaterally in lower lobes. O2 sat 88% on 2.5L NC, 92% on 4L NC. GASTROINTESTINAL: Abdomen soft, non-tender, nondistended. MUSCULOSKELETAL: No obvious deformities. No clubbing. No cyanosis. No edema. NEUROLOGICAL: Awake and alert. No obvious cranial nerve deficits. Motor grossly within normal limits. Normal speech. PSYCHIATRIC: Appropriate mood and affect; insight and judgment normal. Data Data Last Documented VS Vital Signs Date Time Temp Pulse Resp B/P (MAP) Pulse Ox O2 Delivery O2 Flow Rate FiO2 09/12/17 10:30 98 20 96/52 (67) 95 Nasal Cannula 4.00 09/12/17 08:56 97.7 Orders Orders Complete Blood Count With Diff (09/12/17 08:38) Basic Metabolic Panel (Bmp) (09/12/17 08:38) B-Type Natriuretic Peptide (09/12/17 08:38) Act Partial Throm Time (Ptt) (09/12/17 08:38) Prothrombin Time / Inr (Pt) (09/12/17 08:38) Magnesium (Mg) (09/12/17 08:38) Troponin I (09/12/17 08:38) Blood Culture (09/12/17 08:38) Chest, Single Ap (09/12/17 08:38) Albuterol-Ipratropium Neb (Duoneb Neb) (09/12/17 08:45) Lactic Acid Sepsis Protocol (09/12/17 08:38) Sodium Chlor 0.9% 1000 Ml Inj (Ns 1000 M (09/12/17 09:30) Arterial Blood Gas (Abg) (09/12/17 ) Vancomycin Inj (Vancomycin Inj) (09/12/17 10:15) Aztreonam Inj (Azactam Inj) (09/12/17 10:15) Admit Order (Ed Use Only) (09/12/17 10:31) Labs Laboratory Tests Test 09/12/17 08:45 09/12/17 10:00 White Blood Count 12.8 TH/MM3 Red Blood Count 5.47 MIL/MM3 Hemoglobin 16.5 GM/DL Hematocrit 50.2 % Mean Corpuscular Volume 91.8 FL Mean Corpuscular Hemoglobin 30.2 PG Mean Corpuscular Hemoglobin Concent 32.9 % Red Cell Distribution Width 14.4 % Platelet Count 159 TH/MM3 Mean Platelet Volume 7.0 FL Neutrophils (%) (Auto) 87.0 % Lymphocytes (%) (Auto) 5.7 % Monocytes (%) (Auto) 4.5 % Eosinophils (%) (Auto) 1.2 % Basophils (%) (Auto) 1.6 % Neutrophils # (Auto) 11.1 TH/MM3 Lymphocytes # (Auto) 0.7 TH/MM3 Monocytes # (Auto) 0.6 TH/MM3 Eosinophils # (Auto) 0.2 TH/MM3 Basophils # (Auto) 0.2 TH/MM3 CBC Comment DIFF FINAL Differential Comment Prothrombin Time 11.1 SEC Prothromb Time International Ratio 1.0 RATIO Activated Partial Thromboplast Time 25.7 SEC Blood Urea Nitrogen 14 MG/DL Creatinine 1.20 MG/DL Random Glucose 101 MG/DL Calcium Level 8.8 MG/DL Magnesium Level 1.6 MG/DL Sodium Level 140 MEQ/L Potassium Level 4.4 MEQ/L Chloride Level 106 MEQ/L Carbon Dioxide Level 25.7 MEQ/L Anion Gap 8 MEQ/L Estimat Glomerular Filtration Rate 60 ML/MIN Lactic Acid Level 1.5 mmol/L Troponin I LESS THAN 0.02 NG/ML B-Type Natriuretic Peptide 32 PG/ML Blood Gas Puncture Site RT RADIAL Blood Gas Patient Temperature 98.6 Blood Gas HCO3 26 mmol/L Blood Gas Base Excess 1.7 mmol/L Blood Gas Oxygen Saturation 91 % Arterial Blood pH 7.44 Arterial Blood Partial Pressure CO2 38 mmHG Arterial Blood Partial Pressure O2 67 mmHG Arterial Blood Oxygen Content 20.0 Vol % Arterial Blood Carboxyhemoglobin 1.5 % Arterial Blood Methemoglobin 1.0 % Blood Gas Hemoglobin 15.6 G/DL Oxygen Delivery Device NASAL CANNULA Blood Gas Liter Flow 4 L/M MDM Medical Decision Making Medical Screen Exam Complete: Yes Emergency Medical Condition: Yes Interpretation(s) EKG: Sinus tachycardia at 106bpm. Normal axis. ST depression V2-V6.. TWI III. Differential Diagnosis COPD vs. pneumonia vs. ACS Narrative Course 72yo M with COPD here with sob for a day. Pt is requiring more than his usual amount of oxygen. Pt was already given methylprednisolone by EVAC, ordered another duonebs x3. Pt appears tachypneic. Labs reviewed, leukocytosis at 12.8. BMP unremarkable. Troponin negative. CXR showed left lower lobe infiltrate. Pt given vancomycin and aztreonam because of his allergies. Pt was hypotensive and tachycardic and improved after liter of NS IVF. Discussed with Dr. Rey and accepted to his service. Critical Care Narrative Aggregate critical care time was 40 minutes. Time to perform other separately billable procedures was not included in the critical care time. My time did not include minutes spent treating any other patients simultaneously or on activities that did not directly contribute to the patient's treatment. The services I provided to this patient were to treat and/or prevent clinically significant deterioration that could result in: respiratory distress and . I provided critical care services requiring my management, as noted below: Chart data review, documentation time, medication orders and management, vital sign assessments/reviewing monitor data, ordering and reviewing lab tests, ordering and interpreting/reviewing x-rays and diagnostic studies, care of the patient and discussion of the patient with the admitting physicians. Sepsis Criteria SIRS Criteria (2 or more): Heart rate over 90, RR > 20 or PaCO2 < 32, WBC > 29793, < 4000 or > 10% bands Sepsis Criteria (SIRS+source): Infect source susp/known Severe Sepsis (+one): Hypotension Diagnosis Primary Impression: Pneumonia Qualified Codes: J18.1 - Lobar pneumonia, unspecified organism Admitting Information Admitting Physician Requests: Lucia Torrez DO Sep 12, 2017 08:58
[2017-09-12 08:59] LABS: AUTOMATED NEUTROPHIL # 11.1 TH/MM3 (1.8-7.7); BASOPHIL # 0.2 TH/MM3 (0-0.2); BASOPHIL % 1.6 % (0.0-2.0); EOSINOPHIL # 0.2 TH/MM3 (0-0.4); EOSINOPHIL % 1.2 % (0.0-4.0); HEMATOCRIT 50.2 % (39.0-51.0); LYMPH % 5.7 % (9.0-44.0); LYMPHOCYTE # 0.7 TH/MM3 (1.0-4.8); MEAN CELL VOLUME 91.8 FL (80.0-100.0); MEAN CORPUSCULAR HEMOGLOBIN 30.2 PG (27.0-34.0); MEAN CORPUSCULAR HGB CONC 32.9 % (32.0-36.0); MONO % 4.5 % (0.0-8.0); PLATELET COUNT 159 TH/MM3 (150-450); RED BLOOD COUNT 5.47 MIL/MM3 (4.50-5.90); RED CELL DISTRIBUTION WIDTH 14.4 % (11.6-17.2); WHITE BLOOD COUNT 12.8 TH/MM3 (4.0-11.0)
[2017-09-12 09:00] LABS: HEMO FLAGS DIFF FINAL
[2017-09-12 09:06] LABS: CHLORIDE 106 MEQ/L (98-107); SODIUM (NA) 140 MEQ/L (136-145)
[2017-09-12 09:09] LABS: ANION GAP 8 MEQ/L (5-15); BICARBONATE 25.7 MEQ/L (21.0-32.0); BLOOD UREA NITROGEN 14 MG/DL (7-18); MAGNESIUM 1.6 MG/DL (1.5-2.5)
[2017-09-12 09:10] LABS: APTT (PATIENT) 25.7 SEC (24.3-30.1); POTASSIUM 4.4 MEQ/L (3.5-5.1); PROTHROMBIN TIME - PATIENT 11.1 SEC (9.8-11.6)
[2017-09-12 09:12] LABS: GLOMERULAR FILTRATION RATE 60 ML/MIN (>89)
[2017-09-12] MEDS ORDERED: SODIUM CHLOR 0.9% 1000 ML INJ 1,000 ML IV ONE (09:30)
--- NOTE | 2017-09-12 09:46 | RADRPT ---
EXAM DATE/TIME: 09/12/2017 09:15 [facility] COMPARISON: CHEST SINGLE AP, May 12, 2017, 18:18. INDICATIONS : Short of breath. MEDICAL HISTORY : Chronic obstructive pulmonary disease. Emphysema. Hypertension. SURGICAL HISTORY : Cholecystectomy. ENCOUNTER: Initial ACUITY: 2 days PAIN SCORE: 0/10 LOCATION: Bilateral chest FINDINGS: A single portable frontal view of the chest shows chronic interstitial changes within the lung bases. A vague parenchymal consolidation is seen within the lateral left lung base. This is new. No effusio ns. Heart is normal in size. Bony structures are unremarkable. CONCLUSION: 1. Left lower lobe infiltrate. 2. Underlying chronic interstitial changes. Sreekanth Muller Jr., MD on September 12, 2017 at 9:43 Board Certified Radiologist. This report was verified electronically.
[2017-09-12 10:09] LABS: BLOOD GAS BASE EXCESS 1.7 mmol/L (-2-2); BLOOD GAS CARBOXYHEMOGLOBIN 1.5 % (0-4); BLOOD GAS HCO3 26 mmol/L (22-26); BLOOD GAS O2 HGB SATURATION 91 % (90-100); BLOOD GAS PCO2 38 mmHG (38-42); BLOOD GAS PO2 67 mmHG (61-120); BLOOD GAS TOTAL HGB 15.6 G/DL (12.0-16.0); CRITICAL VALUE NO; DRAW SITE RT RADIAL; LITER FLOW 4 L/M; NUMBER OF ARTERIAL PUNCTURES 1; OXYGEN DEVICE NASAL CANNULA; STAT NO; TEMP CORR TO 98.6; ULNAR PULSE PRESENT
[2017-09-12] MEDS ORDERED: VANCOMYCIN INJ 1,000 MG in SODIUM CHLOR 0.9% 250 ML INJ 250 ML IV ONE (10:15)
[2017-09-12] MEDS ORDERED: AZTREONAM INJ 1,000 MG in SODIUM CHLORIDE 0.9% INJ 100 ML IV ONE (10:15)
[2017-09-12] MEDS ORDERED: ONDANSETRON HCL 4 MG/2 ML VIAL IV PUSH PRN (10:45)
[2017-09-12] MEDS ORDERED: SODIUM CHLORIDE 0.9% FLUSH 10 ML FLUSH IV FLUSH PRN (10:45)
--- NOTE | 2017-09-12 14:47 | HHI.HP ---
[facility] Service [facility] Primary Care Physician Jessica Yeboah MD Admission Diagnosis Pneumonia Diagnoses: (1) Hypotension (2) Dehydration (3) Physical deconditioning (4) Pneumonia (5) Acute and chronic respiratory failure with hypoxia (6) COPD (chronic obstructive pulmonary disease) Travel History International Travel<30 Days: No Contact w/Intl Traveler <30 Da: No Traveled to Known Affected Are: No History of Present Illness This is a very pleasant 72-year-old male with past medical history of COPD on 2-1/2 L of oxygen at home, previous pneumonia, who presents to the ER with 2 day history of shortness of breath and worsening cough. Symptoms began yesterday with shortness of breath. He also was having a cough which was worse than normal. Nonproductive but he does feel like he needs to bring sputum up. Patient denies chills but stated he did feel warm as if he was going to have a fever. Patient also complains of fatigue. His balance also little unsteady yesterday. Denies any recent falls. Denies sore throat, runny nose, chest pain , abdominal pain, nausea or vomiting. Symptoms moderate. No provocative or palliative factors. The emergency room he was found to be tachycardic at 114 and hypotensive [id number]. However lactic acid was not elevated. He was placed on 4 L nasal cannula oxygen. Chest x-ray reveals a left lower lobe infiltrate. He was given aztreonam and vancomycin. Patient states his breathing feels better. He is currently on 3 L of oxygen. His main complaint is feeling tired and fatigued. He states he's not been eating or drinking well and feels dehydrated. Review of Systems Constitutional: COMPLAINS OF: Fatigue, Fever, DENIES: Chills Ears, nose, mouth, throat: DENIES: Throat pain, Odynophagia Respiratory: COMPLAINS OF: Cough, Shortness of breath, DENIES: Sputum production Cardiovascular: DENIES: Chest pain, Palpitations Gastrointestinal: DENIES: Abdominal pain, Vomiting Genitourinary: DENIES: Urgency, Dysuria Musculoskeletal: DENIES: Muscle aches, Stiffness Integumentary: DENIES: Pruritus, Rash Hematologic/lymphatic: DENIES: Lymphadenopathy Neurologic: DENIES: Headache, Localized weakness Psychiatric: DENIES: Anxiety, Confusion Past Family Social History Past Medical History COPD with chronic respiratory failure on 2 and half liters oxygen BPH Anxiety and depression Peripheral arterial disease status post left CEA Previous benign pulmonary nodule Previous pneumonia Past Surgical History Left CVA in 2006 Cholecystectomy Hernia Reported Medications Allergies Coded Allergies Type Severity Reaction Last Updated Verified levofloxacin Allergy Mild ITCHING 09/12/17 No penicillin G Allergy Mild RASH 09/12/17 No Active Scripts Medications Dose Route/Sig Max Daily Dose Days Date Category Dose Instructions Duoneb (Ipratropium-Albuterol Neb) 0.5-2.5 Mg/3 Ml Neb 1 Nebule INH Q4HR NEB 09/12/17 Reported Aspirin Low Dose (Aspirin) 81 Mg Chew 81 Mg CHEW DAILY 05/12/17 Reported Trazodone (Trazodone HCl) 100 Mg Tablet 200 Mg PO HS 05/12/17 Reported Effexor (Venlafaxine HCl) 37.5 Mg Tab 37.5 Mg PO DAILY 01/04/17 Reported Tamsulosin (Tamsulosin HCl) 0.4 Mg Cap 0.4 Mg PO HS 01/04/17 Reported Simvastatin 40 Mg Tab 40 Mg PO HS 01/04/17 Reported Proair Hfa 8.5 GM Inh (Albuterol Sulfate) 90 Mcg/Act Aer 2 Puff INH Q4-6H PRN 01/04/17 Reported 108 mcg/actuation Metoprolol Succinate ER 24 HR (Metoprolol Succinate) 50 Mg Tab 50 Mg PO DAILY 01/04/17 Reported Symbicort Inh (Budesonide/Formoterol Fumarate) 160-4.5 Mcg/Act Aero 2 Puff INH Q12HR 01/04/17 Reported Allergies: Coded Allergies: levofloxacin (Unverified Allergy, Mild, ITCHING, 09/12/17) penicillin G (Unverified Allergy, Mild, RASH, 09/12/17) Family History Reviewed and noncontributory Social History He quit smoking in 2005. No alcohol use. Physical Exam Vital Signs Vital Signs Date Time Temp Pulse Resp B/P (MAP) Pulse Ox O2 Delivery O2 Flow Rate FiO2 09/12/17 12:45 96.3 90 22 112/67 (82) 94 09/12/17 11:57 09/12/17 10:30 98 20 96/52 (67) 95 Nasal Cannula 4.00 09/12/17 09:40 111 22 104/63 (77) 91 Nasal Cannula 4.00 09/12/17 08:56 97.7 106 24 95/68 (77) 93 Nasal Cannula 4.00 09/12/17 08:53 93 Nasal Cannula 4.00 09/12/17 08:51 93 Nasal Cannula 4.00 09/12/17 08:44 92 Nasal Cannula 4.00 09/12/17 08:33 98.3 114 28 84/57 (66) 88 Physical Exam GENERAL: Lean elderly and frail-appearing male patient in no significant distress. SKIN: No rashes. Small ecchymosis on right wrist. Cool and dry. HEAD: Atraumatic. Normocephalic. EYES: Pupils equal round and reactive. Extraocular motions intact. No scleral icterus. No injection or drainage. ENT: Throat without erythema, tonsillar hypertrophy or exudate. Uvula midline. Airway patent. NECK: Trachea midline. No JVD or lymphadenopathy. CARDIOVASCULAR: Regular rate and rhythm without murmurs, gallops, or rubs. RESPIRATORY: Clear to auscultation. Breath sounds equal bilaterally. No wheezes , rales, or rhonchi. No increased work of breathing. GASTROINTESTINAL: Abdomen soft, non-tender, nondistended. MUSCULOSKELETAL: Extremities without edema. NEUROLOGICAL: Awake and alert and oriented. Motor and sensory grossly within normal limits. Normal speech. Laboratory Laboratory Tests Test 09/12/17 08:45 09/12/17 10:00 White Blood Count 12.8 Red Blood Count 5.47 Hemoglobin 16.5 Hematocrit 50.2 Mean Corpuscular Volume 91.8 Mean Corpuscular Hemoglobin 30.2 Mean Corpuscular Hemoglobin Concent 32.9 Red Cell Distribution Width 14.4 Platelet Count 159 Mean Platelet Volume 7.0 Neutrophils (%) (Auto) 87.0 Lymphocytes (%) (Auto) 5.7 Monocytes (%) (Auto) 4.5 Eosinophils (%) (Auto) 1.2 Basophils (%) (Auto) 1.6 Neutrophils # (Auto) 11.1 Lymphocytes # (Auto) 0.7 Monocytes # (Auto) 0.6 Eosinophils # (Auto) 0.2 Basophils # (Auto) 0.2 CBC Comment DIFF FINAL Differential Comment Prothrombin Time 11.1 Prothromb Time International Ratio 1.0 Activated Partial Thromboplast Time 25.7 Blood Urea Nitrogen 14 Creatinine 1.20 Random Glucose 101 Calcium Level 8.8 Magnesium Level 1.6 Sodium Level 140 Potassium Level 4.4 Chloride Level 106 Carbon Dioxide Level 25.7 Anion Gap 8 Estimat Glomerular Filtration Rate 60 Lactic Acid Level 1.5 Troponin I LESS THAN 0.02 B-Type Natriuretic Peptide 32 Blood Gas Puncture Site RT RADIAL Blood Gas Patient Temperature 98.6 Blood Gas HCO3 26 Blood Gas Base Excess 1.7 Blood Gas Oxygen Saturation 91 Arterial Blood pH 7.44 Arterial Blood Partial Pressure CO2 38 Arterial Blood Partial Pressure O2 67 Arterial Blood Oxygen Content 20.0 Arterial Blood Carboxyhemoglobin 1.5 Arterial Blood Methemoglobin 1.0 Blood Gas Hemoglobin 15.6 Oxygen Delivery Device NASAL CANNULA Blood Gas Liter Flow 4 Date/Time Source Procedure Growth Status 09/12/17 08:45 Blood Peripheral Aerobic Blood Culture Pending Received 09/12/17 08:45 Blood Peripheral Anaerobic Blood Culture Pending Received Result Diagram: 09/12/17 0845 09/12/17 0845 Imaging Last Impressions Chest X-Ray 09/12/17 0838 Signed Impressions: Service Date/Time: August 09:15 - CONCLUSION: 1. Left lower lobe infiltrate. 2. Underlying chronic interstitial changes. MD Wade Lino Jr. VTE Risk Assessment Wade VTE Risk Assessment: Mod/High Risk (score >= 2) Caprini Risk Assessment Model Point Value = 1 Point Value = 2 Point Value = 3 Point Value = 5 Age 41-60 Minor surgery BMI > 25 kg/m2 Swollen legs Varicose veins or History of unexplained or recurrent spontaneous Oral contraceptives or hormone replacement Sepsis (< 1 month) Serious lung disease, including pneumonia (< 1 month) Abnormal pulmonary function Acute myocardial infarction Congestive heart failure (< 1 month) History of inflammatory bowel disease Medical patient at bed rest Age 61-74 Arthroscopic surgery Major open surgery (> 45 min) Laparoscopic surgery (> 45 min) Malignancy Confined to bed (> 72 hours) Immobilizing plaster cast Central venous access Age >= 75 History of VTE Family history of VTE Factor V Leiden Prothrombin [id number] Lupus anticoagulant Anticardiolipin antibodies Elevated serum homocysteine Heparin-induced thrombocytopenia Other congenital or acquired thrombophilia Stroke (< 1 month) Elective arthroplasty Hip, pelvis, or leg fracture Acute spinal cord injury (< 1 month) Prophylaxis Regimen Total Risk Factor Score Risk Level Prophylaxis Regimen 0-1 Low Early ambulation 2 Moderate Order ONE of the following: *Sequential Compression Device (SCD) *Heparin 5000 units SQ BID 3-4 Higher Order ONE of the following medications: *Heparin 5000 units SQ TID *Enoxaparin/Lovenox 40 mg SQ daily (WT < 150 kg, CrCl > 30 mL/min) *Enoxaparin/Lovenox 30 mg SQ daily (WT < 150 kg, CrCl > 10-29 mL/min) *Enoxaparin/Lovenox 30 mg SQ BID (WT < 150 kg, CrCl > 30 mL/min) AND/OR *Sequential Compression Device (SCD) 5 or more Highest Order ONE of the following medications: *Heparin 5000 units SQ TID (Preferred with Epidurals) *Enoxaparin/Lovenox 40 mg SQ daily (WT < 150 kg, CrCl > 30 mL/min) *Enoxaparin/Lovenox 30 mg SQ daily (WT < 150 kg, CrCl > 10-29 mL/min) *Enoxaparin/Lovenox 30 mg SQ BID (WT < 150 kg, CrCl > 30 mL/min) AND *Sequential Compression Device (SCD) Assessment and Plan Assessment and Plan Left lower lobe pneumonia with acute on chronic respiratory failure - initially requiring 4 L of oxygen now weaned down to 3 L of oxygen - was hypotensive however lactic acid is not elevated. Suspect he is slightly dehydrated. We'll continue him on Azactam and continue Zithromax. Hold metoprolol. Continue oxygen via nasal cannula and duo nebs. Will give gentle IV fluids overnight. Monitor for any fluid overload or worsening distress. COPD with chronic respiratory failure on 2 and half liters oxygen - does not appear to have acute exacerbation. We'll continue duo nebs and oxygen. BPH - continue Flomax. Anxiety and depression - continue Effexor and Xanax. Peripheral arterial disease status post left CEA - continue aspirin. DVT prophylaxis with Lovenox 30 mg subcutaneous daily. Martha Boston MD Sep 12, 2017 14:47
[2017-09-12] MEDS: ENOXAPARIN SODIUM 30 MG/0.3 ML SYRINGE SQ SCH (17:50)
[2017-09-12] MEDS: AZTREONAM INJ 2,000 MG in SODIUM CHLORIDE 0.9% INJ 100 ML IV SCH (17:51)
[2017-09-12] MEDS: RESP: ALBUTEROL 2.5 MG/IPRATROPIUM 0.5 MG NEB (PRN) INH (20:54)
[2017-09-12] MEDS: BUDESONIDE-FORMOTEROL 160/4.5 MCG INHALER INH SCH (22:53)
[2017-09-12] MEDS: traZODone HCL 100 MG TAB PO SCH (22:54)
[2017-09-12] MEDS: SODIUM CHLORIDE 0.9% FLUSH 10 ML FLUSH IV FLUSH SCH (22:55)
[2017-09-12] MEDS: TAMSULOSIN HCL 0.4 MG CAP PO SCH (22:55)
[2017-09-12] MEDS: PRAVASTATIN SOD 40 MG TAB PO SCH (22:55)
[2017-09-12] MEDS ORDERED: VENLAFAXINE HCL XR 37.5 MG CAP PO SCH (23:00)
[2017-09-13] VITALS (8 sets, daily range): BP systolic 111–142; BP diastolic 72–79; PULSE 62–84; RESP 18–20; TEMP 95.8–97.8; O2SAT 92–96
[2017-09-13] MEDS: AZTREONAM INJ 2,000 MG in SODIUM CHLORIDE 0.9% INJ 100 ML IV SCH ×3 (02:14→16:43)
[2017-09-13 06:37] LABS: AUTOMATED NEUTROPHIL # 12.9 TH/MM3 (1.8-7.7); BASOPHIL % 0.2 % (0.0-2.0); HEMATOCRIT 43.1 % (39.0-51.0); LYMPH % 4.5 % (9.0-44.0); LYMPHOCYTE # 0.6 TH/MM3 (1.0-4.8); MEAN CELL VOLUME 90.4 FL (80.0-100.0); MEAN CORPUSCULAR HEMOGLOBIN 29.9 PG (27.0-34.0); MEAN CORPUSCULAR HGB CONC 33.1 % (32.0-36.0); MONO % 3.7 % (0.0-8.0); NEUT % 91.6 % (16.0-70.0); PLATELET COUNT 152 TH/MM3 (150-450); RED BLOOD COUNT 4.77 MIL/MM3 (4.50-5.90); RED CELL DISTRIBUTION WIDTH 13.6 % (11.6-17.2); WHITE BLOOD COUNT 14.1 TH/MM3 (4.0-11.0)
[2017-09-13 06:45] LABS: HEMO FLAGS DIFF FINAL; POTASSIUM 3.9 MEQ/L (3.5-5.1)
[2017-09-13 06:49] LABS: BICARBONATE 25.5 MEQ/L (21.0-32.0)
[2017-09-13] MEDS: RESP: ALBUTEROL 2.5 MG/IPRATROPIUM 0.5 MG NEB (PRN) INH ×2 (07:34→19:39)
[2017-09-13] MEDS: ASPIRIN 81 MG CHEW TAB CHEW SCH (08:30)
[2017-09-13] MEDS: METOPROLOL SUCCINATE 50 MG EXTENDED RELEASE TAB PO SCH (08:31)
[2017-09-13] MEDS: BUDESONIDE-FORMOTEROL 160/4.5 MCG INHALER INH SCH ×2 (08:31→20:44)
[2017-09-13] MEDS: SODIUM CHLORIDE 0.9% FLUSH 10 ML FLUSH IV FLUSH SCH ×2 (08:31→20:46)
[2017-09-13] MEDS: AZITHROMYCIN 250 MG TAB PO SCH (08:31)
--- NOTE | 2017-09-13 10:07 | HHI.PR ---
Subjective Remarks Dyspnea improved and is at baseline. Cough improved. Main complaint is feeling tired. Objective Vitals Vital Signs Date Time Temp Pulse Resp B/P (MAP) Pulse Ox O2 Delivery O2 Flow Rate FiO2 09/13/17 09:48 Nasal Cannula 3.00 09/13/17 08:00 96.9 80 18 142/77 (98) 92 09/13/17 07:39 94 Nasal Cannula 3.00 09/13/17 04:00 96.0 79 20 111/72 (85) 95 09/13/17 00:00 95.8 84 20 112/75 (87) 94 09/12/17 21:00 Nasal Cannula 3.00 09/12/17 20:55 95 Nasal Cannula 3.00 09/12/17 20:00 96.1 72 20 109/58 (75) 95 09/12/17 16:00 96.2 82 18 121/67 (85) 94 09/12/17 12:45 96.3 90 22 112/67 (82) 94 09/12/17 11:57 09/12/17 10:30 98 20 96/52 (67) 95 Nasal Cannula 4.00 I/O 09/12/17 09/12/17 09/12/17 09/13/17 09/13/17 09/13/17 07:00 15:00 23:00 07:00 15:00 23:00 Intake Total 1360 ml 200 ml 780 ml Output Total 550 ml Balance 1360 ml 200 ml 230 ml Intake Oral 680 ml IV Total 1360 ml 200 ml 100 ml Output Urine Total 550 ml # Voids 1 # Bowel Movements 0 Result Diagram: 09/13/17 0609/13/17 0604 Objective Remarks GENERAL: Lean elderly and frail-appearing male patient in no significant distress. SKIN: No rashes. Small ecchymosis on right wrist. Cool and dry. HEAD: Atraumatic. Normocephalic. EYES: Pupils equal round and reactive. Extraocular motions intact. No scleral icterus. No injection or drainage. ENT: Throat without erythema, tonsillar hypertrophy or exudate. Uvula midline. Airway patent. NECK: Trachea midline. No JVD or lymphadenopathy. CARDIOVASCULAR: Regular rate and rhythm without murmurs, gallops, or rubs. RESPIRATORY: Clear to auscultation. Breath sounds equal bilaterally. No wheezes , rales, or rhonchi. No increased work of breathing. GASTROINTESTINAL: Abdomen soft, non-tender, nondistended. MUSCULOSKELETAL: Extremities without edema. NEUROLOGICAL: Awake and alert and oriented. Motor and sensory grossly within normal limits. Normal speech. A/P Problem List: (1) Pneumonia ICD Code: J18.9 - Pneumonia, unspecified organism Status: Acute (2) Hypotension ICD Code: I95.9 - Hypotension, unspecified Status: Resolved (3) Dehydration ICD Code: E86.0 - Dehydration (4) Physical deconditioning ICD Code: R53.81 - Other malaise Status: Acute (5) Acute and chronic respiratory failure with hypoxia ICD Code: J96.21 - Acute and chronic respiratory failure with hypoxia Status: Acute (6) COPD (chronic obstructive pulmonary disease) ICD Code: J44.9 - COPD (chronic obstructive pulmonary disease) Status: Chronic Assessment and Plan Left lower lobe pneumonia with acute on chronic respiratory failure - initially requiring 4 L of oxygen now weaned down to 3 L of oxygen - stable overnight. We' ll continue him on Azactam and continue Zithromax. Hold metoprolol. Continue oxygen via nasal cannula and duo nebs. Hypotension - resolved s/p IVF hydration. cont to hold metoprololg for now. COPD with chronic respiratory failure on 2 and half liters oxygen - does not appear to have acute exacerbation. We'll continue duo nebs and oxygen. BPH - continue Flomax. Anxiety and depression - continue Effexor and Xanax. Peripheral arterial disease status post left CEA - continue aspirin. DVT prophylaxis with Lovenox 30 mg subcutaneous daily. Problem Qualifiers (1) Pneumonia: Martha Boston MD Sep 13, 2017 10:07
[2017-09-13] MEDS: FLUTICASONE PROPIONATE 50 MCG/ACT 16 GM NASAL SPRAY EACH NARE SCH (11:42)
[2017-09-13] MEDS: guaiFENesin E.R. 600 MG TAB PO SCH ×2 (11:42→20:44)
[2017-09-13] MEDS: ENOXAPARIN SODIUM 30 MG/0.3 ML SYRINGE SQ SCH (11:42)
[2017-09-13] MEDS: LORATADINE/PSEUDOEPHEDRINE 5 MG/120 MG TAB PO SCH ×2 (11:42→20:45)
--- NOTE | 2017-09-13 16:34 | EKG ---
Date Performed: 09/12/2017 Time Performed: 08:39:05 PTAGE: 72 years EKG: SINUS TACHYCARDIA MINIMAL ST DEPRESSION ABNORMAL RHYTHM ECG Compared to PREVIOUS TRACING , there is some improvement in the T-wave changes anteriorly. PREVIOUS T RACIN05/12/2017 17.05 DOCTOR: Daniel Chambers Interpretating Date/Time 09/13/2017 16:33:13
[2017-09-13] MEDS: PRAVASTATIN SOD 40 MG TAB PO SCH (20:44)
[2017-09-13] MEDS: traZODone HCL 100 MG TAB PO SCH (20:44)
[2017-09-13] MEDS: VENLAFAXINE HCL XR 37.5 MG CAP PO SCH (20:45)
[2017-09-13] MEDS: TAMSULOSIN HCL 0.4 MG CAP PO SCH (20:45)
[2017-09-14] VITALS (7 sets, daily range): BP systolic 103–161; BP diastolic 58–74; PULSE 60–68; RESP 16–20; TEMP 96.4–98.2; O2SAT 94–97
[2017-09-14] MEDS: AZTREONAM INJ 2,000 MG in SODIUM CHLORIDE 0.9% INJ 100 ML IV SCH ×3 (03:44→17:38)
[2017-09-14] MEDS: RESP: ALBUTEROL 2.5 MG/IPRATROPIUM 0.5 MG NEB (PRN) INH ×2 (07:34→19:21)
[2017-09-14] MEDS: AZITHROMYCIN 250 MG TAB PO SCH (08:31)
[2017-09-14] MEDS: ASPIRIN 81 MG CHEW TAB CHEW SCH (08:31)
[2017-09-14] MEDS: guaiFENesin E.R. 600 MG TAB PO SCH (08:32)
[2017-09-14] MEDS: METOPROLOL SUCCINATE 50 MG EXTENDED RELEASE TAB PO SCH (08:32)
[2017-09-14] MEDS: BUDESONIDE-FORMOTEROL 160/4.5 MCG INHALER INH SCH ×2 (08:33→21:12)
[2017-09-14] MEDS: FLUTICASONE PROPIONATE 50 MCG/ACT 16 GM NASAL SPRAY EACH NARE SCH (08:33)
[2017-09-14] MEDS: SODIUM CHLORIDE 0.9% FLUSH 10 ML FLUSH IV FLUSH SCH ×2 (08:34→21:13)
[2017-09-14] MEDS: LORATADINE/PSEUDOEPHEDRINE 5 MG/120 MG TAB PO SCH (08:35)
[2017-09-14] MEDS: ALPRAZolam 0.5 MG TAB PO PRN (08:39)
--- NOTE | 2017-09-14 12:54 | HHI.PR ---
Subjective Remarks Written by Eva Davila, acting as scribe for Dr. Boston on 09/14/17 at 12: 49. Follow up pneumonia, dyspnea and cough. Patient seen and examined, sitting up on side of bed on supplemental O2. States he received all of his medications at once last evening and has made him dizzy with complaints of headache. States he feels overall groggy. Eating well. Requesting Claritin and Mucinex be dc'd due to side effects. Objective Vitals Vital Signs Date Time Temp Pulse Resp B/P (MAP) Pulse Ox O2 Delivery O2 Flow Rate FiO2 09/14/17 08:15 Nasal Cannula 3.00 09/14/17 07:37 96 Nasal Cannula 3.00 09/14/17 07:30 96.4 63 20 161/74 (103) 96 09/14/17 00:00 98.2 68 20 130/58 (82) 95 09/13/17 21:00 Nasal Cannula 3.00 09/13/17 20:00 97.8 74 20 133/72 (92) 94 09/13/17 19:39 96 Nasal Cannula 3.00 09/13/17 16:00 96.9 62 20 134/79 (97) 94 I/O 09/13/17 09/13/17 09/13/17 09/14/17 09/14/17 09/14/17 07:00 15:00 23:00 07:00 15:00 23:00 Intake Total 780 ml 100 ml 100 ml Output Total 550 ml 200 ml 700 ml Balance 230 ml 100 ml -200 ml -600 ml Intake Oral 680 ml IV Total 100 ml 100 ml 100 ml Output Urine Total 550 ml 200 ml 700 ml # Voids 1 # Bowel Movements 0 Result Diagram: 09/13/17 0604 09/13/17 0604 Imaging Last Impressions Chest X-Ray 09/12/17 0838 Signed Impressions: Service Date/Time: August 09:15 - CONCLUSION: 1. Left lower lobe infiltrate. 2. Underlying chronic interstitial changes. Sreekanth Muller Jr., MD Objective Remarks GENERAL: Lean elderly and frail-appearing male patient in no significant distress. On Supplemental O2. SKIN: No rashes. Small ecchymosis on right wrist. Warm and dry. HEAD: Atraumatic. Normocephalic. EYES: Pupils equal round and reactive. Extraocular motions intact. No scleral icterus. No injection or drainage. ENT: Throat without erythema, tonsillar hypertrophy or exudate. Uvula midline. Airway patent. NECK: Trachea midline. No JVD or lymphadenopathy. CARDIOVASCULAR: Regular rate and rhythm without murmurs, gallops, or rubs. RESPIRATORY: Clear to auscultation. Breath sounds equal bilaterally. No wheezes , rales, or rhonchi. No increased work of breathing. GASTROINTESTINAL: Abdomen soft, non-tender, nondistended. MUSCULOSKELETAL: Extremities without edema. NEUROLOGICAL: Awake and alert and oriented. Motor and sensory grossly within normal limits. Normal speech. A/P Problem List: (1) Pneumonia ICD Code: J18.9 - Pneumonia, unspecified organism Status: Acute (2) Hypotension ICD Code: I95.9 - Hypotension, unspecified Status: Resolved (3) Dehydration ICD Code: E86.0 - Dehydration (4) Physical deconditioning ICD Code: R53.81 - Other malaise Status: Acute (5) Acute and chronic respiratory failure with hypoxia ICD Code: J96.21 - Acute and chronic respiratory failure with hypoxia Status: Acute (6) COPD (chronic obstructive pulmonary disease) ICD Code: J44.9 - COPD (chronic obstructive pulmonary disease) Status: Chronic Assessment and Plan Left lower lobe pneumonia with acute on chronic respiratory failure - initially requiring 4 L of oxygen now weaned down to 3 L of oxygen - stable overnight. We' ll continue him on Azactam and continue Zithromax. Continue oxygen via nasal cannula and duo nebs. Nasal congestion - Has not improved. Patient requesting Claritin and Mucinex to be dc'd due to side effects. Will continue Flonase. Hypotension - resolved s/p IVF hydration. COPD with chronic respiratory failure on 3L oxygen - does not appear to have acute exacerbation. We'll continue duo nebs and oxygen. BPH - continue Flomax. Anxiety and depression - continue Effexor and Xanax. Peripheral arterial disease status post left CEA - continue aspirin. DVT prophylaxis with Lovenox 30 mg subcutaneous daily. Discharge Planning Possible DC tomorrow. Attending Statement This note was transcribed by marvin Davila. I, Dr. Martha Boston personally performed the history, physical exam, and medical decision making; and confirmed the accuracy of the information in the transcribed note. Authenticated by Dr. Martha Boston on 09/14/17 at 14:36. Problem Qualifiers (1) Pneumonia: Eva Davila Sep 14, 2017 12:54 Martha Boston MD Sep 14, 2017 14:37
[2017-09-14] MEDS: ENOXAPARIN SODIUM 30 MG/0.3 ML SYRINGE SQ SCH (13:06)
[2017-09-14] MEDS: traZODone HCL 100 MG TAB PO SCH (21:13)
[2017-09-14] MEDS: TAMSULOSIN HCL 0.4 MG CAP PO SCH (21:14)
[2017-09-14] MEDS: PRAVASTATIN SOD 40 MG TAB PO SCH (21:14)
[2017-09-14] MEDS: VENLAFAXINE HCL XR 37.5 MG CAP PO SCH (21:14)
[2017-09-15 00:40] VITALS: BP 106/62; PULSE 71; RESP 18; TEMP 98; O2SAT 97
[2017-09-15] MEDS: AZTREONAM INJ 2,000 MG in SODIUM CHLORIDE 0.9% INJ 100 ML IV SCH ×2 (02:33→09:15)
[2017-09-15] MEDS: RESP: ALBUTEROL 2.5 MG/IPRATROPIUM 0.5 MG NEB (PRN) INH (07:40)
[2017-09-15 07:42] VITALS: O2SAT 93
[2017-09-15 07:50] VITALS: BP 133/78; PULSE 74; RESP 20; TEMP 96.5; O2SAT 94
[2017-09-15] MEDS: FLUTICASONE PROPIONATE 50 MCG/ACT 16 GM NASAL SPRAY EACH NARE SCH (09:00)
[2017-09-15] MEDS: BUDESONIDE-FORMOTEROL 160/4.5 MCG INHALER INH SCH (09:14)
[2017-09-15] MEDS: SODIUM CHLORIDE 0.9% FLUSH 10 ML FLUSH IV FLUSH SCH (09:14)
[2017-09-15] MEDS: AZITHROMYCIN 250 MG TAB PO SCH (09:15)
[2017-09-15] MEDS: METOPROLOL SUCCINATE 50 MG EXTENDED RELEASE TAB PO SCH (09:15)
[2017-09-15] MEDS: ASPIRIN 81 MG CHEW TAB CHEW SCH (09:15)
[2017-09-15] MEDS: ALPRAZolam 0.5 MG TAB PO PRN (09:18)
[2017-09-15 11:50] VITALS: BP 129/77; PULSE 67; RESP 20; TEMP 97.5
[2017-09-15] MEDS: ENOXAPARIN SODIUM 30 MG/0.3 ML SYRINGE SQ SCH (12:46)
--- NOTE | 2017-09-15 12:57 | HHI.DS ---
Discharge Summary Admission Date Sep 12, 2017 at 10:32 Discharge Date: Sep 15, 2017 Admitting Diagnosis Pneumonia (1) Pneumonia ICD Code: J18.9 - Pneumonia, unspecified organism Status: Acute (2) Hypotension ICD Code: I95.9 - Hypotension, unspecified Status: Resolved (3) Dehydration ICD Code: E86.0 - Dehydration (4) Physical deconditioning ICD Code: R53.81 - Other malaise Status: Acute (5) Acute and chronic respiratory failure with hypoxia ICD Code: J96.21 - Acute and chronic respiratory failure with hypoxia Status: Acute (6) COPD (chronic obstructive pulmonary disease) ICD Code: J44.9 - COPD (chronic obstructive pulmonary disease) Status: Chronic Procedures None Brief History - From Admission This is a very pleasant 72-year-old male with past medical history of COPD on 2-1/2 L of oxygen at home, previous pneumonia, who presents to the ER with 2 day history of shortness of breath and worsening cough. Symptoms began yesterday with shortness of breath. He also was having a cough which was worse than normal. Nonproductive but he does feel like he needs to bring sputum up. Patient denies chills but stated he did feel warm as if he was going to have a fever. Patient also complains of fatigue. His balance also little unsteady yesterday. Denies any recent falls. Denies sore throat, runny nose, chest pain , abdominal pain, nausea or vomiting. Symptoms moderate. No provocative or palliative factors. The emergency room he was found to be tachycardic at 114 and hypotensive 8457. However lactic acid was not elevated. He was placed on 4 L nasal cannula oxygen. Chest x-ray reveals a left lower lobe infiltrate. He was given aztreonam and vancomycin. Patient states his breathing feels better. He is currently on 3 L of oxygen. His main complaint is feeling tired and fatigued. He states he's not been eating or drinking well and feels dehydrated. CBC/BMP: 09/13/17 0604 09/13/17 0604 Significant Findings Laboratory Tests Test 09/13/17 06:04 White Blood Count 14.1 TH/MM3 (4.0-11.0) Neutrophils (%) (Auto) 91.6 % (16.0-70.0) Lymphocytes (%) (Auto) 4.5 % (9.0-44.0) Neutrophils # (Auto) 12.9 TH/MM3 (1.8-7.7) Lymphocytes # (Auto) 0.6 TH/MM3 (1.0-4.8) Blood Urea Nitrogen 20 MG/DL (7-18) Random Glucose 117 MG/DL (74-106) Calcium Level 8.3 MG/DL (8.5-10.1) Chloride Level 108 MEQ/L (98-107) Estimat Glomerular Filtration Rate 79 ML/MIN (>89) Imaging Last Impressions Chest X-Ray 09/12/17 0838 Signed Impressions: Service Date/Time: , September 12, 2017 09:15 - CONCLUSION: 1. Left lower lobe infiltrate. 2. Underlying chronic interstitial changes. Sreekanth Muller Jr., MD PE at Discharge GENERAL: Lean elderly and frail-appearing male patient in no significant distress. On Supplemental O2. SKIN: No rashes. Small ecchymosis on right wrist. Warm and dry. HEAD: Atraumatic. Normocephalic. EYES: Pupils equal round and reactive. Extraocular motions intact. No scleral icterus. No injection or drainage. ENT: Throat without erythema, tonsillar hypertrophy or exudate. Uvula midline. Airway patent. NECK: Trachea midline. No JVD or lymphadenopathy. CARDIOVASCULAR: Regular rate and rhythm without murmurs, gallops, or rubs. RESPIRATORY: Clear to auscultation. Breath sounds equal bilaterally. No wheezes , rales, or rhonchi. No increased work of breathing. GASTROINTESTINAL: Abdomen soft, non-tender, nondistended. MUSCULOSKELETAL: Extremities without edema. NEUROLOGICAL: Awake and alert and oriented. Motor and sensory grossly within normal limits. Normal speech. Pt update on day of discharge Written by Eva Davila, acting as scribe for [] on 09/15/17 at 1257. Follow up pneumonia, dyspnea and cough and dizziness. Patient seen and examined , lying in bed resting comfortably. Denies any further dizziness. Continue supplemental O2. Eager to go home. States he feels better. Denies any acute changes. Dyspnea, dizziness and nasal congestion improved. Hospital Course Patient presented with left lower lobe pneumonia with acute on chronic respiratory failure, initially required 4 L of oxygen. CXR showing left lower lobe infiltrate with underlying chronic interstitial changes. Some leukocytosis was noted, WBC 14. Afebrile while hospitalized. Blood cultures were drawn which showed no growth to date. Was placed on Aztreonam IV and Zithromax PO and will send home on Ceftin and continue Zithromax. Duo nebs were ordered PRN as needed. Patient did develop some nasal congestion for which Flonase was ordered. Improved upon discharge. Other chronic problems include BPH, anxiety/ depression and PAD which were all stable during hospitalization, home medications were continued appropriately. Pt Condition on Discharge: Stable Discharge Disposition: Discharge Home Discharge Time: > 30 minutes Discharge Instructions DIET: Follow Instructions for: Heart Healthy Diet Speech Therapy-Diet Recommends: Regular Activities you can perform: Regular-No Restrictions Follow up Referrals: PCP Follow-up - 1 Week New Medications: Azithromycin (Azithromycin) 500 Mg Tab 500 MG PO DAILY for Infection, #5 TAB 0 Refills Cefdinir (Cefdinir) 300 Mg Cap 300 MG PO BID for Infection, #14 CAP 0 Refills Continued Medications: Albuterol 8.5 GM Inh (Proair Hfa 8.5 GM Inh) 90 Mcg/Act Aer 2 PUFF INH Q4-6H PRN for SHORTNESS OF BREATH, #1 INHALER 0 Refills 108 mcg/actuation Aspirin (Aspirin Low Dose) 81 Mg Chew 81 MG CHEW DAILY, TAB 0 Refills Budesonide-Formoterol Inh (Symbicort Inh) 160-4.5 Mcg/Act Aero 2 PUFF INH Q12HR, #1 INHALER 0 Refills Ipratropium-Albuterol Neb (Duoneb) 0.5-2.5 Mg/3 Ml Neb 1 NEBULE INH Q4HR NEB for SHORTNESS OF BREATH, #120 NEBULE 0 Refills Metoprolol Succinate ER 24 HR (Metoprolol Succinate ER 24 HR) 50 Mg Tab 50 MG PO DAILY, #30 TAB 0 Refills Simvastatin (Simvastatin) 40 Mg Tab 40 MG PO HS for Cholesterol Management, #30 TAB 0 Refills Tamsulosin (Tamsulosin) 0.4 Mg Cap 0.4 MG PO HS for Manage Prostate Problems, #30 CAP 0 Refills Trazodone (Trazodone) 100 Mg Tablet 200 MG PO HS for Control Depression, #30 TAB 0 Refills Venlafaxine (Effexor) 37.5 Mg Tab 37.5 MG PO HS, #60 TAB 0 Refills Additional Information This note was transcribed by scribe. Glez, Dr. Martha Boston personally performed the history, physical exam, and medical decision making; and confirmed the accuracy of the information in the transcribed note. Authenticated by Dr. Martha Boston on 09/15/17 at 13:16. Eva Davila Sep 15, 2017 12:57 Martha Boston MD Sep 15, 2017 13:16
[2017-09-15] MEDS ORDERED: CEFD300C PO (13:16)
[2017-09-15] MEDS ORDERED: AZIT500T2 PO (13:16)
== END 2017-09-15 15:45 | disposition home or self-care (01) | DRG 193 ==
LOC: PHED 08:26 → PHEDA 10:32 → PH3A 12:05
PROVIDERS: ADMIT Family Medicine; ATTEND Family Medicine
DX: J18.9 Pneumonia, unspecified organism (principal); J96.21 Acute and chronic respiratory failure with hypoxia; I95.9 Hypotension, unspecified; Z99.81 Dependence on supplemental oxygen; E86.0 Dehydration; J44.0 Chronic obstructive pulmonary disease with (acute) lower respiratory infection; N40.0 Benign prostatic hyperplasia without lower urinary tract symptoms; F41.9 Anxiety disorder, unspecified; F32.9 Major depressive disorder, single episode, unspecified; I73.9 Peripheral vascular disease, unspecified; R09.81 Nasal congestion; E78.00 Pure hypercholesterolemia, unspecified; I10 Essential (primary) hypertension; Z87.891 Personal history of nicotine dependence; Z88.0 Allergy status to penicillin; Z88.1 Allergy status to other antibiotic agents
CPT/HCPCS: 36600; 71010; 80048; 82805; 83605; 83735; 83880; 84484; 85025; 85610; 85730; 87040; 93005; 94640; 94664; 96361; 96374; J1650; J3370; J7030; J7050

== ENCOUNTER 2017-11-27 12:09 | Observation (INO) | payer MEDICARE, MEDICAID ==
[2017-11-27] VITALS (7 sets, daily range): BP systolic 107–163; BP diastolic 66–83; PULSE 52–63; RESP 20; TEMP 96.7–97.9; O2SAT 88–95
[~2017-11-27 12:09] MED LIST changes: -ALBU0.08 NEB; +AZIT500T2 PO; +CEFD300C PO; -DOXY100T PO; +IPRASOL INH; -PRED20 PO
--- NOTE | 2017-11-27 12:18 | PD ---
HPI Chief Complaint: chest pain Time Seen by Provider: 12:14 Travel History International Travel<30 days: No Contact w/Intl Traveler<30days: No Traveled to known affect area: No History of Present Illness HPI This 72-year-old male says he was having an argument with another gentleman. He says he had carried away any started having chest pain and shortness of breath. He is having a substernal chest pain which is breathing. He is not aware of any history of heart disease. Review of chart shows that he has been here in the past and had a mild elevation of troponin but he declined workup at that time. He does have a history of COPD. He does not smoke at this time. He is having a very sharp substernal pain which is aggravated by breathing. He is more short of breath than usual. There is no radiation of the pain. He says he was feeling well prior to the argument. He has a history of COPD and is on 2-1/2 L of oxygen at home PFSH Past Medical History Hx Anticoagulant Therapy: Yes Arthritis: Yes Asthma: Yes Autoimmune Disease: No Anxiety: Yes Depression: Yes Heart Rhythm Problems: No Cancer: No Cardiovascular Problems: Yes High Cholesterol: Yes Chemotherapy: No Chest Pain: No Congestive Heart Failure: No COPD: Yes Cerebrovascular Accident: No Coronary Artery Disease: Yes Diabetes: No Diminished Hearing: No Endocrine: No Gastrointestinal Disorders: No GERD: No Genitourinary: No Headaches: Yes Hepatitis: No Hiatal Hernia: Yes Hypertension: Yes Immune Disorder: No Implanted Vascular Access Dvce: No Kidney Stones: No Musculoskeletal: No Neurologic: Yes (rosa isela hands numbness/tingling) Psychiatric: Yes Reproductive: No Respiratory: Yes Immunizations Current: Yes Migraines: No Radiation Therapy: No Renal Failure: No Seizures: No Sleep Apnea: No Thyroid Disease: No Ulcer: No Past Surgical History AICD: No Arteriovenous Shunt: No Cardiac Surgery: Yes (LEFT CAROTID ARTERY ENDARECTOMY) Cholecystectomy: Yes Ear Surgery: No Endocrine Surgery: No Eye Surgery: No Genitourinary Surgery: No Insulin Pump: No Joint Replacement: No Neurologic Surgery: No Oral Surgery: No Pacemaker: No Thoracic Surgery: No Other Surgery: Yes (HERNIA REPAIR) Social History Alcohol Use: No Tobacco Use: No (QUIT 2005) Substance Use: No Allergies-Medications (Allergen,Severity, Reaction): Coded Allergies: levofloxacin (Unverified Allergy, Mild, ITCHING, 09/12/17) penicillin G (Unverified Allergy, Mild, RASH, 09/12/17) Reported Meds & Prescriptions Reported Meds & Active Scripts Active Reported Xanax (Alprazolam) 0.5 Mg Tab 0.5 Mg PO Q8H PRN Duoneb (Ipratropium-Albuterol Neb) 0.5-2.5 Mg/3 Ml Neb 1 Nebule INH Q4HR NEB Aspirin Low Dose (Aspirin) 81 Mg Chew 81 Mg CHEW DAILY Trazodone (Trazodone HCl) 100 Mg Tablet 200 Mg PO HS Effexor (Venlafaxine HCl) 37.5 Mg Tab 37.5 Mg PO HS Tamsulosin (Tamsulosin HCl) 0.4 Mg Cap 0.4 Mg PO HS Simvastatin 40 Mg Tab 40 Mg PO HS Proair Hfa 8.5 GM Inh (Albuterol Sulfate) 90 Mcg/Act Aer 2 Puff INH Q4-6H PRN 108 mcg/actuation Metoprolol Succinate ER 24 HR (Metoprolol Succinate) 50 Mg Tab 50 Mg PO DAILY Symbicort Inh (Budesonide/Formoterol Fumarate) 160-4.5 Mcg/Act Aero 2 Puff INH Q12HR Review of Systems General / Constitutional: No: Fever, Chills Eyes: No: Diploplia, Blurred Vision HENT: No: Headaches, Vertigo Cardiovascular: Positive: Chest Pain or Discomfort, No: Palpitations, Irregular Rhythm Respiratory: Positive: Cough, Shortness of Breath, Wheezing Gastrointestinal: No: Nausea, Vomiting Genitourinary: No: Urgency, Frequency Musculoskeletal: No: Myalgias, Arthralgias Skin: No Rash, No Itching Neurologic: No: Weakness, Dizziness Endocrine: No: Heat Intolerance, Cold Intolerance Hematologic/Lymphatic: No: Easy Bruising Physical Exam Narrative GENERAL: Well-developed male. On arrival he is short of breath SKIN: Focused skin assessment warm/dry. HEAD: Atraumatic. Normocephalic. EYES: Pupils equal and round. No scleral icterus. No injection or drainage. ENT: No nasal bleeding or discharge. Mucous membranes pink and moist. NECK: Trachea midline. No JVD. CARDIOVASCULAR: Regular rate and rhythm. No murmur appreciated. RESPIRATORY: No accessory muscle use. Clear to auscultation there are occasional wheezes GASTROINTESTINAL: Abdomen soft, non-tender, nondistended. Hepatic and splenic margins not palpable. MUSCULOSKELETAL: No obvious deformities. No clubbing. No cyanosis. No edema. NEUROLOGICAL: Awake and alert. No obvious cranial nerve deficits. Motor grossly within normal limits. Normal speech. PSYCHIATRIC: Appropriate mood and affect; insight and judgment normal. Data Data Last Documented VS Vital Signs Date Time Temp Pulse Resp B/P (MAP) Pulse Ox O2 Delivery O2 Flow Rate FiO2 11/27/17 13:00 20 97 Nasal Cannula 2.00 11/27/17 12:25 97.9 52 163/83 (109) Orders Orders Complete Blood Count With Diff (11/27/17 12:16) Comprehensive Metabolic Panel (11/27/17 12:16) Troponin I (11/27/17 12:16) B-Type Natriuretic Peptide (11/27/17 12:16) Prothrombin Time / Inr (Pt) (11/27/17 12:16) Act Partial Throm Time (Ptt) (11/27/17 12:16) Magnesium (Mg) (11/27/17 12:16) Chest, Single Ap (11/27/17 12:24) Ondansetron Inj (Zofran Inj) (11/27/17 12:30) Morphine Inj (Morphine Inj) (11/27/17 12:30) Electrocardiogram (11/27/17 13:31) Labs Laboratory Tests Test 11/27/17 12:30 White Blood Count 5.1 TH/MM3 Red Blood Count 5.50 MIL/MM3 Hemoglobin 16.5 GM/DL Hematocrit 51.0 % Mean Corpuscular Volume 92.6 FL Mean Corpuscular Hemoglobin 30.0 PG Mean Corpuscular Hemoglobin Concent 32.4 % Red Cell Distribution Width 13.8 % Platelet Count 208 TH/MM3 Mean Platelet Volume 6.7 FL Neutrophils (%) (Auto) 61.8 % Lymphocytes (%) (Auto) 22.3 % Monocytes (%) (Auto) 10.5 % Eosinophils (%) (Auto) 4.4 % Basophils (%) (Auto) 1.0 % Neutrophils # (Auto) 3.2 TH/MM3 Lymphocytes # (Auto) 1.1 TH/MM3 Monocytes # (Auto) 0.5 TH/MM3 Eosinophils # (Auto) 0.2 TH/MM3 Basophils # (Auto) 0.1 TH/MM3 CBC Comment DIFF FINAL Differential Comment Prothrombin Time 10.1 SEC Prothromb Time International Ratio 1.0 RATIO Activated Partial Thromboplast Time 26.6 SEC Blood Urea Nitrogen 10 MG/DL Creatinine 1.20 MG/DL Random Glucose 82 MG/DL Total Protein 7.3 GM/DL Albumin 3.8 GM/DL Calcium Level 8.6 MG/DL Magnesium Level 2.1 MG/DL Alkaline Phosphatase 111 U/L Aspartate Amino Transf (AST/SGOT) 36 U/L Alanine Aminotransferase (ALT/SGPT) 29 U/L Total Bilirubin 0.4 MG/DL Sodium Level 139 MEQ/L Potassium Level 4.1 MEQ/L Chloride Level 106 MEQ/L Carbon Dioxide Level 28.5 MEQ/L Anion Gap 5 MEQ/L Estimat Glomerular Filtration Rate 60 ML/MIN Troponin I 0.03 NG/ML B-Type Natriuretic Peptide 29 PG/ML [facility] Medical Decision Making Medical Screen Exam Complete: Yes Emergency Medical Condition: Yes Medical Record Reviewed: Yes Differential Diagnosis Differential includes anxiety, coronary artery disease, COPD exacerbation Narrative Course EKG shows sinus rhythm at a rate of 58. There is inverted T waves in V1 through V4. Review of previous chart shows that he has had some T inversions in the past. His troponin is normal. He was given 2 mg of morphine and his pain has settled down. His shortness of breath has improved as well as considerably. I spoke with the patient at some length and he was agreeable to evaluation of his chest pain however he got on the phone and decided that he would not stay. Diagnosis Primary Impression: Chest pain Disposition: 07 AGAINST MEDICAL ADVICE Condition: Rob Raman MD Nov 27, 2017 12:18
[2017-11-27] MEDS ORDERED: ONDANSETRON HCL 4 MG/2 ML VIAL IV PUSH ONE (12:30)
[2017-11-27] MEDS ORDERED: MORPHINE SULFATE 2 MG/ML INJ IV PUSH ONE (12:30)
[2017-11-27] MEDS ORDERED: ALPR.5 PO (12:31)
[2017-11-27 12:44] LABS: AUTOMATED NEUTROPHIL # 3.2 TH/MM3 (1.8-7.7); BASOPHIL # 0.1 TH/MM3 (0-0.2); EOSINOPHIL # 0.2 TH/MM3 (0-0.4); EOSINOPHIL % 4.4 % (0.0-4.0); HEMOGLOBIN 16.5 GM/DL (13.0-17.0); LYMPH % 22.3 % (9.0-44.0); LYMPHOCYTE # 1.1 TH/MM3 (1.0-4.8); MEAN CELL VOLUME 92.6 FL (80.0-100.0); MEAN CORPUSCULAR HGB CONC 32.4 % (32.0-36.0); MEAN PLATELET VOLUME 6.7 FL (7.0-11.0); MONO % 10.5 % (0.0-8.0); MONOCYTE # 0.5 TH/MM3 (0-0.9); NEUT % 61.8 % (16.0-70.0); PLATELET COUNT 208 TH/MM3 (150-450); RED CELL DISTRIBUTION WIDTH 13.8 % (11.6-17.2); WHITE BLOOD COUNT 5.1 TH/MM3 (4.0-11.0)
[2017-11-27 12:50] LABS: CHLORIDE 106 MEQ/L (98-107); SODIUM (NA) 139 MEQ/L (136-145)
[2017-11-27 12:53] LABS: CALCIUM 8.6 MG/DL (8.5-10.1)
[2017-11-27 12:54] LABS: ALBUMIN 3.8 GM/DL (3.4-5.0); BICARBONATE 28.5 MEQ/L (21.0-32.0); BLOOD UREA NITROGEN 10 MG/DL (7-18); GLUCOSE,RANDOM 82 MG/DL (74-106); MAGNESIUM 2.1 MG/DL (1.5-2.5)
[2017-11-27 12:57] LABS: ALT (GPT) 29 U/L (12-78); AST (GOT) 36 U/L (15-37); GLOMERULAR FILTRATION RATE 60 ML/MIN (>89)
[2017-11-27 12:59] LABS: TOTAL BILIRUBIN ADULT 0.4 MG/DL (0.2-1.0); TOTAL PROTEIN 7.3 GM/DL (6.4-8.2)
[2017-11-27 13:00] LABS: ALKALINE PHOSPHATASE 111 U/L (45-117)
[2017-11-27 13:02] LABS: TROPONIN I 0.03 NG/ML (0.02-0.05)
[2017-11-27 13:03] LABS: PROTHROMBIN TIME - PATIENT 10.1 SEC (9.8-11.6)
--- NOTE | 2017-11-27 13:07 | RADRPT ---
EXAM DATE/TIME: 11/27/2017 12:33 [facility] COMPARISON: CHEST SINGLE AP, September 12, 2017, 9:15. INDICATIONS : Chest pain MEDICAL HISTORY : Chronic obstructive pulmonary disease. Emphysema. Hypertension SURGICAL HISTORY : Cholecystectomy. ENCOUNTER: Initial ACUITY: 1 day PAIN SCORE: Non-responsive. LOCATION: Bilateral chest FINDINGS: Portable AP view of the chest demonstrates a normal-sized cardiac silhouette. Lungs are underinflated with interstitial prominence bilaterally. No effusion, consolidation, or pneumothorax is identified. The bones and soft tissues demonstrate no acute finding. CONCLUSION: Chronic interstitial prominence bilaterally. No acute abnormality is identified. John Damon MD on November 27, 2017 at 13:04 Board Certified Radiologist. This report was verified electronically.
[2017-11-27] MEDS ORDERED: ACETAMINOPHEN/HYDROcodone 325 MG/7.5 MG TAB PO PRN (15:15)
[2017-11-27] MEDS ORDERED: SODIUM CHLORIDE 0.9% FLUSH 10 ML FLUSH IV FLUSH PRN (15:15)
[2017-11-27] MEDS ORDERED: ACETAMINOPHEN 500 MG CPLT PO PRN (15:15)
[2017-11-27] MEDS ORDERED: NITROGLYCERIN 0.4 MG SL 25 TABS/BTL SL PRN (15:15)
[2017-11-27] MEDS ORDERED: ONDANSETRON HCL 4 MG/2 ML VIAL IV PUSH PRN (15:15)
--- NOTE | 2017-11-27 15:27 | HHI.HP ---
HPI Service [facility] Primary Care Physician Jessica Yeboah MD Admission Diagnosis CHEST PAIN Diagnoses: (1) Chest pain Diagnosis: Principal Chief Complaint: Chest pain Travel History International Travel<30 Days: No Contact w/Intl Traveler <30 Da: No Traveled to Known Affected Are: No History of Present Illness 72 year-old male with known history of chronic respiratory failure, hypoxia, chronic obstructive pulmonary disease, hypertension, hyperlipidemia who presented to the hospital because of chest pain. Patient states that approximately 10 AM this morning he was in a argument with somebody and developed a sudden onset of midsternal chest pain radiating into his back which he classifies 8/10 on a pain scale. He did not have any nausea, vomiting, diaphoresis, lightheadedness, dizziness. Patient did experience shortness of breath. The patient pain was constant until he came to the emergency department and he was given morphine with complete resolution of his pain. Because the patient's increased risk factors is recommended by ER physician the patient be observed and chest pain center for further evaluation and management. Patient has had previous admission the hospital with elevated troponin levels. That time patient was followed by electromedical service engineer Dr. Castano. His office was called today and it was indicated that the patient had not done any outpatient follow-up. Patient does confirm this when speaking to him. He did not know that he was supposed to follow-up for a stress test. Review of Systems Respiratory: COMPLAINS OF: Shortness of breath Cardiovascular: COMPLAINS OF: Chest pain Except as stated in HPI: all other systems reviewed are Neg Past Family Social History Past Medical History Hypertension Chronic respiratory failure on home oxygen, BiPAP Chronic affective pulmonary disease Pulmonary nodules Hyperlipidemia Anxiety depression History carotid stenosis Past Surgical History Lung biopsy Carotid endarterectomy Cholecystectomy Inguinal hernia repair, bilateral Reported Medications Reported Meds & Active Scripts Active Reported Xanax (Alprazolam) 0.5 Mg Tab 0.5 Mg PO Q8H PRN Duoneb (Ipratropium-Albuterol Neb) 0.5-2.5 Mg/3 Ml Neb 1 Nebule INH Q4HR NEB Aspirin Low Dose (Aspirin) 81 Mg Chew 81 Mg CHEW DAILY Trazodone (Trazodone HCl) 100 Mg Tablet 200 Mg PO HS Effexor (Venlafaxine HCl) 37.5 Mg Tab 37.5 Mg PO HS Tamsulosin (Tamsulosin HCl) 0.4 Mg Cap 0.4 Mg PO HS Simvastatin 40 Mg Tab 40 Mg PO HS Proair Hfa 8.5 GM Inh (Albuterol Sulfate) 90 Mcg/Act Aer 2 Puff INH Q4-6H PRN 108 mcg/actuation Metoprolol Succinate ER 24 HR (Metoprolol Succinate) 50 Mg Tab 50 Mg PO DAILY Symbicort Inh (Budesonide/Formoterol Fumarate) 160-4.5 Mcg/Act Aero 2 Puff INH Q12HR Allergies: Coded Allergies: levofloxacin (Unverified Allergy, Mild, ITCHING, 09/12/17) penicillin G (Unverified Allergy, Mild, RASH, 09/12/17) Family History Reviewed and significant for stomach cancer with father who is at age 37. Mother lived until 84 with heart disease. Social History Patient quit smoking 12 years ago, prior to that he smoked 2 pack of service a day since he was 13 years old. Patient is patient registration rep occasionally. Denies any illicit drugs Physical Exam Vital Signs Vital Signs Date Time Temp Pulse Resp B/P (MAP) Pulse Ox O2 Delivery O2 Flow Rate FiO2 11/27/17 13:00 20 97 Nasal Cannula 2.00 11/27/17 12:25 97.9 52 20 163/83 (109) Physical Exam GENERAL: Well-developed, cachectic 6, in no acute distress. alert and orientated HEENT: Head is normocephalic without any lesions or masses noted. Facial features are symmetric. Eyes: Pupils equal round reactive to light. Extraocular muscles are intact. Conjunctivae were clear. Oropharyngeal: Pharynx without any erythema edema. Tongue is midline without deviation. Buccal mucosa is moist without any masses or lesions NECK: Supple without any masses. Trachea midline no deviation. No JVD, no bruits are appreciated CARDIAC: Regular rhythm, regular rate. S1/S2 are heard. No murmurs gallops or rubs. Patient does have reproducible midsternal chest pain at the area where the patient was complaining of pain LUNGS: Clear to auscultation bilaterally. No wheeze, rhonchi or rales. No use of accessory muscles on inspiration or expiration. ABDOMEN: Soft, nontender. Nondistended. Bowel sounds heard in all 4 quadrants. No organomegaly or masses. Negative rebound, negative guarding EXTREMITIES: No edema, pulses are equal bilaterally. No cyanosis or clubbing NEUROLOGY: Mood and affect appear appropriate. Cranial nerves II through XII grossly intact. Muscle strength 5/5 in upper and lower extremities bilaterally. Deep tendon reflexes are 2+ in upper and lower extremities bilaterally. Laboratory Laboratory Tests Test 11/27/17 12:30 White Blood Count 5.1 Red Blood Count 5.50 Hemoglobin 16.5 Hematocrit 51.0 Mean Corpuscular Volume 92.6 Mean Corpuscular Hemoglobin 30.0 Mean Corpuscular Hemoglobin Concent 32.4 Red Cell Distribution Width 13.8 Platelet Count 208 Mean Platelet Volume 6.7 Neutrophils (%) (Auto) 61.8 Lymphocytes (%) (Auto) 22.3 Monocytes (%) (Auto) 10.5 Eosinophils (%) (Auto) 4.4 Basophils (%) (Auto) 1.0 Neutrophils # (Auto) 3.2 Lymphocytes # (Auto) 1.1 Monocytes # (Auto) 0.5 Eosinophils # (Auto) 0.2 Basophils # (Auto) 0.1 CBC Comment DIFF FINAL Differential Comment Prothrombin Time 10.1 Prothromb Time International Ratio 1.0 Activated Partial Thromboplast Time 26.6 Blood Urea Nitrogen 10 Creatinine 1.20 Random Glucose 82 Total Protein 7.3 Albumin 3.8 Calcium Level 8.6 Magnesium Level 2.1 Alkaline Phosphatase 111 Aspartate Amino Transf (AST/SGOT) 36 Alanine Aminotransferase (ALT/SGPT) 29 Total Bilirubin 0.4 Sodium Level 139 Potassium Level 4.1 Chloride Level 106 Carbon Dioxide Level 28.5 Anion Gap 5 Estimat Glomerular Filtration Rate 60 Troponin I 0.03 B-Type Natriuretic Peptide 29 Result Diagram: 11/27/17 1230 11/27/17 1230 Imaging Last Impressions Chest X-Ray 11/27/17 1224 Signed Impressions: Service Date/Time: Monday, November 27, 2017 12:33 - CONCLUSION: Chronic interstitial prominence bilaterally. No acute abnormality is identified. MD Wade Lunsford VTE Risk Assessment Caprini VTE Risk Assessment: Mod/High Risk (score >= 2) Caprini Risk Assessment Model Point Value = 1 Point Value = 2 Point Value = 3 Point Value = 5 Age 41-60 Minor surgery BMI > 25 kg/m2 Swollen legs Varicose veins or History of unexplained or recurrent spontaneous Oral contraceptives or hormone replacement Sepsis (< 1 month) Serious lung disease, including pneumonia (< 1 month) Abnormal pulmonary function Acute myocardial infarction Congestive heart failure (< 1 month) History of inflammatory bowel disease Medical patient at bed rest Age 61-74 Arthroscopic surgery Major open surgery (> 45 min) Laparoscopic surgery (> 45 min) Malignancy Confined to bed (> 72 hours) Immobilizing plaster cast Central venous access Age >= 75 History of VTE Family history of VTE Factor V Leiden Prothrombin [id number] Lupus anticoagulant Anticardiolipin antibodies Elevated serum homocysteine Heparin-induced thrombocytopenia Other congenital or acquired thrombophilia Stroke (< 1 month) Elective arthroplasty Hip, pelvis, or leg fracture Acute spinal cord injury (< 1 month) Prophylaxis Regimen Total Risk Factor Score Risk Level Prophylaxis Regimen 0-1 Low Early ambulation 2 Moderate Order ONE of the following: *Sequential Compression Device (SCD) *Heparin 5000 units SQ BID 3-4 Higher Order ONE of the following medications: *Heparin 5000 units SQ TID *Enoxaparin/Lovenox 40 mg SQ daily (WT < 150 kg, CrCl > 30 mL/min) *Enoxaparin/Lovenox 30 mg SQ daily (WT < 150 kg, CrCl > 10-29 mL/min) *Enoxaparin/Lovenox 30 mg SQ BID (WT < 150 kg, CrCl > 30 mL/min) AND/OR *Sequential Compression Device (SCD) 5 or more Highest Order ONE of the following medications: *Heparin 5000 units SQ TID (Preferred with Epidurals) *Enoxaparin/Lovenox 40 mg SQ daily (WT < 150 kg, CrCl > 30 mL/min) *Enoxaparin/Lovenox 30 mg SQ daily (WT < 150 kg, CrCl > 10-29 mL/min) *Enoxaparin/Lovenox 30 mg SQ BID (WT < 150 kg, CrCl > 30 mL/min) AND *Sequential Compression Device (SCD) Assessment and Plan Assessment and Plan Chest pain, atypical Patient with increased risk factors include age, hypertension, hyperlipidemia , history tobacco use, family history of heart disease Pain is reproducible with palpation, could be secondary to muscle skeletal, costochondritis rule out any acute coronary event with serial cardiac enzymes We'll perform serial EKGs rule out any changes Will pursue nuclear stress test rule out any underlying ischemia if patient ruled out for acute coronary event Continue aspirin, nitroglycerin as needed, beta pamela, statin Chronic hypoxic respiratory failure, chronic obstructive pulmonary disease continue O2 supplementation maintain O2 sats greater than 92% Continue duo nebs Continue Symbicort Start incentive spirometry Hypertension, hyperlipidemia continue home medications Check lipid panel DVT prevention sequential compression devices Jl Senior Nov 27, 2017 15:27
[2017-11-27] MEDS ORDERED: RESP: ALBUTEROL 2.5 MG/IPRATROPIUM 0.5 MG NEB (PRN) NEB (15:30)
[2017-11-27] MEDS ORDERED: ALPRAZolam 0.5 MG TAB PO PRN (16:15)
[2017-11-27 16:20] LABS: TROPONIN I 0.03 NG/ML (0.02-0.05)
--- NOTE | 2017-11-27 17:24 | EKG ---
Date Performed: 11/27/2017 Time Performed: 12:11:57 PTAGE: 72 years EKG: Baseline artifact present SINUS BRADYCARDIA Nonspecific ST and T wave abnormalities ABNORMA L ECG Compared to prior electrocardiogram, rate has decreased and Nonspecific T wave changes are more marked PREVIOUS TRACING : 09/12/2017 08.39 DOCTOR: Franklin Monroe Interpretating Date/Time 11/27/2017 17:23:34
[2017-11-27] MEDS: RESP: ALBUTEROL 2.5 MG/IPRATROPIUM 0.5 MG NEB (SCH) NEB (18:15)
[2017-11-27 19:11] LABS: TROPONIN I 0.03 NG/ML (0.02-0.05)
--- NOTE | 2017-11-27 19:22 | EKG ---
Date Performed: 11/27/2017 Time Performed: 18:52:58 PTAGE: 72 years EKG: Sinus rhythm LOW QRS VOLTAGE IN EXTREMITY LEADS Nonspecific T wave changes ABNORMAL ECG No significant change fro m prior electrocardiogram. DOCTOR: Franklin Monroe Interpretating Date/Time 11/27/2017 19:20:24
[2017-11-27] MEDS: BUDESONIDE-FORMOTEROL 160/4.5 MCG INHALER INH SCH (20:59)
[2017-11-27] MEDS ORDERED: traZODone HCL 100 MG TAB PO SCH (21:00)
[2017-11-27] MEDS ORDERED: TAMSULOSIN HCL 0.4 MG CAP PO SCH (21:00)
[2017-11-27] MEDS ORDERED: PRAVASTATIN SOD 40 MG TAB PO SCH (21:00)
[2017-11-27] MEDS ORDERED: VENLAFAXINE HCL XR 37.5 MG CAP PO SCH (21:00)
[2017-11-27] MEDS ORDERED: TEMAZEPAM 15 MG CAP PO PRN (21:00)
[2017-11-27] MEDS: SODIUM CHLORIDE 0.9% FLUSH 10 ML FLUSH IV FLUSH SCH (21:00)
[2017-11-28] VITALS: BP 107/57; PULSE 57; RESP 20; TEMP 96; O2SAT 95
--- NOTE | 2017-11-28 05:24 | EKG ---
Date Performed: 11/27/2017 Time Performed: 15:38:08 PTAGE: 72 years EKG: Baseline artifact present SINUS BRADYCARDIA LOW QRS VOLTAGE IN EXTREMITY LEADS Nonspecific T wave changes ABNORMAL ECG No significant change from prior electrocardiogram. PREVIOUS TRACING : 11/27/2017 12.11 DOCTOR: Franklin Monroe Interpretating Date/Time 11/28/2017 05:23:01
[2017-11-28 07:50] VITALS: BP 110/68; PULSE 55; RESP 20; TEMP 95.6; O2SAT 92
[2017-11-28 08:00] VITALS: PULSE 66
[2017-11-28] MEDS: RESP: ALBUTEROL 2.5 MG/IPRATROPIUM 0.5 MG NEB (SCH) NEB (08:00)
[2017-11-28 08:22] VITALS: O2SAT 93
[2017-11-28] MEDS ORDERED: METOPROLOL SUCCINATE 50 MG EXTENDED RELEASE TAB PO SCH (09:00)
[2017-11-28] MEDS ORDERED: ASPIRIN 325 MG TAB PO SCH (09:00)
[2017-11-28] MEDS: BUDESONIDE-FORMOTEROL 160/4.5 MCG INHALER INH SCH (09:11)
[2017-11-28] MEDS: SODIUM CHLORIDE 0.9% FLUSH 10 ML FLUSH IV FLUSH SCH (09:12)
[2017-11-28] MEDS ORDERED: REGADENOSON INJ 0.4 MG/5 ML SYR IV ONE (10:09)
[2017-11-28 10:23] LABS: CHOLESTEROL/ HDL RATIO 2.68 RATIO; HDL CHOLESTEROL 56.3 MG/DL (40.0-60.0)
--- NOTE | 2017-11-28 10:52 | TR ---
Date Performed: 11/28/2017 Time Performed: 10:15:28 DOCTOR: Daniel Chambers DRUG LIST: CLINICAL HISTORY: REASON FOR TEST: REASON FOR ENDING: OBSERVATION: CONCLUSION: Lexiscan stress test was performed under standard four minute protocol. Radionuclid e was injected one minute prior to ending the test. No electrocardiographic abormalities were present to suggest ischemia. Nuclear imaging and interpretation are pending. COMMENTS:
--- NOTE | 2017-11-28 11:24 | RADRPT ---
EXAM DATE/TIME: 11/28/2017 09:34 [facility] COMPARISON: No previous studies available for comparison. INDICATIONS : Chest pain for 1 day. Angina. Coronary artery disease. DOSE: 25.8 mCi Tc99m Myoview at stress. 8.1 mCi Tc99m Myoview at rest. 0.4 mg Lexiscan STRESS SYMPTOMS: Short of breath. EJECTION FRACTION: 57% MEDICAL HISTORY : Chronic obstructive pulmonary disease. Hypertension. SURGICAL HISTORY : Cholecystectomy. Left carotid artery endarectomy. ENCOUNTER: Initial ACUITY: 1 day PAIN SCALE: 8/10 LOCATION: Left chest TECHNIQUE: The patient underwent pharmacologic stress with infusion of prescribed dose. Continuous ECG tracing was monitored during stress. Gated SPECT imaging was performed after stress and conventional SPECT i maging was performed at rest. The examination was performed on a SPECT/CT scanner, both attenuation and non-corrected datasets were reviewed. FINDINGS: DISTRIBUTION: The maximum perfused segment at stress is in the inferior wall. PERFUSION STUDY: The pattern of perfusion at stress is within normal limits. GATED STUDY: There is intact wall motion and thickening without hypokinetic or dyskinetic segments. CONCLUSION: 1. No evidence for significant ischemia. 2. Intact wall motion with EF of 57%. RISK CATEGORY: Low (<1% Annual Mortality Rate) Mohan Oglesby MD on November 28, 2017 at 11:07 Board Certified Radiologist. This report was verified electronically.
--- NOTE | 2017-11-28 11:30 | HHI.DCPOC ---
Discharge Care Plan Diagnosis: (1) Chest pain Goals to Promote Your Health * To prevent worsening of your condition and complications * To maintain your health at the optimal level Directions to Meet Your Goals Take your medications as prescribed Follow your dietary instruction Follow activity as directed Keep your appointments as scheduled Take your immunizations and boosters as scheduled If your symptoms worsen call your PCP, if no PCP go to Urgent Care Center or Emergency Room Smoking is Dangerous to Your Health. Avoid second hand smoke Call the 24-hour hour crisis hotline for domestic abuse at J[facility] Senior Nov 28, 2017 11:30
[2017-11-28 11:50] VITALS: BP 122/80; PULSE 82; RESP 20; TEMP 97.3; O2SAT 95
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
== END 2017-11-28 13:00 | disposition home or self-care (01) ==
LOC: PHED 12:09 → PHEDA 14:51 → PH3B 15:51
PROVIDERS: ADMIT Hospitalist; ATTEND Hospitalist
DX: R07.89 Other chest pain (principal); I25.10 Atherosclerotic heart disease of native coronary artery without angina pectoris; I10 Essential (primary) hypertension; J44.9 Chronic obstructive pulmonary disease, unspecified; M19.90 Unspecified osteoarthritis, unspecified site; E78.00 Pure hypercholesterolemia, unspecified; E78.5 Hyperlipidemia, unspecified; K44.9 Diaphragmatic hernia without obstruction or gangrene; R94.31 Abnormal electrocardiogram [ECG] [EKG]; R74.8 Abnormal levels of other serum enzymes; R91.8 Other nonspecific abnormal finding of lung field; I65.29 Occlusion and stenosis of unspecified carotid artery; F41.8 Other specified anxiety disorders; Z87.891 Personal history of nicotine dependence; Z99.81 Dependence on supplemental oxygen
CPT/HCPCS: 71045; 78452; 80053; 80061; 82550; 82552; 83735; 83880; 84484; 85025; 85610; 85730; 93005; 93017; 94150; 94664; 96374; 96375; 99285; A9502; G0378; J2270; J2405; J2785

== ENCOUNTER 2018-01-08 17:45 | Emergency (ER) | payer MEDICARE, MEDICAID ==
[~2018-01-08] VITALS: Ht 177.8 cm; Wt 67.0 kg
[~2018-01-08 17:45] MED LIST changes: +ALPR.5 PO; -AZIT500T2 PO; -CEFD300C PO
[2018-01-08 17:56] VITALS: BP 159/98; PULSE 116; RESP 26; TEMP 98.5; O2SAT 87
[2018-01-08] MEDS ORDERED: SODIUM CHLORIDE 0.9% FLUSH 10 ML FLUSH IVF PRN (18:00)
[2018-01-08] MEDS ORDERED: LORazepam 2 MG/ML VIAL IV PUSH SCH (18:00)
[2018-01-08 18:01] VITALS: O2SAT 94
[2018-01-08 18:12] LABS: AUTOMATED NEUTROPHIL # 5.3 TH/MM3 (1.8-7.7); BASOPHIL % 0.3 % (0.0-2.0); EOSINOPHIL # 0.1 TH/MM3 (0-0.4); EOSINOPHIL % 1.4 % (0.0-4.0); HEMOGLOBIN 16.2 GM/DL (13.0-17.0); LYMPH % 12.1 % (9.0-44.0); LYMPHOCYTE # 0.9 TH/MM3 (1.0-4.8); MEAN CELL VOLUME 90.4 FL (80.0-100.0); MEAN CORPUSCULAR HEMOGLOBIN 30.5 PG (27.0-34.0); MEAN CORPUSCULAR HGB CONC 33.7 % (32.0-36.0); MEAN PLATELET VOLUME 6.6 FL (7.0-11.0); MONO % 12.1 % (0.0-8.0); MONOCYTE # 0.9 TH/MM3 (0-0.9); NEUT % 74.1 % (16.0-70.0); PLATELET COUNT 174 TH/MM3 (150-450); RED BLOOD COUNT 5.31 MIL/MM3 (4.50-5.90); RED CELL DISTRIBUTION WIDTH 13.7 % (11.6-17.2); WHITE BLOOD COUNT 7.2 TH/MM3 (4.0-11.0)
--- NOTE | 2018-01-08 18:12 | PD ---
HPI . Shortness of breath Chief Complaint: Respiratory Symptoms Time Seen by Provider: 17:51 Travel History International Travel<30 days: No Contact w/Intl Traveler<30days: No Traveled to known affect area: No History of Present Illness HPI Patient presents to us by [facility] with the chief complaint of shortness of breath. Onset was today. He states that his shortness of breath is associated with subjective fevers and chills, tremors and white phlegm. Patient reports a history of COPD on chronic oxygen at 2-1/2 L. He states that he used his nebulizer machine at home twice today with no relief of his symptoms. He does endorse some relief of his shortness of breath with the nebulizer treatment given by EMS. The patient also received Solu-Medrol per EMS. Patient reports no obvious exacerbating factors. The symptoms were mildly relieved by a nebulizer treatment. Symptoms are moderate. PFSH Past Medical History Hx Anticoagulant Therapy: Yes Arthritis: Yes Asthma: Yes Autoimmune Disease: No Anxiety: Yes Depression: Yes Heart Rhythm Problems: No Cancer: No Cardiovascular Problems: Yes High Cholesterol: Yes Chemotherapy: No Chest Pain: No Congestive Heart Failure: No COPD: Yes Cerebrovascular Accident: No Coronary Artery Disease: Yes Diabetes: No Diminished Hearing: No Endocrine: No Gastrointestinal Disorders: No GERD: No Genitourinary: No Headaches: Yes Hepatitis: No Hiatal Hernia: Yes Hypertension: Yes Immune Disorder: No Implanted Vascular Access Dvce: No Kidney Stones: No Musculoskeletal: Yes Neurologic: Yes (rosa isela hands numbness/tingling) Psychiatric: Yes (" BAD TEMPER ") Reproductive: No Respiratory: Yes Immunizations Current: Yes Migraines: No Radiation Therapy: No Renal Failure: No Seizures: No Sleep Apnea: No Thyroid Disease: No Ulcer: No Tetanus Vaccination: < 5 Years Influenza Vaccination: Yes Past Surgical History AICD: No Arteriovenous Shunt: No Cardiac Surgery: Yes (LEFT CAROTID ARTERY ENDARECTOMY) Cholecystectomy: Yes Ear Surgery: No Endocrine Surgery: No Eye Surgery: No Genitourinary Surgery: No Insulin Pump: No Joint Replacement: No Neurologic Surgery: No Oral Surgery: No Pacemaker: No Thoracic Surgery: No Other Surgery: Yes (HERNIA REPAIR) Social History Alcohol Use: No Tobacco Use: No (QUIT 2005) Substance Use: No Allergies-Medications (Allergen,Severity, Reaction): Coded Allergies: levofloxacin (Unverified Allergy, Mild, ITCHING, 01/08/18) penicillin G (Unverified Allergy, Mild, RASH, 01/08/18) Reported Meds & Prescriptions Reported Meds & Active Scripts Active Reported Duoneb (Ipratropium-Albuterol Neb) 0.5-2.5 Mg/3 Ml Neb 1 Nebule INH Q4HR NEB Aspirin Low Dose (Aspirin) 81 Mg Chew 81 Mg CHEW DAILY Trazodone (Trazodone HCl) 100 Mg Tablet 200 Mg PO HS Effexor (Venlafaxine HCl) 37.5 Mg Tab 37.5 Mg PO HS Tamsulosin (Tamsulosin HCl) 0.4 Mg Cap 0.4 Mg PO HS Simvastatin 40 Mg Tab 40 Mg PO HS Proair Hfa 8.5 GM Inh (Albuterol Sulfate) 90 Mcg/Act Aer 2 Puff INH Q4-6H PRN 108 mcg/actuation Metoprolol Succinate ER 24 HR (Metoprolol Succinate) 50 Mg Tab 50 Mg PO DAILY Symbicort Inh (Budesonide/Formoterol Fumarate) 160-4.5 Mcg/Act Aero 2 Puff INH Q12HR Review of Systems Except as stated in HPI: all other systems reviewed are Neg General / Constitutional: Positive: Fever, Chills Respiratory: Positive: Cough, Shortness of Breath Neurologic: Positive: Tremor Physical Exam Narrative GENERAL: Chronically ill-appearing man who is at times very tremulous. SKIN: warm/dry. HEAD: Normocephalic. Atraumatic. EYES: Pupils equal and round. No scleral icterus. No injection or drainage. ENT: No nasal bleeding or discharge. Mucous membranes pink and moist. NECK: Trachea midline. Full range of motion without pain.. CARDIOVASCULAR: Regular rate and rhythm. Heart sounds normal. RESPIRATORY: No accessory muscle use. Clear to auscultation. Breath sounds equal bilaterally. GASTROINTESTINAL: Abdomen soft. Nontender. Bowel sounds present. Nondistended. MUSCULOSKELETAL: No obvious deformities. NEUROLOGICAL: Awake and alert. No obvious cranial nerve deficits. Motor grossly within normal limits. Normal speech. PSYCHIATRIC: Appropriate mood and affect; insight and judgment normal. Data Data Last Documented VS Vital Signs Date Time Temp Pulse Resp B/P (MAP) Pulse Ox O2 Delivery O2 Flow Rate FiO2 01/08/18 18:18 98.5 98 18 159/98 (118) 94 Nasal Cannula 3.00 Orders Orders Lorazepam Inj (Ativan Inj) (01/08/18 18:00) Complete Blood Count With Diff (01/08/18 17:56) Basic Metabolic Panel (Bmp) (01/08/18 17:56) B-Type Natriuretic Peptide (01/08/18 17:56) Iv Access Insert/Monitor (01/08/18 17:56) Oximetry (01/08/18 17:56) Oxygen Administration (01/08/18 17:56) Chest, Single Ap (01/08/18 17:56) Sodium Chloride 0.9% Flush (Ns Flush) (01/08/18 18:00) Labs Laboratory Tests Test 01/08/18 18:05 01/08/18 18:15 White Blood Count 7.2 TH/MM3 Red Blood Count 5.31 MIL/MM3 Hemoglobin 16.2 GM/DL Hematocrit 48.0 % Mean Corpuscular Volume 90.4 FL Mean Corpuscular Hemoglobin 30.5 PG Mean Corpuscular Hemoglobin Concent 33.7 % Red Cell Distribution Width 13.7 % Platelet Count 174 TH/MM3 Mean Platelet Volume 6.6 FL Neutrophils (%) (Auto) 74.1 % Lymphocytes (%) (Auto) 12.1 % Monocytes (%) (Auto) 12.1 % Eosinophils (%) (Auto) 1.4 % Basophils (%) (Auto) 0.3 % Neutrophils # (Auto) 5.3 TH/MM3 Lymphocytes # (Auto) 0.9 TH/MM3 Monocytes # (Auto) 0.9 TH/MM3 Eosinophils # (Auto) 0.1 TH/MM3 Basophils # (Auto) 0.0 TH/MM3 CBC Comment DIFF FINAL Differential Comment Blood Urea Nitrogen 15 MG/DL Creatinine 1.30 MG/DL Random Glucose 106 MG/DL Calcium Level 8.7 MG/DL Sodium Level 138 MEQ/L Potassium Level 3.9 MEQ/L Chloride Level 104 MEQ/L Carbon Dioxide Level 28.2 MEQ/L Anion Gap 6 MEQ/L Estimat Glomerular Filtration Rate 54 ML/MIN MDM Medical Decision Making Medical Screen Exam Complete: Yes Emergency Medical Condition: Yes Medical Record Reviewed: Yes (patient has been evaluated here in the recent past for chest pain. No cardiac etiology for his chest pain was discovered. The patient also had a recent visit here for pneumonia. That was back in August.) Interpretation(s) EKG will not be possible at this time because the patient is so tremulous that the EKG would not be interpretable Differential Diagnosis Differential diagnosis of dyspnea includes but is not limited to congestive heart failure, pneumonia, wheezing, pneumothorax, pulmonary embolism Narrative Course This patient presents with the chief complaint of dyspnea. Onset was today. He reports subjective fevers and chills along with some white phlegm production. His lungs are currently clear. His oxygen saturation is 94% on 3 L. He is usually on 2-1/2 L at home. I have ordered Ativan for the tremors. Workup is in progress to rule out pneumonia/sepsis. CBC & BMP Diagram 01/08/18 18:05 Calcium Level 8.7 Last Impressions Chest X-Ray 01/08/18 5916 Signed Impressions: Service Date/Time: Monday, January 08, 2018 18:28 - CONCLUSION: Mild chronic interstitial disease and trace bibasilar atelectasis. John Alston MD The chest x-ray was independently viewed by me. Vital Signs Date Time Temp Pulse Resp B/P (MAP) Pulse Ox O2 Delivery O2 Flow Rate FiO2 01/08/18 18:18 98.5 98 18 159/98 (118) 94 Nasal Cannula 3.00 01/08/18 18:02 (118) 01/08/18 18:01 94 Nasal Cannula 3.00 01/08/18 18:01 94 Nasal Cannula 3.00 01/08/18 17:56 98.5 116 26 159/98 (118) 87 Room Air 01/08/18 17:56 94 Nasal Cannula 3.00 This patient has maintained his oxygen saturation in the mid 90s 3 L of oxygen. He is usually on 2.5 L of oxygen. No acute etiology for his dyspnea was found. Specifically, he does not have pneumonia. He is medically stable for discharge. Sepsis Criteria SIRS Criteria (2 or more): Heart rate over 90, RR > 20 or PaCO2 < 32 Diagnosis Primary Impression: Dyspnea Qualified Codes: R06.00 - Dyspnea, unspecified Additional Impression: COPD (chronic obstructive pulmonary disease) Qualified Codes: J44.9 - Chronic obstructive pulmonary disease, unspecified Patient Instructions: COPD (Chronic Obstructive Pulmonary Disease) (DC), General Instructions Disposition: 01 DISCHARGE HOME Condition: Stable Carol Silva MD Jan 08, 2018 18:12
[2018-01-08 18:18] VITALS: BP 159/98; PULSE 98; RESP 18; TEMP 98.5; O2SAT 94
[2018-01-08 18:23] LABS: BICARBONATE 28.2 MEQ/L (21.0-32.0); CALCIUM 8.7 MG/DL (8.5-10.1)
[2018-01-08 18:27] LABS: CREATININE 1.3 MG/DL (0.60-1.30)
--- NOTE | 2018-01-08 18:42 | RADRPT ---
EXAM DATE/TIME: 01/08/2018 18:28 [facility] COMPARISON: CHEST SINGLE AP, November 27, 2017, 12:33. INDICATIONS : Shortness of breath, decreasing O2 saturation MEDICAL HISTORY : Chronic obstructive pulmonary disease. Hypertension SURGICAL HISTORY : Cholecystectomy. Left carotid artery endarectomy ENCOUNTER: Initial ACUITY: 1 day PAIN SCORE: 0/10 LOCATION: Bilateral chest FINDINGS: Trace atelectasis seen at the bases, superimposed on mild, chronic appearing interstitial disease. No large or dense/confluent consolidation. No pleural effusion seen. No pneumothorax. Heart size stable, within normal limits. CONCLUSION: Mild chronic interstitial disease and trace bibasilar atelectasis. John Alston MD on January 08, 2018 at 18:39 Board Certified Radiologist. This report was verified electronically.
[2018-01-08 19:34] VITALS: BP 129/74
== END 2018-01-08 19:48 | disposition home or self-care (01) ==
LOC: PHED 17:45
DX: J44.9 Chronic obstructive pulmonary disease, unspecified (principal); I10 Essential (primary) hypertension; E78.00 Pure hypercholesterolemia, unspecified; Z87.891 Personal history of nicotine dependence
CPT/HCPCS: 71045; 80048; 83880; 85025; 96374; 99284; J2060